=== PATIENT | female | born 1940 | race Caucasian/White ===

== ENCOUNTER 2020-07-27 07:43 | Outpatient (REF) | payer MEDICARE, OTHER, SELFPAY ==
[2020-07-27 11:39] LABS: Hematocrit 38.5 % (37-47); Hemoglobin 12.3 g/dl (12.0-16.0); Mean Corpuscular HGB Conc 31.9 g/dl (31.0-35.0); Mean Corpuscular Hemoglobin 32.8 pg (27.0-33.0); Mean Corpuscular Volume 102.7 fL (80-98); Mean Platelet Volume 10.4 fL (9.4-12.3); Platelet Count 222 X10*3/uL (160-400); Red Blood Count 3.75 X10*6/uL (4.20-5.50); Red Cell Distribution Width 16.6 % (11.0-16.0); White Blood Count 5.1 X10*3/uL (4.8-10.8)
[2020-07-27 12:23] LABS: Alanine Aminotransferase 11 U/L (0-31); Anion Gap 16 (12-20); Aspartate Amino Transferase 18 U/L (5-31); Blood Urea Nitrogen 14 mg/dL (9-16); Calcium 8.5 mg/dL (8.4-10.2); Carbon Dioxide 26 mmol/L (22-29); Chloride 105 mmol/L (96-108); Cholesterol 205 mg/dL; Estimated Glomerular Filt Rate > 60; Glucose Fasting 75 mg/dL (60-99); HDL Cholesterol 61 mg/dL; LDL Cholesterol Calculated 101 mg/dl; Potassium 4.6 mmol/l (3.3-5.1); Sodium 142 mmol/L (135-145); Triglycerides 218 mg/dL
[2020-07-27 12:48] LABS: Free T4 (Free Thyroxine) 1.33 ng/dL (0.71-1.85)
[2020-07-27 13:15] LABS: Thyroid Stimulating Hormone 10.03 mIU/mL (0.32-4.0); Vitamin D 25-OH Total 29.3 ng/mL (>30)
== END 2020-07-27 07:44 | disposition home or self-care (01) ==
LOC: HO.HMGCLDS 07:43
PROVIDERS: PCP Internal Medicine; Visit Provider Internal Medicine
DX: E78.5 Hyperlipidemia, unspecified (principal); I10 Essential (primary) hypertension; K21.9 Gastro-esophageal reflux disease without esophagitis; M06.9 Rheumatoid arthritis, unspecified; E03.9 Hypothyroidism, unspecified; Z78.0 Asymptomatic menopausal state; Z96.651 Presence of right artificial knee joint; K59.03 Drug induced constipation; T40.2X5A Adverse effect of other opioids, initial encounter
CPT/HCPCS: 36415; 80048; 80061; 82306; 84439; 84443; 84450; 84460; 85027

== ENCOUNTER 2020-12-19 08:09 | Outpatient (REF) | payer MEDICARE, OTHER, SELFPAY ==
[2020-12-19 12:16] LABS: Free T4 (Free Thyroxine) 1.22 ng/dL (0.71-1.85); Thyroid Stimulating Hormone 2.68 uIU/mL (0.32-4.0); Vitamin D 25-OH Total 41.3 ng/mL (>30)
[2020-12-19 12:29] LABS: Alanine Aminotransferase 16 U/L (0-31); Aspartate Amino Transferase 18 U/L (5-31); Cholesterol 176 mg/dL; HDL Cholesterol 67 mg/dL; LDL Cholesterol Calculated 89 mg/dl; Triglycerides 104 mg/dL
== END 2020-12-19 08:10 | disposition home or self-care (01) ==
LOC: HO.HMGCLDS 08:09
PROVIDERS: PCP Internal Medicine; Visit Provider Internal Medicine
DX: E03.9 Hypothyroidism, unspecified (principal); E78.5 Hyperlipidemia, unspecified; I10 Essential (primary) hypertension; Z78.0 Asymptomatic menopausal state
CPT/HCPCS: 36415; 80061; 82306; 84439; 84443; 84450; 84460

== ENCOUNTER 2021-06-27 08:28 | Outpatient (REF) | payer MEDICARE, OTHER, SELFPAY ==
[2021-06-27 11:52] LABS: Alanine Aminotransferase 14 U/L (0-31); Anion Gap 14 (12-20); Aspartate Amino Transferase 17 U/L (5-31); Blood Urea Nitrogen 12 mg/dL (9-16); Calcium 9.3 mg/dL (8.4-10.2); Carbon Dioxide 27 mmol/L (22-29); Chloride 105 mmol/L (96-108); Cholesterol 176 mg/dL; Estimated Glomerular Filt Rate > 60; Glucose Fasting 86 mg/dL (60-99); HDL Cholesterol 57 mg/dL; LDL Cholesterol Calculated 96 mg/dl; Potassium 4.6 mmol/L (3.3-5.1); Sodium 141 mmol/L (135-145); Triglycerides 116 mg/dL
[2021-06-27 12:15] LABS: Free T4 (Free Thyroxine) 1.25 ng/dL (0.71-1.85); Thyroid Stimulating Hormone 5.49 uIU/mL (0.32-4.0)
== END 2021-06-27 08:29 | disposition home or self-care (01) ==
LOC: HO.HMGCLDS 08:28
PROVIDERS: PCP Internal Medicine; Visit Provider Internal Medicine
DX: I10 Essential (primary) hypertension (principal); E78.5 Hyperlipidemia, unspecified; E03.9 Hypothyroidism, unspecified; Z78.0 Asymptomatic menopausal state
CPT/HCPCS: 36415; 80048; 80061; 82306; 84439; 84443; 84450; 84460

== ENCOUNTER 2021-09-11 10:03 | Emergency (ER) | payer MEDICARE, OTHER, SELFPAY ==
--- NOTE | ~2021-09-11 | CT_ITS ---
EXAMINATION: CT HIP WITHOUT CONTRAST, LEFT CLINICAL INFORMATION: Atraumatic left hip pain. COMPARISON: None TECHNIQUE: Helical scanning was performed with submillimeter collimation in the axial plane with multiplanar 2-D reconstructions. This CT examination was performed using dose optimization techniques as appropriate, variously including the following: *Automated exposure control *Adjustment of mA and/or kV according to patient size (this includes techniques or standardized protocols for targeted exams where dose is matched to indication/reason for exam; i.e. extremities or head) *Use of iterative reconstruction technique DLP: 412 mGy-cm FINDINGS: There is no acute fracture or malalignment. There is amku-dm-xfcanxjx narrowing of the left hip joint, most prominent posteriorly. There are small marginal osteophytes. There are small enthesophytes at the gluteus tendon insertion sites on the greater trochanter. There are small enthesophytes at the origins of the left hamstring tendons. There are also numerous punctate calcifications in the proximal left hamstring tendons suggesting calcific tendinosis. There are numerous sigmoid diverticula. The partially visualized intrapelvic structures are otherwise unremarkable. CT/CT hip LT wo con IMPRESSION: 1. Irma-ug-izrgaavx osteoarthritis of the left hip. 2. 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 3. Moderate sigmoid diverticulosis.
[2021-09-11 10:37] VITALS: BP 131/68; PULSE 77; RESP 18; TEMP 36.7; O2SAT 98; BMI 38.4
[2021-09-11] MEDS: traMADoL HCL 50 MG TABLET PO (11:44)
--- NOTE | 2021-09-11 12:15 | ED.LOWEXIN ---
HPI - Extremity Injury (Lower) General Chief Complaint: Extremity Injury, Lower Stated Complaint: Hip pain Time Seen by Provider: 09/11/21 11:33 Source: patient Mode of arrival: ambulatory Limitations: no limitations History of Present Illness HPI Narrative: 81-year-old female with a past medical history of herpes zoster, GERD, gastric ulcer, acquired hypothyroidism, nummular dermatitis, hyperlipidemia, hypertension, osteoarthritis and rheumatoid arthritis presenting to the ED with complaints of left hip pain that started a few days ago after she was at the mall shopping. She denies any fevers, chills, dizziness, headache, neck pain/stiffness, chest pain or shortness of breath, dyspnea on exertion, orthopnea, palpitations, abdominal pain, dysuria, hematuria, abnormal vaginal discharge, diarrhea constipation, black or bloody stools, history of DVT or PE, recent travel or immobilization, any estrogen usage, recent surgery or falls, lower extremity edema or calf tenderness, focal weakness, rashes or any other symptoms complaints or concerns at this time. MD complaint: hip injury Onset (ago): day(s) Type of Injury: unknown Place: other (Possibly after she left the mall or in the mall) Severity: moderate Severity scale (1-10): >10 Relieving factors: nothing Exacerbating factors: weight bearing, movement and palpation Context: walking Associated symptoms: able to partially bear weight Other symptoms: none Treatments prior to arrival: other (She has tried eeao-xik-yqtapzm medication no symptomatic relief) Related Data Home Medications Medication Instructions Recorded Confirmed flu vacc [id number](65yr up)-PF 240 ml IM 07/31/20 12/28/20 mcg/0.7 mL intramuscular syringe golimumab 12.5 mg/mL intravenous 100 mg IV Q8W 07/31/20 12/28/20 solution (Simponi ARIA) leucovorin calcium 5 mg tablet 10 mg PO Q OTHER DAY 07/31/20 12/28/20 methotrexate sodium 2.5 mg tablet 25 mg PO QWEEK 07/31/20 12/28/20 jnjedjzn-pqmscbz-sdqt-lutein tablet tab PO .qd tab 07/31/20 12/28/20 acetaminophen 650 mg 650 mg PO Q12H 12/28/20 12/28/20 tablet,extended release (Tylenol 8 Hour) Previous Rx's Medication Instructions Recorded levothyroxine 150 mcg tablet 150 mcg PO .qd for 6 days a week 09/08/20 90 Days #78 tab lisinopril 5 mg tablet 5 mg PO DAILY #90 tab 06/21/21 lovastatin 20 mg tablet 20 mg PO DAILY #90 tab 06/30/21 omeprazole 40 mg capsule,delayed 40 mg PO DAILY #90 cap 07/16/21 release acetaminophen 500 mg tablet 1,000 mg PO QID PRN #14 tab 09/11/21 (Tylenol Extra Strength) cyclobenzaprine 10 mg tablet 10 mg PO Q8H PRN #14 tab 09/11/21 levofloxacin 750 mg tablet 750 mg PO DAILY 7 Days #7 tab 09/11/21 oxycodone 5 mg tablet 5 mg PO Q6H PRN #14 tab 09/11/21 Allergies Allergy/AdvReac Type Severity Reaction Status Date / Time Penicillins [PENICILLINS] Allergy Unknown RASH Verified 12/28/20 10:53 aspirin AdvReac Unknown GI BLEED Verified 12/28/20 10:53 lactose AdvReac Unknown DIARRHEA Verified 12/28/20 10:53 Review of Systems Review of Systems: Constitutional : No Weight loss, No Fever, No Chills, No Night Sweats, No Fatigue, No Malaise ENT/Mouth : No Hearing loss, No Ear Pain, No Nasal Congestion, No Sinus Pain, No Hoarseness, No sore throat, No Rhinorrhea, No Swallowing Difficulty Eyes: No Eye Pain, No Swelling, No Redness, No Foreign Body, No Discharge, No Vision Changes Cardiovascular : No Chest Pain, No SOB, No Dyspnea on Exertion, No Orthopnea, No Edema, No Palpitations Respiratory : No Cough, No Sputum, No Wheezing, No Smoke Exposure, No Dyspnea Gastrointestinal : No Nausea, No Vomiting, No Diarrhea, No Constipation, No abdominal Pain, No Hematochezia, No Melena Genitourinary : no irregular bleeding, No Dysuria, No Urinary Frequency, No Hematuria, No Urinary Incontinence, No Urgency, No Flank Pain, No Urinary Flow Changes, No Hesitancy Musculoskeletal : + joint pain, No Myalgias, No Joint Swelling Skin : No Skin Lesions, No rash Neuro : No Weakness, No Numbness, No Paresthesias, No Loss of Consciousness, No Dizziness, No Headache Psych : No Anxiety/Panic, No Depression, No SI/HI/AH/VH, No Social Issues, Heme/Lymph: No Bruising, No Bleeding,No Lymphadenopathy Endocrine : No Polyuria, No Polydipsia, No Temperature Intolerance Yes all other systems are reviewed and are negative [facility] Past Medical History Attestation statement: The following information was validated with the patient. Medical History Acquired hypothyroidism Dyslipidemia Essential hypertension Gastric ulcer GERD (gastroesophageal reflux disease) Herpes zoster Menopause Nummular dermatitis Osteoarthritis Rheumatoid arthritis Surgical History History of cataract History of total hip replacement History of total left knee replacement (TKR) Family History Family History Father Cirrhosis Mother No problems noted. Social History Social History Alcohol intake: never Advance Directives: Yes Advance Directives Information Provided: Yes Advance Directives on File: No Physical Exam Vital Signs: Vital Signs: Last Vital Signs Temp 98.0 F 09/11/21 10:37 Pulse 77 09/11/21 10:37 Resp 18 09/11/21 10:37 BP 131/68 09/11/21 10:37 Pulse Ox 98 09/11/21 10:37 BMI result Body Mass Index 38.4 vital signs have been reviewed as normal and appeared to be correct. Blood pressure normal. Heart rate normal. Respiration rate normal. Temperature normal. Oxygen saturation normal. Appearance: Alert. Oriented X3. In pain otherwise no other acute distress. Head: Normal external exam. Normocephalic. Atraumatic. Eyes: PERRLA. EOMI. Conjunctiva and sclera normal. Eyelids normal. ENT: Pharynx normal. Uvula midline. Moist mucous membranes. No trismus noted. No drooling noted. No muffled voice noted. Neck: Normal inspection. Neck supple. FROM. No adenopathy. Thyroid Normal. No meningeal signs. No neck mass noted. CVS: Normal heart rate and rhythm. Heart sound normal. Pulses normal throughout. No murmurs/rales/gallops. Respiratory: No respiratory distress. Painless inspiration. Breath sounds normal. No wheezes/rales/rhonchi noted. Chest nontender. No accessory muscle usage noted or decreased air movement noted. Abdomen: Soft and nontender. Bowel sounds normal in all 4 quadrants. No distention noted. No organomegaly noted. No visible injury noted. Back: No CVA tenderness. Full range of motion noted. No rashes/lesion/induration/fluctuance or signs of infection noted. Skin: Skin warm and dry. Normal skin color. Normal skin turgor. No rashes/lesions/lacerations noted. Extremities: Patient moderate tenderness with palpation to the left hip at the lateral aspect although no obvious ligamentous or tendon injury. She does have full range of motion of the left hip/pelvis joint. No signs of infection. No lymphadenopathy noted. No medial tenderness or groin tenderness. No calf tenderness is noted. No lower extremity edema. Otherwise all other Extremities exhibit normal range of motion and nontender. Neuro: Oriented X 3. No motor deficit. No sensory deficit. Reflexes normal. Normal steady gait. No focal neuro deficits noted. Vascular: + radial pulses/+ 2 distal pedal pulses/+2 dorsalis pedis b/l. Normal cap refill. No cyanosis noted to upper extremity nails and lower extremity toes nails. Course Course Course Narrative: 11:40am - 81-year-old female with a past medical history of herpes zoster, GERD, gastric ulcer, acquired hypothyroidism, nummular dermatitis, hyperlipidemia, hypertension, osteoarthritis and rheumatoid arthritis presenting to the ED with complaints of left hip pain that started a few days ago after she was at the mall shopping. She denies any fevers, chills, dizziness, headache, neck pain/stiffness, chest pain or shortness of breath, dyspnea on exertion, orthopnea, palpitations, abdominal pain, dysuria, hematuria, abnormal vaginal discharge, diarrhea constipation, black or bloody stools, history of DVT or PE, recent travel or immobilization, any estrogen usage, recent surgery or falls, lower extremity edema or calf tenderness, focal weakness, rashes or any other symptoms complaints or concerns at this time. Will obtain a CT scan of hip left-sided provide symptomatic relief with tramadol then re-evaluate. Reevaluation(s) Reevaluation #1: - CT scan of left hip revealed to moderate osteoarthritis of left hip with calcified tendinitis the proximal left hamstring tendons and moderate sigmoid diverticulosis no evidence of diverticulitis. Therefore I printed out the results and given to the patient and explained to her that she should follow-up with her primary care provider will DC home with symptomatic treatment instructions return if any new or worsening symptoms. Patient and at bedside understand and agree this plan. Time: 13:55 MDM - Extremity Injury (Lower) Medical Records Attestation: I reviewed the patient's medical records. Imaging Data CT scan of left hip without contrast: Attestation: I personally reviewed and interpreted this imaging study as follows: Radiologist's impression: FINDINGS: There is no acute fracture or malalignment. There is khpo-jz-cqmdykfv narrowing of the left hip joint, most prominent posteriorly. There are small marginal osteophytes. There are small enthesophytes at the gluteus tendon insertion sites on the greater trochanter. There are small enthesophytes at the origins of the left hamstring tendons. There are also numerous punctate calcifications in the proximal left hamstring tendons suggesting calcific tendinosis. There are numerous sigmoid diverticula. The partially visualized intrapelvic structures are otherwise unremarkable.? CT/CT hip LT wo con IMPRESSION: 1. Utfm-uc-zpbatlmm osteoarthritis of the left hip. ? 2. 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 ? 3. Moderate sigmoid diverticulosis.? Discharge Plan Discharge Clinical Impression: Diverticulosis of sigmoid colon, Osteoarthritis of left hip, Calcifying tendinitis Patient Disposition: Home, Self-Care Instructions: Diverticulosis (ED), Osteoarthritis (ED), Tendinitis (ED) Prescriptions: New acetaminophen [Tylenol Extra Strength] 500 mg tablet 1,000 mg PO QID PRN (Reason: fever or pain) Qty: 14 RF: 0 oxycodone 5 mg tablet 5 mg PO Q6H PRN (Reason: pain) Qty: 14 RF: 0 cyclobenzaprine 10 mg tablet 10 mg PO Q8H PRN (Reason: Muscle spasm) Qty: 14 RF: 0 levofloxacin 750 mg tablet 750 mg PO DAILY 7 Days Qty: 7 RF: 0 No Action levothyroxine 150 mcg tablet 150 mcg PO .qd for 6 days a week 90 Days Qty: 78 RF: 4 lisinopril 5 mg tablet 5 mg PO DAILY Qty: 90 RF: 1 lovastatin 20 mg tablet 20 mg PO DAILY Qty: 90 RF: 1 omeprazole 40 mg capsule,delayed release(DR/EC) 40 mg PO DAILY Qty: 90 RF: 2 leucovorin calcium 5 mg tablet 10 mg PO Q OTHER DAY RF: 0 methotrexate sodium 2.5 mg tablet 25 mg PO QWEEK RF: 0 Fluzone HighDose Quad 20-21 PF 240 mcg/0.7 mL syringe IM RF: 0 Simponi ARIA 12.5 mg/mL solution 100 mg IV Q8W RF: 0 ahekwbzv-xdndokm-rfjt-lutein Tablet PO .qd RF: 0 acetaminophen [Tylenol 8 Hour] 650 mg tablet extended release 650 mg PO Q12H RF: 0 Referrals: Amaya Richey MD [Primary Care Provider] - 2 days Print Language: Montserratian
== END 2021-09-11 14:06 | disposition home or self-care (01) ==
PROVIDERS: Emergency Provider Emergency Medicine; PCP Internal Medicine
DX: M16.12 Unilateral primary osteoarthritis, left hip (principal); M65.20 Calcific tendinitis, unspecified site; K57.30 Diverticulosis of large intestine without perforation or abscess without bleeding; I10 Essential (primary) hypertension; M06.9 Rheumatoid arthritis, unspecified
CPT/HCPCS: 73700; 99283; 99284

== ENCOUNTER 2021-12-24 07:32 | Outpatient (REF) | payer MEDICARE, OTHER, SELFPAY ==
[2021-12-24 12:25] LABS: Alanine Aminotransferase 17 U/L (0-31); Albumin Level 4.3 g/dL (3.5-5.0); Alkaline Phosphatase 103 U/L (39-117); Anion Gap 13 (12-20); Aspartate Amino Transferase 19 U/L (5-31); Bilirubin Total 0.5 mg/dL (0.0-1.0); Blood Urea Nitrogen 16 mg/dL (9-16); Calcium 9.9 mg/dL (8.4-10.2); Carbon Dioxide 28 mmol/L (22-29); Chloride 106 mmol/L (96-108); Cholesterol 214 mg/dL; Estimated Glomerular Filt Rate > 60; Glucose Fasting 86 mg/dL (60-99); HDL Cholesterol 61 mg/dL; LDL Cholesterol Calculated 126 mg/dl; Potassium 4.5 mmol/L (3.3-5.1); Sodium 142 mmol/L (135-145); Total Protein 7.3 g/dL (6.5-8.0); Triglycerides 139 mg/dL
[2021-12-24 12:49] LABS: Free T4 (Free Thyroxine) 1.32 ng/dL (0.71-1.85); Thyroid Stimulating Hormone 2.74 uIU/mL (0.32-4.0); Vitamin D 25-OH Total 27.6 ng/mL (>30)
== END 2021-12-24 07:33 | disposition home or self-care (01) ==
LOC: HO.HMGCLDS 07:32
PROVIDERS: Visit Provider Internal Medicine
DX: K21.9 Gastro-esophageal reflux disease without esophagitis (principal); E03.9 Hypothyroidism, unspecified; E78.5 Hyperlipidemia, unspecified; I10 Essential (primary) hypertension; M06.9 Rheumatoid arthritis, unspecified; Z78.0 Asymptomatic menopausal state
CPT/HCPCS: 36415; 80053; 80061; 82306; 84439; 84443

== ENCOUNTER 2022-09-19 08:06 | Outpatient (REF) | payer MEDICARE, OTHER, SELFPAY ==
[2022-09-19 11:45] LABS: Alanine Aminotransferase 17 U/L (0-31); Anion Gap 12 (12-20); Aspartate Amino Transferase 25 U/L (5-31); Blood Urea Nitrogen 14 mg/dL (9-16); Calcium 9.5 mg/dL (8.4-10.2); Carbon Dioxide 25 mmol/L (22-29); Chloride 108 mmol/L (96-108); Cholesterol 234 mg/dL; Estimated Glomerular Filt Rate > 60; Glucose Fasting 98 mg/dL (60-99); HDL Cholesterol 57 mg/dL; LDL Cholesterol Calculated 147 mg/dl; Potassium 4.5 mmol/L (3.3-5.1); Sodium 140 mmol/L (135-145); Triglycerides 151 mg/dL
[2022-09-19 12:06] LABS: Free T4 (Free Thyroxine) 1.37 ng/dL (0.71-1.85); Thyroid Stimulating Hormone 1.03 uIU/mL (0.32-4.0); Vitamin D 25-OH Total 27.5 ng/mL (>30)
== END 2022-09-19 08:07 | disposition home or self-care (01) ==
LOC: HO.HMGCLDS 08:06
PROVIDERS: Absent Provider Internal Medicine Rheumatology; PCP Internal Medicine; Visit Provider Internal Medicine
DX: E03.9 Hypothyroidism, unspecified (principal); E78.5 Hyperlipidemia, unspecified; I10 Essential (primary) hypertension; Z78.0 Asymptomatic menopausal state
CPT/HCPCS: 36415; 80048; 80061; 82306; 84439; 84443; 84450; 84460

== ENCOUNTER 2023-01-29 11:15 | Outpatient (AMB) | payer MEDICARE, OTHER, SELFPAY ==
--- NOTE | 2023-01-29 11:43 | A.OFFPC_ITS ---
Vital Signs 01/29/23 11:45 Height 5 ft 2 in Weight 205 lb 2 oz BMI 37.5 BP 140/74 H Blood Pressure Location Rt brachial Position Sitting Pulse 75 Pulse Source Pulse Oximeter Pulse Oximetry (%) 96 Oxygen Delivery Method Room Air Intake Visit Reasons: follow up Intake Note: Pt is here today for a f/u Allergies Penicillins [PENICILLINS] Allergy (Unknown, Verified 08/04/23 12:16) RASH aspirin Adverse Reaction (Unknown, Verified 08/04/23 12:16) GI BLEED lactose Adverse Reaction (Unknown, Verified 08/04/23 12:16) DIARRHEA Medication List - Last Reconciled 01/29/23 by Amaya Richey MD acetaminophen (Tylenol Extra Strength) 1,000 mg (2 x 500 mg) PO QID PRN calcium carbonate 500 mg PO DAILY cholecalciferol (vitamin D3) 1,250 mcg PO QWEEK 3 months flu vacc [id number](65yr up)-PF mL IM guaifenesin ER (Mucinex) 600 mg PO BID lactase (Lactaid) 3,000 units PO QID PRN leucovorin calcium 10 mg PO Q OTHER DAY levothyroxine 150 mcg PO .qd for 6 days a week 90 days lisinopril 5 mg PO DAILY lovastatin 20 mg PO DAILY methotrexate sodium 25 mg PO QWEEK gyfsltar-oredvqb-kqzx-lutein tabs PO .qd omeprazole 40 mg PO DAILY tocilizumab (Actemra) IV Tobacco use date assessed: 01/29/23 Fall risk assessment: No Falls in past year Last assessed Fall Risk: 01/29/23 HPI follow up HPI Details 83-year-old lady history of acquired hyp othyroidism, dyslipidemia, hypertension and currently being followed by rheumatology for rheumatoid arthritis, here today for follow-up. She had recent fasting labs done 12/24/2022 which showed lipid panel with total cholesterol 199, HDL 64, LDL 110 with a triglyceride of 141. She has been feeling well, compliant with taking her medications. Has recurrent rash under her breasts, which usually gets very itchy. Would like a prescription for nystatin to use as needed [facility] Medical History (Updated 08/04/23 @ 23:37 by Amaya Richey MD) Impaired fasting glucose Vitamin D deficiency Menopause Herpes zoster Nummular dermatitis Gastric ulcer Osteoarthritis GERD (gastroesophageal reflux disease) Acquired hypothyroidism Dyslipidemia Essential hypertension Rheumatoid arthritis Surgical History History of cataract History of total hip replacement History of total left knee replacement (TKR) Family History Father Cirrhosis Mother No problems noted. Daughter Substance use disorder Mental health disorder Social History Housing: House Alcohol intake: never Patient Tobacco Use Status: Never used Tobacco e-Cigarette/Vaping Use: Never Used service: No Current occupational status: retired Cognitive needs: No Hearing needs: No Vision needs: Yes Questionnaire PHQ-9 Over the last 2 weeks, how often have you been bothered by any of the following problems? Depression Screening Interpretation: Negative Source: Developed by Drs. Elbert Massey, Adele Gama, Blair Figueroa and colleagues, with an educational collin from [employer]. Thrive Questionnaire Date Thrive assessed: 09/27/22 AUDIT C Alcohol Use Questionnaire (AUDIT-C) 1. How often do you have a drink containing alcohol?: Never Total Score: 0 COLEEN-7 AMB Questionnaire COLEEN-7 Date COLEEN - 7 assessed: 09/27/22 Source: Developed by Drs. Elbert Massey, Adele Gama, Blair Figueroa and colleagues, with an educational collin from [employer]. Review of Systems Const Denies fatigue, Denies fever(s), Denies headache(s) and Denies weakness Eyes Denies change in vision, Denies eye discharge and Denies itchy eyes ENT Denies dizziness, Denies headache(s), Denies nasal congestion, Denies nasal discharge and Denies sore throat Card Denies chest pain, Denies lightheadedness, Denies palpitations and Denies dyspnea Resp Denies chest congestion, Denies cough, Denies dyspnea and Denies wheezing GI Denies abdominal pain, Denies change in bowel habits and Denies heartburn Denies urinary frequency, Denies dysuria and Denies urinary urgency Musc Reports stiffness Skin/Breast Denies lesions Neuro Denies dizziness, Denies headache(s) and Denies weakness Endo Denies fatigue, Denies polydipsia, Denies polyuria and Denies palpitations Aller/Immun Denies itchy eyes, Denies seasonal rhinorrhea and Denies wheezing Physical exam (Primary Care) Vital Signs: Last Vital Signs Pulse 75 01/29/23 11:45 BP 140/74 H 01/29/23 11:45 Pulse Ox 96 01/29/23 11:45 Oxygen Delivery Method Room Air 01/29/23 11:45 BMI result Body Mass Index 37.5 Tobacco/Smoking Status: Tobacco use Status Tobacco use date assessed 01/29/23 01/29/23 11:53 Patient Tobacco Use Status Never used Tobacco 01/29/23 11:53 e-Cigarette/Vaping Use Never Used 01/29/23 11:53 Depression Screening Interpretation: Negative Thrive Assessment: Date of Thrive Assessment Date Thrive assessed 09/27/22 01/29/23 11:44 Const Other: Alert oriented x3, no acute cardiorespiratory distress noted Orientation/consciousness: patient oriented x3 HENMT Other: Normocephalic, atraumatic, moist oral mucosa Eyes General: appearance normal, both eyes and all related structures Neck Neck: Yes full ROM, Yes no lymphadenopathy and Yes supple Resp Auscultation: clear to auscultation bilaterally Cardio Other: S1-S2 present regular rate and rhythm GI Other: Normal bowel sounds, soft, nontender, no mass palpated Auscultation: normal bowel sounds Skin Other: Mild erythematous patch under both breasts Neuro General: patient oriented x3, gait normal, moves all extremities, Normal light touch and pain sensation, no focal motor deficits and CN's II-XI intact bilaterally Extrem General: Yes full ROM, Yes no joint enlargement, Yes no clubbing, cyanosis or edema and Yes no calf tenderness Assessment and Plan Assessment & Plan (1) Intertrigo: Code(s): L30.4 - Erythema intertrigo Plan: Prescription sent for nystatin to use as directed, advised to keep areas under both breasts clean and warm at all times. (2) Impaired fasting glucose: Code(s): R73.01 - Impaired fasting glucose Plan: Your fasting blood sugars elevated above 100 mg/dL. Ordered hemoglobin A1c. Impaired glucose metabolism O2 at risk for developing diabetes mellitus type 2, as well as heart attack and stroke later on. Lifestyle changes at just weight loss, healthy eating habits, and regular exercise are important, and can prevent the progression to diabetes (3) Dyslipidemia: Code(s): E78.5 - Hyperlipidemia, unspecified Plan: Fasting lipid panel ordered, continue with lovastatin 20 mg daily at bedtime, in addition to adhering to low-cholesterol diet and getting regular exercise. (4) Essential hypertension: Code(s): I10 - Essential (primary) hypertension Plan: Blood pressure at goal of less than 130/80. Continue with lisinopril 5 mg daily. Reinforced importance of following a low sodium diet, getting regular exercise, and lowering stress levels. (5) Acquired hypothyroidism: Code(s): E03.9 - Hypothyroidism, unspecified Plan: Will check TSH and free T4, in the meantime continue with current dose of levothyroxine 150 mcg daily for 6 days a week Medications: New nystatin 1 appl topical DAILY PRN 60 grams 0RF intertrigo Refilled lovastatin 20 mg PO DAILY 90 tabs 3RF lisinopril 5 mg PO DAILY 90 tabs 3RF Coding Level of Care Code Est Pt Level 4 (15317) Diagnoses Intertrigo L30.4 Impaired fasting glucose R73.01 Dyslipidemia E78.5 Essential hypertension I10 Acquired hypothyroidism E03.9
[2023-01-29 11:45] VITALS: BP 140/74; PULSE 75; O2SAT 96; BMI 37.5
== END 2023-01-29 13:25 | disposition home or self-care (01) ==
LOC: HO.HMGC 11:15
PROVIDERS: PCP Internal Medicine; Visit Provider Internal Medicine
DX: L30.4 Erythema intertrigo (principal); R73.01 Impaired fasting glucose; E78.5 Hyperlipidemia, unspecified; I10 Essential (primary) hypertension; E03.9 Hypothyroidism, unspecified
CPT/HCPCS: 99214

== ENCOUNTER 2023-01-29 12:25 | Outpatient (REF) | payer MEDICARE, OTHER, SELFPAY ==
[2023-01-29 15:01] LABS: Estimated Average Glucose 111 mg/dL; Hemoglobin A1c % 5.5 %
[2023-01-29 20:08] LABS: Free T4 (Free Thyroxine) 1.52 ng/dL (0.71-1.85); Thyroid Stimulating Hormone 0.58 uIU/mL (0.32-4.0); Vitamin D 25-OH Total 83.1 ng/mL (>30)
== END 2023-01-29 12:26 | disposition home or self-care (01) ==
LOC: HO.HMGCLDS 12:25
PROVIDERS: PCP Internal Medicine; Visit Provider Internal Medicine
DX: E03.9 Hypothyroidism, unspecified (principal); E55.9 Vitamin D deficiency, unspecified; E78.5 Hyperlipidemia, unspecified; I10 Essential (primary) hypertension; R73.01 Impaired fasting glucose; Z78.0 Asymptomatic menopausal state
CPT/HCPCS: 36415; 82306; 83036; 84439; 84443

== ENCOUNTER 2023-08-04 11:30 | Outpatient (AMB) | payer MEDICARE, OTHER, SELFPAY ==
--- NOTE | 2023-08-04 11:34 | A.OFFVIS_ITS ---
Intake Vital Signs 08/04/23 11:39 Height 5 ft 2 in Weight 204 lb BMI 37.3 BP 140/96 H Blood Pressure Location Lt brachial Position Sitting Pulse 75 Pulse Source Pulse Oximeter Pulse Oximetry (%) 97 Oxygen Delivery Method Room Air Intake Visit Reasons: VASHTI G0439 Intake Note: Pt is here today for her SWV Allergies Penicillins [PENICILLINS] Allergy (Unknown, Verified 08/04/23 12:16) RASH aspirin Adverse Reaction (Unknown, Verified 08/04/23 12:16) GI BLEED lactose Adverse Reaction (Unknown, Verified 08/04/23 12:16) DIARRHEA Medication List - Last Reconciled 08/04/23 by Amaya Richey MD acetaminophen (Tylenol Extra Strength) 1,000 mg (2 x 500 mg) PO QID PRN calcium carbonate 500 mg PO DAILY guaifenesin ER (Mucinex) 600 mg PO BID lactase (Lactaid) 3,000 units PO QID PRN leucovorin calcium 10 mg PO Q OTHER DAY levothyroxine 150 mcg PO .qd for 6 days a week 90 days lisinopril 5 mg PO DAILY lovastatin 20 mg PO DAILY methotrexate sodium 25 mg PO QWEEK nptgdlvv-xttgopg-cxef-lutein tabs PO .qd nystatin 1 appl topical DAILY PRN omeprazole 40 mg PO DAILY tocilizumab (Actemra) IV HPI SWV G0439 HPI Details SWV ? 83 year old lady with osteoarthritis, gastroesophageal reflux disease, acquired hypothyroidism, dyslipidemia, hypertension, and rheumatoid arthritis, here today for her subsequent Annual Wellness Visit.? She has been feeling well , compliant with taking her medications. She no longer gets screening mammograms , colonoscopies, cervical cancer screenings or bone density scan done . She had a fasting lipid panel done 09/19/2022 and had a fasting blood sugar and hemoglobin A1c done 01/29/2023 which came back within normal limits . She received her of yearly flu sh ot this year from her smoking pipe mounter's office, Dr. Zhao the and up-to-date with her pneumonia vaccine and received 1 shingles vaccine, still has to get her COVID booster. ? Medical / Social History Reviewed? Past Medical History ?Yes . ? [place] of Care / Care Team list updated ?Yes . ? Surgical/Hospitalization History ?Yes . ? Current Medications (including OTC and supplements) ?Yes . ? Family History ?Yes . ? Tobacco Control form ?Yes . ? AUDIT-C (Alcohol use) form ?Yes . ? Illicit drug use in Social History ?Yes . ? Current diagnosis of depression? ?No ? Appropriate PHQ2/PHQ9 completed ?Yes . ? Data entered by ?Professor Of Marketing and reviewed by provider ? Fall Risk ? Fall History? Have you had any falls with injury in the past year? ?No . ? Have you had two or more falls in the past year? ?No . ? Fall Risk Assessment: ?No falls in the past year . ? HRA filled out by the patient, reviewed by Provider and scanned. ?SWV ? Balance? Romberg ?negative . ? Tandem walk ?unable . ? Walk and Turn ?Yes . ? Rise from sit to stand ?Yes . ?Vision? Corrective lens ?non ? Vision screen ?, goes to Dr. Rausch ?Hearing? Whisper test ?pass . ?Written Plan?Completed. See Patient Documents.? 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 Daughter Substance use disorder Mental health disorder Social History Housing: House Alcohol intake: never Patient Tobacco Use Status: Never used Tobacco e-Cigarette/Vaping Use: Never Used service: No Current occupational status: retired Cognitive needs: No Hearing needs: No Vision needs: Yes Questionnaire Medicare Wellness Checkup What is your age?: 80 or older What gender do you identify with?: female During the past 4 weeks, how much have you been bothered by emotional problems such as feeling anxious, depressed, irritable, sad or downhearted, and blue?: not at all During the past 4 weeks, has your physical & emotional health limited your social activities with family, friends, neighbors, or groups?: slightly During the past 4 weeks, how much bodily pain have you generally had?: mild pain During the past 4 weeks, was someone available to help you if you needed & wanted help?: yes, quite a bit During the past 4 weeks, what was the hardest physical activity you could do for at least 2 minutes?: moderate Can you get to places out of walking distance without help? (For eg., can you travel alone on buses, taxis or drive your car?): Yes Can you go shopping for groceries or clothes without someone's help?: Yes Can you prepare your own meals?: Yes Can you do your housework without help?: No Because of any health problems, do you need the help of another person with your personal care needs such as eating, bathing, dressing or getting around the house?: No Can you handle your own money without help?: Yes During the past 4 weeks, how would you rate your health in general?: fair During the past 4 weeks how have things been going for you?: good & bad parts about equal Are you having difficulties driving your car?: no Do you always fasten your seat belt when you are in a car?: yes, usually During past 4 weeks, have you been bothered by the following: never: Falling or dizzy when standing up, Sexual problems?, Trouble eating well? and Problems using the telephone? and sometimes: Teeth or denture problems? and Tiredness or fatigue? Have you fallen 2 or more times in the past year?: No Are you afraid of falling?: No Are you a smoker?: no During the past 4 weeks, how many drinks of wine, beer, or other alcoholic beverages did you have?: no alcohol at all Do you exercise for about 20 minutes 3 or more times a week?: no, I usually do not exercise this much Have you been given information to help with the following?: yes: Hazards in your house that might hurt you? and yes: Keeping track of your medications? How often do you have trouble taking medicines the way you have been told to take them?: I always take medicine as prescribed How confident are you that you can control & manage most of your health problems?: very confident What is your race?: White Mini Mental State Exam (MMSE) Orientation What is the (year) (season) (date) (day) (month)?: year (2022), season (fall), date (08/04/23), day (friday) and month (July) Where are we (state) (county) (town or city) (hospital) (floor)?: state ([place]), county ([place]), town or city ([place]) and hospital/clinic ([facility]) Score Score: 9 Activity of Daily Living Bathing - sponge bath, tub bath or shower: receives no assistance (gets in/out by self, if usual bathing means Toileting - going to the 'toilet room' for urine/bowel elimination & cleaning self/arranging clothes: goes to toilet room, cleans self, arranges clothes without help Transfer: moves in & out of bed and chair without help (may use support object) Continence: has occasional 'accidents' Feeding: feeds self without help Total Score: 0 Information obtained from: patient Using telephone: independent Traveling: independent Shopping: independent Preparing meals: independent Housework: independent Taking medicine: independent Managing money: independent PHQ-9 Over the last 2 weeks, how often have you been bothered by any of the following problems? 1. Little interest or pleasure in doing things: not at all 2. Feeling down, depressed, or hopeless: not at all 3. Trouble falling or staying asleep, or sleeping too much: several days 4. Feeling tired or having little energy: several days 5. Poor appetite or overeating: not at all 6. Feeling bad about yourself - or that you are a failure or have let yourself or your family down: not at all 7. Trouble concentrating on things, such as reading the newspaper or watching television: not at all 8. Moving or speaking so slowly that other people could have noticed. Or the opposite - being so fidgety or restless that you have been moving around a lot more than usual: not at all 9. Thoughts that you would be better off or of hurting yourself in some way: not at all Total score: 2 Depression Screening Interpretation: Negative Depression Screening Done: Yes 11162 - PHQ-9 Billing: Yes Source: Developed by Drs. Elbert Massey, Adele Gama, Blair Figueroa and colleagues, with an educational collin from [employer]. Physical Exam Vital Signs: Last Vital Signs Pulse 75 08/04/23 11:39 BP 140/96 H 08/04/23 11:39 Pulse Ox 97 08/04/23 11:39 Oxygen Delivery Method Room Air 08/04/23 11:39 BMI result Body Mass Index 37.3 Results Reviewed Results Reviewed: Laboratory Tests 09/19/22 09/19/22 01/29/23 08:12 08:12 12:34 Estimat Average Glucose 111 Hemoglobin A1c % 5.5 Triglycerides 151 Cholesterol 234 LDL Cholesterol, Calc 147 HDL Cholesterol 57 25-OH Vitamin D Total TSH Free T4 01/29/23 12:34 Estimat Average Glucose Hemoglobin A1c % Triglycerides Cholesterol LDL Cholesterol, Calc HDL Cholesterol 25-OH Vitamin D Total 83.1 TSH 0.58 Free T4 1.52 Assessment & Plan Assessment & Plan (1) Encounter for subsequent annual wellness visit (AWV) in Medicare patient: Code(s): Z00.00 - Encounter for general adult medical examination without abnormal findings Plan: Reviewed, discussed with patient and updated her medical wellness checklist. Reminded to get her COVID booster, and to check with her pharmacy to see if she already received her 2nd dose of Shingrix vaccine. (2) Impaired fasting glucose: Code(s): R73.01 - Impaired fasting glucose Plan: Latest hemoglobin A1c is within normal limits, discussed with patient getting her fasting glucose levels well controlled, as Impaired glucose metabolism O2 increases your risk for developing diabetes mellitus type 2, as well as heart attack and stroke later on. Staying active,, healthy eating habits, and regular exercise are important, and can prevent the progression to diabetes (3) Osteoarthritis: Code(s): M19.90 - Unspecified osteoarthritis, unspecified site Plan: Takes acetaminophen as needed (4) GERD (gastroesophageal reflux disease): Code(s): K21.9 - Gastro-esophageal reflux disease without esophagitis Plan: Controlled on omeprazole 40 mg daily (5) Acquired hypothyroidism: Code(s): E03.9 - Hypothyroidism, unspecified Plan: Latest thyroid levels are within normal limits, continued on current dose of levothyroxine (6) Dyslipidemia: Code(s): E78.5 - Hyperlipidemia, unspecified Plan: Last fasting labs showed mildly elevated LDL cholesterol. Currently on lovastatin 20 mg daily. Patient states that her smoking pipe mounter also check her fasting lipid panel and she does have an appointment to see him next month (7) Essential hypertension: Code(s): I10 - Essential (primary) hypertension Plan: Currently on lisinopril 5 mg daily (8) Rheumatoid arthritis: Code(s): M06.9 - Rheumatoid arthritis, unspecified Qualifiers: Rheumatoid arthritis location: multiple sites Rheumatoid factor presence: unspecified presence Qualified Code(s): M06.9 - Rheumatoid arthritis, unspecified Plan: Followed by Rheumatology currently on methotrexate (9) Advanced directives, counseling/discussion: Code(s): Z71.89 - Other specified counseling Plan: Had a conversation with patient about Advanced Directives. Advanced Directives help patients prepare for current and future decisions about their medical treatment and place of care. Discussed with patient that it is a process where a patients current condition and prognosis are reviewed, their wishes for information regarding their illness are elicited, and likely medical dilemmas are presented and options discussed. She already made her healthcare proxy, and states that she will provide with a copy to put in her medical record , and she has already completed a MOLST form on last visit. These forms can be amended as needed, reviewed yearly and make changes as needed Quality Reporting (2019) Depression/Bipolar (159/160/161/177) PHQ-9: Total score: 2 Coding Level of Care Code Medicare Subsequent (G0439) Diagnoses Encounter for subsequent annual wellness visit (AWV) in Medicare patient Z00.00 Impaired fasting glucose R73.01 Osteoarthritis M19.90 GERD (gastroesophageal reflux disease) K21.9 Acquired hypothyroidism E03.9 Dyslipidemia E78.5 Essential hypertension I10 Rheumatoid arthritis involving multiple sites, unspecified whether rheumatoid factor present M06.9 Rheumatoid arthritis location: multiple sites Rheumatoid factor presence: unspecified presence Advanced directives, counseling/discussion Z71.89 CPT Codes Advance Care Planning - Advance Care Planning discussion: On file, no changes ([id number]) Advance Care Planning - Time spent: 1-15 minutes, on File ([id number]) Advance Care Planning Advance Care Planning discussion: On file, no changes (MOLST) Date of discussion: 08/04/23 Who was present: PATIENT Time spent: 1-15 minutes, on File Actual minutes spent: 15
[2023-08-04 11:39] VITALS: BP 140/96; PULSE 75; O2SAT 97; BMI 37.3
== END 2023-08-04 15:04 | disposition home or self-care (01) ==
PROVIDERS: Visit Provider Internal Medicine
DX: Z00.00 Encounter for general adult medical examination without abnormal findings (principal); M06.9 Rheumatoid arthritis, unspecified; R73.01 Impaired fasting glucose; M19.90 Unspecified osteoarthritis, unspecified site; K21.9 Gastro-esophageal reflux disease without esophagitis; E03.9 Hypothyroidism, unspecified; E78.5 Hyperlipidemia, unspecified; I10 Essential (primary) hypertension; Z71.89 Other specified counseling
CPT/HCPCS: 1123F; G0439

== ENCOUNTER 2024-01-22 07:46 | Outpatient (REF) | payer MEDICARE, OTHER, SELFPAY ==
[2024-01-22 10:17] LABS: MANUAL DIFF FLAG NO
[2024-01-22 10:36] LABS: Basophils Percent Auto 0.9 % (0-2); Eosinophils Absolute Auto 0.2 X10*3/uL (0.0-0.4); Eosinophils Percent Auto 5.7 % (0-4); Hematocrit 40.6 % (37.0-47.0); Hemoglobin 13.5 g/dl (12.0-16.0); Lymphocytes Absolute Auto 1.7 X10*3/uL (1.2-4.9); Lymphocytes Percent Auto 49.3 % (20-40); Mean Corpuscular HGB Conc 33.3 g/dl (31.0-35.0); Mean Corpuscular Hemoglobin 34.9 pg (27.0-33.0); Mean Corpuscular Volume 104.9 fL (80.0-98.0); Mean Platelet Volume 11.1 fL (9.4-12.3); Monocytes Absolute Auto 0.4 X10*3/uL (0.1-1.2); Monocytes Percent Auto 10.8 % (2-11); Neutrophils Absolute Auto 1.2 x10*3/uL (2.0-8.3); Neutrophils Percent Auto 33.3 % (45-73); Platelet Count 182 X10*3/uL (160-400); Red Blood Count 3.87 X10*6/uL (4.20-5.50); Red Cell Distribution Width 14.2 % (11.0-16.0); White Blood Count 3.5 X10*3/uL (4.8-10.8)
[2024-01-22 11:09] LABS: Estimated Average Glucose 111 mg/dL; Hemoglobin A1c % 5.5 % (<6.0)
[2024-01-22 11:39] LABS: Alanine Aminotransferase 12 U/L (0-31); Anion Gap 14 (12-20); Aspartate Amino Transferase 18 U/L (5-31); Blood Urea Nitrogen 14 mg/dL (9-16); Carbon Dioxide 24 mmol/L (22-29); Chloride 108 mmol/L (96-108); Cholesterol 193 mg/dL (<200); Estimated Glomerular Filt Rate > 60; Free T4 (Free Thyroxine) 1.31 ng/dL (0.71-1.85); Glucose Fasting 88 mg/dL (60-99); HDL Cholesterol 57 mg/dL (>40); LDL Cholesterol Calculated 113 mg/dL (<100); Potassium 4.2 mmol/L (3.3-5.1); Sodium 142 mmol/L (135-145); Thyroid Stimulating Hormone 1.76 uIU/mL (0.32-4.0); Triglycerides 119 mg/dL (<150); Vitamin D 25-OH Total 46.6 ng/mL (>30)
== END 2024-01-22 07:47 | disposition home or self-care (01) ==
LOC: HO.HMGCLDS 07:46
PROVIDERS: PCP Internal Medicine; Visit Provider Internal Medicine
DX: R73.01 Impaired fasting glucose (principal); K25.9 Gastric ulcer, unspecified as acute or chronic, without hemorrhage or perforation; K21.9 Gastro-esophageal reflux disease without esophagitis; E03.9 Hypothyroidism, unspecified; E78.5 Hyperlipidemia, unspecified; I10 Essential (primary) hypertension; M06.9 Rheumatoid arthritis, unspecified; Z78.0 Asymptomatic menopausal state
CPT/HCPCS: 36415; 80048; 80061; 82306; 83036; 84439; 84443; 84450; 84460; 85025

== ENCOUNTER 2024-02-06 08:20 | Outpatient (AMB) | payer MEDICARE, OTHER, SELFPAY ==
--- NOTE | 2024-02-06 08:15 | A.OFFPC_ITS ---
Intake Visit Reasons: f/u labs [phone] Intake Note: Pt is having a TH visit to f/u labs Allergies Penicillins [PENICILLINS] Allergy (Unknown, Verified 02/08/24 19:09) RASH aspirin Adverse Reaction (Unknown, Verified 02/08/24 19:09) GI BLEED lactose Adverse Reaction (Unknown, Verified 02/08/24 19:09) DIARRHEA Medication List - Last Reconciled 02/06/24 by Amaya Richey MD acetaminophen (Tylenol Extra Strength) 1,000 mg (2 x 500 mg) PO QID PRN calcium carbonate 500 mg PO DAILY lactase (Lactaid) 3,000 units PO QID PRN leucovorin calcium 10 mg PO Q OTHER DAY levothyroxine 150 mcg PO .qd for 6 days a week 90 days lisinopril 5 mg PO DAILY lovastatin 20 mg PO DAILY methotrexate sodium 25 mg PO QWEEK gcexrnfv-fgbyfdd-yahb-lutein tabs PO .qd nabumetone 500 mg PO BID nystatin 1 appl topical DAILY PRN omeprazole 40 mg PO DAILY tocilizumab (Actemra) IV Tobacco use date assessed: 02/06/24 Fall risk assessment: No Falls in past year Last assessed Fall Risk: 02/06/24 Dental Screening Dental Screen Date: 02/06/24 Did you have a dental visit in the last 12 months?: Yes Did you have a dental problem in the last 6 months where you did not have access to dental care?: Yes Was dental information given to patient?: Patient has dentist HPI f/u labs [phone] HPI Details 84-year-old lady with hyperlipidemia and hypothyroidism and history of impaired fasting glucose, here today for a follow-up. Has been compliant with taking her medications and tries to adhere to a healthy diet. Has been feeling well with no complaints at present time. Latest fasting labs showed lipids and thyroid levels are within normal limits as well as fasting glucose level. [facility] Medical History Impaired fasting glucose Vitamin D deficiency Menopause Herpes zoster Nummular dermatitis Gastric ulcer Osteoarthritis GERD (gastroesophageal reflux disease) Acquired hypothyroidism Dyslipidemia Essential hypertension Rheumatoid arthritis Surgical History History of cataract History of total hip replacement History of total left knee replacement (TKR) Family History Father Cirrhosis Mother No problems noted. Daughter Substance use disorder Mental health disorder Social History Housing: House Alcohol intake: never Patient Tobacco Use Status: Never used Tobacco e-Cigarette/Vaping Use: Never Used service: No Current occupational status: retired Cognitive needs: No Hearing needs: No Vision needs: Yes Questionnaire PHQ-9 Over the last 2 weeks, how often have you been bothered by any of the following problems? 1. Little interest or pleasure in doing things: not at all 2. Feeling down, depressed, or hopeless: not at all 3. Trouble falling or staying asleep, or sleeping too much: not at all 4. Feeling tired or having little energy: not at all 5. Poor appetite or overeating: not at all 6. Feeling bad about yourself - or that you are a failure or have let yourself or your family down: not at all 7. Trouble concentrating on things, such as reading the newspaper or watching television: not at all 8. Moving or speaking so slowly that other people could have noticed. Or the opposite - being so fidgety or restless that you have been moving around a lot more than usual: not at all 9. Thoughts that you would be better off or of hurting yourself in some way: not at all Total score: 0 Depression Screening Interpretation: Negative Depression Screening Done: Yes 50096 - PHQ-9 Billing: Yes Source: Developed by Drs. Elbert Massey, Adele Gama, Blair Figueroa and colleagues, with an educational collin from [employer]. Thrive Questionnaire Date Thrive assessed: 02/06/24 I am a: Patient What is your living situation today?: I have a steady place to live Within the past 12 months, did the food you bought not last and you didn't have the money to get more?: Never true Within the past 12 months, did you worry whether your food would run out before you got money to buy more?: Never true Do you have trouble paying for medicines?: No Do you have trouble getting transportation to medical appointments?: No Do you have trouble paying your heating and electricity bill?: No Do you have trouble taking care of your child, family member or friend?: No Do you have trouble with day-to-day activities such as bathing, preparing meals, shopping, managing finances, etc.?: No Are you currently unemployed and looking for a job?: No Are you interested in more education?: No THRIVE Score: 0 AUDIT C Alcohol Use Questionnaire (AUDIT-C) 1. How often do you have a drink containing alcohol?: Never Total Score: 0 COLEEN-7 AMB Questionnaire COLEEN-7 Date COLEEN - 7 assessed: 02/06/24 Feeling nervous, anxious, or on edge: 0 = Not at all Not being able to stop or control worryin = Not at all Worrying too much about different things: 0 = Not at all Trouble relaxin = Not at all Being so restless that it is hard to sit still: 0 = Not at all Becoming easily annoyed or irritable: 0 = Not at all Feeling afraid as if something awful might happen: 0 = Not at all Total COLEEN-7 score (0-4 normal; 5-9 mild; 10-14 moderate; 15-21 severe): 0 Source: Developed by Drs. Elbert Massey, Adele Gama, Blair Figueroa and colleagues, with an educational collin from [employer]. COLEEN-7 Assessment Billing COLEEN-7 Assessment Tool: COLEEN-7 Assessment 70791 Review of Systems Const Denies fatigue, Denies fever(s), Denies headache(s) and Denies weakness Eyes Denies change in vision ENT Denies dizziness, Denies headache(s) and Denies nasal congestion Card Denies chest pain, Denies lightheadedness, Denies palpitations and Denies dyspnea Resp Denies chest congestion, Denies cough, Denies dyspnea and Denies wheezing GI Denies abdominal pain, Denies change in bowel habits and Denies heartburn Denies urinary frequency, Denies dysuria and Denies urinary urgency Musc Reports stiffness Skin/Breast Denies lesions Neuro Denies dizziness, Denies headache(s) and Denies weakness Psych Reports no additional complaints Endo Denies fatigue, Denies polydipsia, Denies polyuria and Denies palpitations Romario/Lymph Reports no additional complaints Aller/Immun Denies seasonal rhinorrhea and Denies wheezing Physical exam (Primary Care) Tobacco/Smoking Status: Tobacco use Status Tobacco use date assessed 02/06/24 02/06/24 08:20 Patient Tobacco Use Status Never used Tobacco 02/06/24 08:20 e-Cigarette/Vaping Use Never Used 02/06/24 08:20 PHQ-9: PHQ-9 Score PHQ-9: Total score 0 02/06/24 08:32 Depression Screening Interpretation: Negative Thrive Assessment: Date of Thrive Assessment Date Thrive assessed 02/06/24 02/06/24 08:20 Telehealth Telehealth Telehealth Platform: [facility] Location of provider rendering services: practice address Location of patient: address on file Patient Identification confirmed using: Name, : Yes Telehealth method: video Patient verbally consented to treatment: Yes Patient verbally consented to billing insurance company: Yes Patient informed of any privacy concerns related to visit: Yes Minutes spent on Phone/Video with Pt.: 15 Results Reviewed Results Reviewed: Name: Doris Leigh Age/Sex: 84/F : 1940 Unit#: [id number] Attend Dr: Amaya Richey MD Re01/22/24 Status: DEP REF Location: [facility] Disch: SPEC : [id number] TIFFANIE: 01/22/24 STATUS: COMP REQ : [id number] RECD: 01/22/24-[address]: Amaya Richey MD COMP: 01/22/24 ENTERED: 01/22/24-[address]: ORDERED: Met Prof Fast, AST, ALT, Lipid Panel, Vitamin D 25-OH, Free T4, TSH Test Result Flag Reference Sodium 142 135-145 mmol/L Potassium 4.2 3.3-5.1 mmol/L CL 108 96-108 mmol/L CO2 24 22-29 mmol/L Gap 14 12-20 BUN 14 9-16 mg/dL Creat 0.76 0.5-1.4 mg/dL EGFR > 60 NOTE: For -Israeli individuals, multiply the result by 1.210. Chronic Kidney Disease: Estimated GFR < 60 mL/min/1.73m2 Severe Kidney Disease: Estimated GFR < 15 mL/min/1.73m2 FBS 88 60-99 mg/dL CA 10.0 8.4-10.2 mg/dL AST (GOT) 18 5-31 U/L ALT (GPT) 12 0-31 U/L Triglyceride 119 <150 mg/dL Desirable Triglyceride: less than 150 mg/dL Borderline High Triglyceride 150-199 mg/dL High Triglyceride: 200-499 mg/dL Very High Triglyceride: greater than or equal to 5OO mg/dL Cholesterol 193 <200 mg/dL Desirable Cholesterol: less than 200 mg/dL Borderline High Cholesterol: 200-239 mg/dL High Cholesterol: greater than 239 mg/dL LDL Calculated 113 H <100 mg/dL Desirable LDL: less than 100 mg/dL Near Optimal/Above Optimal LDL: 110-129 mg/dL Borderline High LDL: 130-159 mg/dL High LDL: 160-189 mg/dL Very High LDL: greater than or equal to 190 mg/dL HDL 57 >40 mg/dL Desirable HDL: greater than 40 mg/dL Note: This HDL assay may give artificially low results in patients with liver disease. Vit D 25-OH Tot 46.6 >30 ng/mL Health Based Reference Values* < 20 ng/mL Deficient 20-30 ng/mL Insufficient > 30 ng/mL Sufficient *Davide TAYLOR. N Engl J Med. 2007;357:266-280 Care must be taken in interpreting Vitamin D results from different laboratories and methodologies. Published data demonstrated that results from patients undergoing hemodialysis may show a negative bias when tested with various automated 25-OH vitamin D assays when compared to LC-MS/MS. When testing samples from patients whose predominant form of Vitamin D is Vitamin D2, such as patients receiving Vitamin D2 supplementation, results that are subtherapeutic should be confirmed with another method such as LC-MS/MS. Free T4 1.31 0.71-1.85 ng/dL TSH 3rd Gen. 1.76 0.32-4.0 uIU/mL TSH 3rd Generation ([facility]) Name: Doris Leigh Age/Sex: 84/F : 1940 Unit#: [id number] Attend Dr: Amaya Richey MD Re01/22/24 Status: DEP REF Location: [facility] Disch: SPEC : [id number] TIFFANIE: 01/22/24 STATUS: COMP REQ : [id number] RECD: 01/22/[address]: Amaya Richey MD COMP: 01/22/24 ENTERED: 01/22/24 [facility] DR: ORDERED: CBC Auto Diff Test Result Flag Reference WBC 3.5 L 4.8-10.8 X10*3/uL RBC 3.87 L 4.20-5.50 X10*6/uL HGB 13.5 12.0-16.0 g/dl HCT 40.6 37.0-47.0 % MCV 104.9 H 80.0-98.0 fL MCH 34.9 H 27.0-33.0 pg MCHC 33.3 31.0-35.0 g/dl RDW 14.2 11.0-16.0 % PLT 182 160-400 X10*3/uL MPV 11.1 9.4-12.3 fL Neut Pct Auto 33.3 L 45-73 % ImGran Pct Auto 0.0 0.0-0.4 % Lymp Pct Auto 49.3 H 20-40 % Wise Pct Auto 10.8 2-11 % Eos Pct Auto 5.7 H 0-4 % Baso Pct Auto 0.9 0-2 % NRBC Pct Auto 0.0 0.0-0.2 /100WBC ANC Neut Abs # 1.2 L 2.0-8.3 x10*3/uL ImGran Abs Auto 0.00 0.00-0.03 X10*3/uL Lymph Abs Auto 1.7 1.2-4.9 X10*3/uL Wise Abs Auto 0.4 0.1-1.2 X10*3/uL Eos Abs Auto 0.2 0.0-0.4 X10*3/uL Baso Abs Auto 0.0 0.0-0.2 X10*3/uL NRBC Abs Auto 0.000 0.0-0.012 X10*3/uL Assessment and Plan Assessment & Plan (1) Dyslipidemia: Code(s): E78.5 - Hyperlipidemia, unspecified Plan: Latest fasting labs are within normal limits, continued on lovastatin 20 mg daily in addition to adhering to healthy eating habits and regular exercise. (2) Acquired hypothyroidism: Code(s): E03.9 - Hypothyroidism, unspecified Plan: Thyroid levels are within normal limits. Continue with levothyroxine 150 mcg once a day for 6 days a week and then none on Friday, then restart back again on the same dosing frequency (3) Impaired fasting glucose: Code(s): R73.01 - Impaired fasting glucose Plan: Latest fasting labs are within normal limits. Continue with healthy eating hab its and regular exercise. Orders: Orders Lipid Panel 07/26/24 E03.9 - Hypothyroidism, unspecified, E78.5 - Hyperlipidemia, unspecified Thyroid Stimulating Hormone 07/26/24 E03.9 - Hypothyroidism, unspecified, E78.5 - Hyperlipidemia, unspecified Free T4 (Free Thyroxine) 07/26/24 E03.9 - Hypothyroidism, unspecified, E78.5 - Hyperlipidemia, unspecified Aspartate Amino Transferase 07/26/24 E03.9 - Hypothyroidism, unspecified, E78.5 - Hyperlipidemia, unspecified Alanine Aminotransferase 07/26/24 E03.9 - Hypothyroidism, unspecified, E78.5 - Hyperlipidemia, unspecified Medications: Refilled lovastatin 20 mg PO DAILY 90 tabs 3RF Coding Level of Care Code Tele Est Pt Level 4 (13998) Diagnoses Dyslipidemia E78.5 Acquired hypothyroidism E03.9 Impaired fasting glucose R73.01 Additional Codes COLEEN-7 Assessment Billing - COLEEN-7 Assessment Tool: COLEEN-7 Assessment 67521 ([id number])
== END 2024-02-06 13:59 | disposition home or self-care (01) ==
LOC: HO.HMGC 08:20
PROVIDERS: PCP Internal Medicine; Visit Provider Internal Medicine
DX: E78.5 Hyperlipidemia, unspecified (principal); E03.9 Hypothyroidism, unspecified; R73.01 Impaired fasting glucose
CPT/HCPCS: 99214

== ENCOUNTER 2025-01-05 11:37 | Outpatient (AMB) | payer MEDICARE, OTHER, SELFPAY ==
--- NOTE | 2025-01-05 12:15 | A.OFFPC_ITS ---
Vital Signs 01/05/25 12:18 Height 5 ft 3 in Weight 190 lb BMI 33.7 BP 142/82 H Blood Pressure Location Lt brachial Position Sitting Respiration 16 Pulse 78 Pulse Source Pulse Oximeter Temp 97.7 F Temp Source Oral Pulse Oximetry (%) 97 Oxygen Delivery Method Room Air Intake Visit Reasons: f/u rehap Intake Note: Pt is here today for her f/u rehap Allergies Penicillins [PENICILLINS] Allergy (Unknown, Verified 01/05/25 12:45) RASH aspirin Adverse Reaction (Unknown, Verified 01/05/25 12:45) GI BLEED lactose Adverse Reaction (Unknown, Verified 01/05/25 12:45) DIARRHEA Medication List - Last Reconciled 01/05/25 by Amaya Richey MD acetaminophen (Tylenol Extra Strength) 1,000 mg (2 x 500 mg) PO QID PRN calcium carbonate 500 mg PO DAILY clotrimazole-betamethasone 1-0.05 % 1 appl topical BID 2 weeks lactase (Lactaid) 3,000 units PO QID PRN leucovorin calcium 10 mg PO Q OTHER DAY levothyroxine 150 mcg PO .qd for 6 days a week 90 days lisinopril 5 mg PO DAILY lovastatin 20 mg PO DAILY methotrexate sodium 25 mg PO QWEEK ntqrflvg-esynvqm-sozi-lutein tabs PO .qd nabumetone 500 mg PO BID nystatin 1 appl topical DAILY PRN omeprazole 40 mg PO DAILY tocilizumab (Actemra) IV Tobacco use date assessed: 01/05/25 Fall risk assessment: 2 + Falls in past year Last assessed Fall Risk: 01/05/25 Dental Screening Dental Screen Date: 01/05/25 Did you have a dental visit in the last 12 months?: Yes Did you have a dental problem in the last 6 months where you did not have access to dental care?: No Was dental information given to patient?: Patient has dentist HPI f/u rehap HPI Details 85-year-old lady with history of acquire d hypothyroidism, hypertension, dyslipidemia, rheumatoid arthritis and osteoarthritis, here today for follow-up after recent discharge from rehab. She has history of right femur periprosthetic fracture with ORIF last 07/08/[address] Zambrano at [facility] who underwent rehab now is weight-bearing as tolerated with a walker, and still receiving physical therapy. She is now back home, and takes Tylenol as needed for pain.. Blood pressure today is within acceptable limits at 142/82, currently co mpliant with taking her medications. She has been feeling well, with no new complaints at present time. [facility] Medical History (Updated 01/10/25 @ 01:43 by Amaya Richey MD) History of femur fracture Impaired fasting glucose Vitamin D deficiency Menopause Herpes zoster Nummular dermatitis Gastric ulcer Osteoarthritis GERD (gastroesophageal reflux disease) Acquired hypothyroidism Dyslipidemia Essential hypertension Rheumatoid arthritis Surgical History (Updated 01/10/25 @ 01:39 by Amaya Richey MD) History of open reduction and internal fixation (ORIF) procedure History of cataract History of total hip replacement History of total left knee replacement (TKR) Family History Father Cirrhosis Mother No problems noted. Daughter Substance use disorder Mental health disorder Social History Housing: House Alcohol intake: never Patient Tobacco Use Status: Never used Tobacco e-Cigarette/Vaping Use: Never Used service: No Current occupational status: retired Cognitive needs: No Hearing needs: No Vision needs: Yes Questionnaire PHQ-9 Over the last 2 weeks, how often have you been bothered by any of the following problems? Depression Screening Interpretation: Negative Depression Screening Done: Yes Source: Developed by Drs. Elbert Massey, Blair Duong and colleagues, with an educational collin from [employer]. Thrive Questionnaire Date Thrive assessed: 02/06/24 COLEEN-7 AMB Questionnaire COLEEN-7 Date COLEEN - 7 assessed: 02/06/24 Source: Developed by Drs. Elbert Massey, Blair Duong and colleagues, with an educational collin from [employer]. Review of Systems Const Denies fever(s) and Denies headache(s) Eyes Denies change in vision ENT Denies dizziness, Denies headache(s) and Denies nasal congestion Card Denies chest pain, Denies lightheadedness, Denies palpitations and Denies dyspnea Resp Denies chest congestion, Denies cough and Denies dyspnea GI Denies abdominal pain, Denies change in bowel habits and Denies heartburn Denies urinary frequency, Denies dysuria and Denies urinary urgency Musc Reports stiffness Skin/Breast Denies lesions Neuro Denies dizziness and Denies headache(s) Psych Reports no additional complaints Endo Denies polydipsia, Denies polyuria and Denies palpitations Romario/Lymph Reports no additional complaints Aller/Immun Denies seasonal rhinorrhea Physical exam (Primary Care) Vital Signs: Last Vital Signs Temp 97.7 F 01/05/25 12:18 Pulse 78 01/05/25 12:18 Resp 16 01/05/25 12:18 BP 142/82 H 01/05/25 12:18 Pulse Ox 97 01/05/25 12:18 Oxygen Delivery Method Room Air 01/05/25 12:18 BMI result Body Mass Index 33.7 Tobacco/Smoking Status: Tobacco use Status Tobacco use date assessed 01/05/25 01/05/25 12:21 Patient Tobacco Use Status Never used Tobacco 01/05/25 12:21 e-Cigarette/Vaping Use Never Used 01/05/25 12:21 Depression Screening Interpretation: Negative Thrive Assessment: Date of Thrive Assessment Date Thrive assessed 02/06/24 01/05/25 12:21 Const Other: Alert oriented x3, no acute cardiorespiratory distress noted Orientation/consciousness: patient oriented x3 HENMT Other: Normocephalic, atraumatic, moist oral mucosa Eyes General: appearance normal, both eyes and all related structures Neck Neck: Yes full ROM, Yes no lymphadenopathy and Yes supple Resp Auscultation: clear to auscultation bilaterally Cardio Other: S1-S2 present regular rate and rhythm GI Other: Normal bowel sounds, soft, nontender, no mass palpated Auscultation: normal bowel sounds Skin Other: Clean and dry surgical incision site Neuro General: patient oriented x3, gait normal, moves all extremities, Normal light touch and pain sensation, no focal motor deficits and CN's II-XI intact bilaterally Extrem General: Yes full ROM, Yes no joint enlargement, Yes no clubbing, cyanosis or edema and Yes no calf tenderness Coding Level of Care Code Est Pt Level 4 (94543) Complex EM visit Add On G2211 Diagnoses Essential hypertension I10 Dyslipidemia E78.5 Acquired hypothyroidism E03.9 History of femur fracture Z87.81 Rheumatoid arthritis involving multiple sites, unspecified whether rheumatoid factor present M06.9 Rheumatoid arthritis location: multiple sites Rheumatoid factor presence: unspecified presence Assessment & Plan Assessment & Plan (1) Essential hypertension: Code(s): I10 - Essential (primary) hypertension Category: Medical Plan: Will continue on lisinopril 5 mg once a day (2) Dyslipidemia: Code(s): E78.5 - Hyperlipidemia, unspecified Category: Medical Plan: Fasting lipid panel ordered together with liver enzymes. Continue with current dose of lovastatin 20 mg daily (3) Acquired hypothyroidism: Code(s): E03.9 - Hypothyroidism, unspecified Category: Medical Plan: TSH and free T4 ordered, continued on current dose of levothyroxine 150 mcg once a day for 6 days a week (4) History of femur fracture: Code(s): Z87.81 - Personal history of (healed) traumatic fracture Category: Medical Plan: s/p ORIF done at [facility], has a follow-up appointment already scheduled, continued on physical therapy/OT at home takes Tylenol as needed for pain. (5) Rheumatoid arthritis: Code(s): M06.9 - Rheumatoid arthritis, unspecified Category: Medical Qualifiers: Rheumatoid arthritis location: multiple sites Rheumatoid factor presence: unspecified presence Qualified Code(s): M06.9 - Rheumatoid arthritis, unspecified Plan: Currently on methotrexate and Actemra Orders: Orders Vitamin D 25-OH Total 01/05/25 E03.9 - Hypothyroidism, unspecified, E78.5 - Hyperlipidemia, unspecified, I10 - Essential (primary) hypertension, R73.01 - Impaired fasting glucose, Z78.0 - Asymptomatic menopausal state Basic Metabolic Panel Fasting 01/05/25 E03.9 - Hypothyroidism, unspecified, E78.5 - Hyperlipidemia, unspecified, I10 - Essential (primary) hypertension, R73.01 - Impaired fasting glucose, Z78.0 - Asymptomatic menopausal state
[2025-01-05 12:18] VITALS: BP 142/82; PULSE 78; RESP 16; TEMP 36.5; O2SAT 97; BMI 33.7
--- OUTSIDE RECORDS SUMMARY | 2025-01-05 14:05 | XMS_ITS | Encounter Summary ---
Author Organization [facility] Address [address] [place] [address] Care Team Providers Care Laborer Concrete Paving Name Role Phone Doris Vázquez MD Primary Care Provider + Encounter Details Date Type Department Care Team (Late st Contact Info) Description 08/04/2024 Lab Requisition [facility] - Main Lab 299 [facility] [place] [address] Doris Vázquez MD [address] [address] Gastro-esophageal reflux disease with esophagitis, without bleeding; Essential (primary) hypertension Social History Tobacco Use Types Packs/Day Years Used Date Smoking Tobacco: Never Assessed Comments Unknown Sex and Gender Information Value Date Recorded Sex Assigned at Not on file Legal Sex Female 2:46 AM EST Gender Identity Not on file Sexual Orientation Not on file documented as of this encounter Plan of Treatment Not on file documented as of this encounter Procedures Procedure Name Priority Date/Time Associated Diagnosis Comments COMPLETE BLOOD COUNT Routine 08/05/2024 6:53 AM EST Gastro-esophageal reflux disease with esophagitis, without bleeding Essential (primary) hypertension BASIC METABOLIC PANEL Routine 08/05/2024 6:53 AM EST Gastro-esophageal reflux disease with esophagitis, without bleeding Essential (primary) hypertension documented in this encounter Results * Basic metabolic panel (08/05/2024 6:53 AM EST) Sodium 138 133 - 145 mmol/L LAB CHEMISTRY METHOD 08/05/2024 11:23 AM EST [facility] Potassium 3.7 3.5 - 5.5 mmol/L LAB CHEMISTRY METHOD 08/05/2024 11:[address] [facility] LAB Chloride 105 96 - 110 mmol/L LAB CHEMISTRY METHOD 08/05/2024 11:[address] [facility] CO2 25 21 - 32 mmol/L LAB CHEMISTRY METHOD 08/05/2024 11:[address] [facility] LAB Anion Gap 8 3 - 11 LAB CHEMISTRY METHOD 08/05/2024 11:[address] [facility] LAB Glucose 91 70 - 100 mg/dL LAB CHEMISTRY METHOD 08/05/2024 11:[address] [facility] BUN 10 5 - 25 mg/dL LAB CHEMISTRY METHOD 08/05/2024 11:[address] [facility] LAB Creatinine 0.71 0.50 - 1.10 mg/dL LAB CHEMISTRY METHOD 08/05/2024 11:[address] [facility] LAB eGFR 84 >=60 mL/min/1. 73m2 LAB CHEMISTRY METHOD 08/05/2024 11:[address] [facility] LAB Comment:Calculation based on the??Chronic Kidney Disease Epidemiology Collaboration (CKD-EPI) equation refit??without adjustment for race. BUN/Creatinine Ratio 14.1 LAB CHEMISTRY METHOD 08/05/2024 11:[address] [facility] LAB Calcium 9.2 8.5 - 10.5 mg/dL LAB CHEMISTRY METHOD 08/05/2024 11:[address] [facility] LAB Blood Venous blood specimen / Unknown Venipuncture / Unknown 08/05/2024 6:53 AM EST 08/05/2024 10:11 AM EST us Doris Vázquez MD LAB BLOOD ORDERABLES Fin al Result [facility] LAB [address] [place] [address], * (ABNORMAL) Complete blood count (08/05/2024 6:53 AM EST) WBC 6.8 4.8 - 10.8 K/mcL LAB HEMETOLOGY METHOD 08/05/2024 11:[address] [facility] LAB RBC 3.20(L) 3.80 - 4.80 M/mcL LAB HEMETOLOGY METHOD 08/05/2024 11:[address] [facility] LAB Hemoglobin 11.1(L) 11.5 - 16.0 g/dL LAB HEMETOLOGY METHOD 08/05/2024 11:[address] [facility] LAB Hematocrit 34.5(L) 35.0 - 47.0 % LAB HEMETOLOGY METHOD 08/05/2024 11:[address] [facility] LAB MCV 109.2(H) 79.0 - 98.0 FL LAB HEMETOLOGY METHOD 08/05/2024 11:[address] [facility] LAB MCH 35.1(H) 27.0 - 32.0 pcg LAB HEMETOLOGY METHOD 08/05/2024 11:[address] [facility] LAB MCHC 32.2 32.0 - 37.0 g/dL LAB HEMETOLOGY METHOD 08/05/2024 11:[address] [facility] LAB RDW 16.5(H) 11.0 - 15.0 % LAB HEMETOLOGY METHOD 08/05/2024 11:[address] [facility] LAB Platelets 158 130 - 400 K/mcL LAB HEMETOLOGY METHOD 08/05/2024 11:[address] [facility] LAB MPV 11.4(H) 7.0 - 11.0 FL LAB HEMETOLOGY METHOD 08/05/2024 11:[address] [facility] LAB NRBC 0.0 <1.0 % LAB HEMETOLOGY METHOD 08/05/2024 11:[address] [facility] LAB NRBC Absolute 0.00 <0.10 K/mcL LAB HEMETOLOGY METHOD 08/05/2024 11:[address] [facility] LAB Blood Venous blood specimen / Unknown Venipuncture / Unknown 08/05/2024 6:53 AM EST 08/05/2024 10:11 AM EST Doris Vázquez MD LAB BLOOD ORDERABLES Fin al Result [facility] ([facility] LAB [address] [place] [address], documented in this encounter Visit Diagnoses Diagnosis Gastro-esophageal reflux disease with esophagitis, without bleeding Essential (primary) hypertension Unspecified essential hypertension documented in this encounter Care Teams Laborer Concrete Paving Relationship Specialty Start Date End Date Doris Vázquez MD [address] [place] [id number] PCP - General Family Medicine 08/01/24 documented as of this encounter
--- OUTSIDE RECORDS SUMMARY | 2025-01-05 14:05 | XMS_ITS | Encounter Summary ---
Author Organization [facility] Address [address] [place] [address] Care Team Providers Care Assembler Knife Name Role Phone Doris Vázquez MD Primary Care Provider + Encounter Details Date Type Department Care Team (Late st Contact Info) Description 08/11/[address] [facility] - Main Lab 299 [facility] [place] [address] Doris Vázquez MD [address] [address] Gastro-esophageal reflux disease with esophagitis, [...] Associated Diagnosis Comments COMPLETE BLOOD COUNT Routine 08/12/2024 7:03 AM EST Gastro-esophageal reflux disease with esophagitis, without bleeding Essential (primary) hypertension BASIC METABOLIC PANEL Routine 08/12/2024 7:03 AM EST Gastro-esophageal reflux disease with esophagitis, without bleeding Essential (primary) hypertension documented in this encounter Results * Basic metabolic panel (08/12/2024 7:03 AM EST) Sodium 141 133 - 145 mmol/L LAB CHEMISTRY METHOD 08/12/2024 10:41 AM EST [facility] Potassium 4.0 3.5 - 5.5 mmol/L LAB CHEMISTRY METHOD 08/12/2024 10:41 AM [facility] LAB Chloride 107 96 - 110 mmol/L LAB CHEMISTRY METHOD 08/12/2024 10:41 AM [facility] LAB CO2 28 21 - 32 mmol/L LAB CHEMISTRY METHOD 08/12/2024 10:41 AM [facility] LAB Anion Gap 6 3 - 11 LAB CHEMISTRY METHOD 08/12/2024 10:41 AM [facility] LAB Glucose 92 70 - 100 mg/dL LAB CHEMISTRY METHOD 08/12/2024 10:41 AM [facility] LAB BUN 7 5 - 25 mg/dL LAB CHEMISTRY METHOD 08/12/2024 10:41 AM [facility] LAB Creatinine 0.62 0.50 - 1.10 mg/dL LAB CHEMISTRY METHOD 08/12/2024 10:41 AM [facility] LAB eGFR 88 >=60 mL/min/1. 73m2 LAB CHEMISTRY METHOD 08/12/2024 10:41 AM [facility] LAB Comment:Calculation based on the??Chronic Kidney Disease Epidemiology Collaboration (CKD-EPI) equation refit??without adjustment for race. BUN/Creatinine Ratio 11.3 LAB CHEMISTRY METHOD 08/12/2024 10:41 AM [facility] LAB Calcium 9.0 8.5 - 10.5 mg/dL LAB CHEMISTRY METHOD 08/12/2024 10:41 AM [facility] LAB Blood Venous blood specimen / Unknown Venipuncture / Unknown 08/12/2024 7:03 AM EST 08/12/2024 9:40 AM EST us Doris Vázquez MD LAB BLOOD ORDERABLES Fin al Result [facility] LAB 299 [place] [address], * (ABNORMAL) Complete blood count (08/12/2024 7:03 AM EST) WBC 5.9 4.8 - 10.8 K/mcL LAB HEMETOLOGY METHOD 08/12/2024 10:15 AM [facility] LAB RBC 2.90(L) 3.80 - 4.80 M/mcL LAB HEMETOLOGY METHOD 08/12/2024 10:15 AM [facility] LAB Hemoglobin 10.4(L) 11.5 - 16.0 g/dL LAB HEMETOLOGY METHOD 08/12/2024 10:15 AM [facility] LAB Hematocrit 32.3(L) 35.0 - 47.0 % LAB HEMETOLOGY METHOD 08/12/2024 10:15 AM [facility] LAB MCV 112.2(H) 79.0 - 98.0 FL LAB HEMETOLOGY METHOD 08/12/2024 10:15 AM [facility] LAB MCH 36.1(H) 27.0 - 32.0 pcg LAB HEMETOLOGY METHOD 08/12/2024 10:15 AM [facility] LAB MCHC 32.2 32.0 - 37.0 g/dL LAB HEMETOLOGY METHOD 08/12/2024 10:15 AM [facility] LAB RDW 15.5(H) 11.0 - 15.0 % LAB HEMETOLOGY METHOD 08/12/2024 10:15 AM [facility] LAB Platelets 150 130 - 400 K/mcL LAB HEMETOLOGY METHOD 08/12/2024 10:15 AM [facility] LAB MPV 11.4(H) 7.0 - 11.0 FL LAB HEMETOLOGY METHOD 08/12/2024 10:15 AM [facility] LAB NRBC 0.0 <1.0 % LAB HEMETOLOGY METHOD 08/12/2024 10:15 AM [facility] LAB NRBC Absolute 0.00 <0.10 K/mcL LAB HEMETOLOGY METHOD 08/12/2024 10:15 AM [facility] LAB Blood Venous blood specimen / Unknown Venipuncture / Unknown 08/12/2024 7:03 AM EST 08/12/2024 9:40 AM EST Doris Vázquez MD LAB BLOOD ORDERABLES Fin al Result [facility] ([facility]) [facility] LAB [address] [place] [address], documented in this encounter Visit Diagnoses Diagnosis Gastro-esophageal reflux disease with esophagitis, without bleeding Essential (primary) hypertension Unspecified essential hypertension documented in this encounter Care Teams Assembler Knife Relationship Specialty Start Date End Date Doris Vázquez MD [address] [place] [phone] PCP - General Family Medicine 08/01/24 documented as of this encounter
--- OUTSIDE RECORDS SUMMARY | 2025-01-05 14:05 | XMS_ITS | Encounter Summary ---
Author Organization [facility] Address [address] [place] [address] Care Team Providers Care Escalator Constructor Name Role Phone Doris Vázquez MD Primary Care Provider + Encounter Details Date Type Department Care Team (Late st Contact Info) Description 08/13/2024 Lab Requisition [facility] - Main Lab [address] [place] [address] Doris Vázquez MD [address] [phone] Encounter for therapeutic drug level monitoring; Gastro-esophageal reflux disease with esophagitis, without bleeding; [...] Associated Diagnosis Comments COMPLETE BLOOD COUNT Routine 08/16/2024 7:25 AM EST Encounter for therapeutic drug level monitoring Gastro-esophageal reflux disease with esophagitis, without bleeding Essential (primary) hypertension COMPREHENSIVE METABOLIC PANEL Routine 08/16/2024 7:25 AM EST Encounter for therapeutic drug level monitoring Gastro-esophageal reflux disease with esophagitis, without bleeding Essential (primary) hypertension documented in this encounter Results * Comprehensive metabolic panel (08/16/2024 7:25 AM EST) Sodium 141 133 - 145 mmol/L LAB CHEMISTRY METHOD 08/16/2024 3:59 PM EST [facility] Potassium 4.1 3.5 - 5.5 mmol/L LAB CHEMISTRY METHOD 08/16/2024 3:59 PM [facility] LAB Chloride 107 96 - 110 mmol/L LAB CHEMISTRY METHOD 08/16/2024 3:59 PM [facility] LAB CO2 27 21 - 32 mmol/L LAB CHEMISTRY METHOD 08/16/2024 3:59 PM [facility] LAB Anion Gap 7 3 - 11 LAB CHEMISTRY METHOD 08/16/2024 3:59 PM [facility] LAB Glucose 84 70 - 100 mg/dL LAB CHEMISTRY METHOD 08/16/2024 3:59 PM [facility] LAB BUN 9 5 - 25 mg/dL LAB CHEMISTRY METHOD 08/16/2024 3:59 PM [facility] LAB Creatinine 0.56 0.50 - 1.10 mg/dL LAB CHEMISTRY METHOD 08/16/2024 3:59 PM [facility] LAB eGFR 90 >=60 mL/min/1. 73m2 LAB CHEMISTRY METHOD 08/16/2024 3:59 PM [facility] LAB Comment:Calculation based on the??Chronic Kidney Disease Epidemiology Collaboration (CKD-EPI) equation refit??without adjustment for race. BUN/Creatinine Ratio 16.1 LAB CHEMISTRY METHOD 08/16/2024 3:59 PM [facility] LAB Calcium 9.1 8.5 - 10.5 mg/dL LAB CHEMISTRY METHOD 08/16/2024 3:59 PM [facility] LAB AST (SGOT) 12 10 - 42 unit/L LAB CHEMISTRY METHOD 08/16/2024 3:59 PM [facility] LAB ALT (SGPT) 14 10 - 60 unit/L LAB CHEMISTRY METHOD 08/16/2024 3:59 PM [facility] LAB Alkaline Phosphatase 70 42 - 121 unit/L LAB CHEMISTRY METHOD 08/16/2024 3:59 PM [facility] LAB Total Protein 6.0 6.0 - 8.0 g/dL LAB CHEMISTRY METHOD 08/16/2024 3:59 PM EST [facility] LAB Albumin 3.2 3.2 - 5.0 g/dL LAB CHEMISTRY METHOD 08/16/2024 3:59 PM EST [facility] LAB Total Bilirubin 0.3 0.0 - 1.4 mg/dL LAB CHEMISTRY METHOD 08/16/2024 3:59 PM [facility] LAB Blood Venous blood specimen / Unknown Venipuncture / Unknown 08/16/2024 7:25 AM EST 08/16/2024 11:46 AM EST us Doris Vázquez MD LAB BLOOD ORDERABLES Fin al Result [facility] LAB [address] [place] [address], * (ABNORMAL) Complete blood count (08/16/2024 7:25 AM EST) WBC 5.3 4.8 - 10.8 K/mcL LAB HEMETOLOGY METHOD 08/16/2024 1:30 PM [facility] LAB RBC 2.90(L) 3.80 - 4.80 M/[facility] LAB HEMETOLOGY METHOD 08/16/2024 1:30 PM [facility] LAB Hemoglobin 10.2(L) 11.5 - 16.0 g/dL LAB HEMETOLOGY METHOD 08/16/2024 1:30 PM [facility] LAB Hematocrit 32.5(L) 35.0 - 47.0 % LAB HEMETOLOGY METHOD 08/16/2024 1:30 PM [facility] LAB MCV 111.7(H) 79.0 - 98.0 FL LAB HEMETOLOGY METHOD 08/16/2024 1:30 PM [facility] LAB MCH 35.1(H) 27.0 - 32.0 pcg LAB HEMETOLOGY METHOD 08/16/2024 1:30 PM [facility] LAB MCHC 31.4(L) 32.0 - 37.0 g/dL LAB HEMETOLOGY METHOD 08/16/2024 1:30 PM EST [facility] LAB RDW 15.0 11.0 - 15.0 % LAB HEMETOLOGY METHOD 08/16/2024 1:30 PM [facility] LAB Platelets 177 130 - 400 K/mcL LAB HEMETOLOGY METHOD 08/16/2024 1:30 PM [facility] LAB MPV 11.1(H) 7.0 - 11.0 FL LAB HEMETOLOGY METHOD 08/16/2024 1:30 PM EST [facility] LAB NRBC 0.0 <1.0 % LAB HEMETOLOGY METHOD 08/16/2024 1:30 PM [facility] LAB NRBC Absolute 0.00 <0.10 K/mcL LAB HEMETOLOGY METHOD 08/16/2024 1:30 PM [facility] LAB Blood Venous blood specimen / Unknown Venipuncture / Unknown 08/16/2024 7:25 AM EST 08/16/2024 11:45 AM EST us Doris Vázquez MD LAB BLOOD ORDERABLES Fin al Result [facility] LAB [address] [place] [address], documented in this encounter Visit Diagnoses Diagnosis Encounter for therapeutic drug level monitoring Gastro-esophageal reflux disease with esophagitis, without bleeding Essential (primary) hypertension Unspecified essential hypertension documented in this encounter Care Teams Escalator Constructor Relationship Specialty Start Date End Date Doris Vázquez MD [address] [place] [id number] PCP - General Family Medicine 08/01/24 documented as of this encounter
--- OUTSIDE RECORDS SUMMARY | 2025-01-05 14:05 | XMS_ITS | Encounter Summary ---
Author Organization [facility] Address [address] [place] [address] Care Team Providers Care Cloth Weigher Name Role Phone Doris Vázquez MD Primary Care Provider + Encounter Details Date Type Department Care Team (Late st Contact Info) Description 08/18/[address] [facility] - Main Lab 299 [facility] [place] [address] Doris Vázquez MD [address] [address] Gastro-esophageal reflux disease with esophagitis, [...] Associated Diagnosis Comments COMPLETE BLOOD COUNT Routine 08/20/2024 6:56 AM EST Gastro-esophageal reflux disease with esophagitis, without bleeding Essential (primary) hypertension BASIC METABOLIC PANEL Routine 08/20/2024 6:56 AM EST Gastro-esophageal reflux disease with esophagitis, without bleeding Essential (primary) hypertension documented in this encounter Results * Basic metabolic panel (08/20/2024 6:56 AM EST) Sodium 140 133 - 145 mmol/L LAB CHEMISTRY METHOD 08/20/2024 11:02 AM EST [facility] ([facility] LAB Potassium 4.2 3.5 - 5.5 mmol/L LAB CHEMISTRY METHOD 08/20/2024 11:02 AM [facility] LAB Chloride 106 96 - 110 mmol/L LAB CHEMISTRY METHOD 08/20/2024 11:02 AM [facility] LAB CO2 28 21 - 32 mmol/L LAB CHEMISTRY METHOD 08/20/2024 11:02 AM [facility] LAB Anion Gap 6 3 - 11 LAB CHEMISTRY METHOD 08/20/2024 11:02 AM [facility] LAB Glucose 89 70 - 100 mg/dL LAB CHEMISTRY METHOD 08/20/2024 11:02 AM [facility] LAB BUN 9 5 - 25 mg/dL LAB CHEMISTRY METHOD 08/20/2024 11:02 AM [facility] LAB Creatinine 0.56 0.50 - 1.10 mg/dL LAB CHEMISTRY METHOD 08/20/2024 11:02 AM [facility] LAB eGFR 90 >=60 mL/min/1. 73m2 LAB CHEMISTRY METHOD 08/20/2024 11:02 AM [facility] LAB Comment:Calculation based on the??Chronic Kidney Disease Epidemiology Collaboration (CKD-EPI) equation refit??without adjustment for race. BUN/Creatinine Ratio 16.1 LAB CHEMISTRY METHOD 08/20/2024 11:02 AM [facility] LAB Calcium 9.1 8.5 - 10.5 mg/dL LAB CHEMISTRY METHOD 08/20/2024 11:02 AM [facility] LAB Blood Venous blood specimen / Unknown Venipuncture / Unknown 08/20/2024 6:56 AM EST 08/20/2024 9:56 AM EST us Doris Vázquez MD LAB BLOOD ORDERABLES Fin al Result [facility] LAB [address] [place] [address], * (ABNORMAL) Complete blood count (08/20/2024 6:56 AM EST) WBC 5.7 4.8 - 10.8 K/mcL LAB HEMETOLOGY METHOD 08/20/2024 10:38 AM [facility] LAB RBC 2.80(L) 3.80 - 4.80 M/[facility] LAB HEMETOLOGY METHOD 08/20/2024 10:38 AM [facility] LAB Hemoglobin 9.7(L) 11.5 - 16.0 g/dL LAB HEMETOLOGY METHOD 08/20/2024 10:38 AM [facility] LAB Hematocrit 30.3(L) 35.0 - 47.0 % LAB HEMETOLOGY METHOD 08/20/2024 10:38 AM [facility] LAB MCV 110.2(H) 79.0 - 98.0 FL LAB HEMETOLOGY METHOD 08/20/2024 10:38 AM [facility] LAB MCH 35.3(H) 27.0 - 32.0 pcg LAB HEMETOLOGY METHOD 08/20/2024 10:38 AM [facility] LAB MCHC 32.0 32.0 - 37.0 g/dL LAB HEMETOLOGY METHOD 08/20/2024 10:38 AM [facility] LAB RDW 14.4 11.0 - 15.0 % LAB HEMETOLOGY METHOD 08/20/2024 10:38 AM [facility] LAB Platelets 200 130 - 400 K/mcL LAB HEMETOLOGY METHOD 08/20/2024 10:38 AM [facility] LAB MPV 10.5 7.0 - 11.0 FL LAB HEMETOLOGY METHOD 08/20/2024 10:38 AM [facility] LAB NRBC 0.0 <1.0 % LAB HEMETOLOGY METHOD 08/20/2024 10:38 AM [facility] LAB NRBC Absolute 0.00 <0.10 K/mcL LAB HEMETOLOGY METHOD 08/20/2024 10:38 AM EST [facility] Blood Venous blood specimen / Unknown Venipuncture / Unknown 08/20/2024 6:56 AM EST 08/20/2024 9:56 AM EST Doris Vázquez MD LAB BLOOD ORDERABLES Fin al Result [facility] ([facility]) [facility] LAB [address] [place] [address], documented in this encounter Visit Diagnoses Diagnosis Gastro-esophageal reflux disease with esophagitis, without bleeding Essential (primary) hypertension Unspecified essential hypertension documented in this encounter Care Teams Cloth Weigher Relationship Specialty Start Date End Date Doris Vázquez MD [address] [place] [phone] PCP - General Family Medicine 08/01/24 documented as of this encounter
--- OUTSIDE RECORDS SUMMARY | 2025-01-05 14:05 | XMS_ITS | Encounter Summary ---
Author Organization [facility] Address [address] [place] [address] Care Team Providers Care Global Consumer Sector Vice President Name Role Phone Doris Vázquez MD Primary Care Provider + Encounter Details Date Type Department Care Team (Late st Contact Info) Description 08/06/2024 Lab Requisition [facility] - Main Lab 299 [facility] [place] [address] Doris Vázquez MD [address] [address] Gastro-esophageal reflux disease with esophagitis, [...] Associated Diagnosis Comments COMPLETE BLOOD COUNT Routine 08/09/2024 6:59 AM EST Gastro-esophageal reflux disease with esophagitis, without bleeding Essential (primary) hypertension BASIC METABOLIC PANEL Routine 08/09/2024 6:59 AM EST Gastro-esophageal reflux disease with esophagitis, without bleeding Essential (primary) hypertension documented in this encounter Results * Basic metabolic panel (08/09/2024 6:59 AM EST) Sodium 140 133 - 145 mmol/L LAB CHEMISTRY METHOD 08/09/2024 12:51 PM EST [facility] LAB Potassium 3.7 3.5 - 5.5 mmol/L LAB CHEMISTRY METHOD 08/09/2024 12:51 PM [facility] LAB Chloride 106 96 - 110 mmol/L LAB CHEMISTRY METHOD 08/09/2024 12:51 PM [facility] LAB CO2 24 21 - 32 mmol/L LAB CHEMISTRY METHOD 08/09/2024 12:51 PM [facility] LAB Anion Gap 10 3 - 11 LAB CHEMISTRY METHOD 08/09/2024 12:51 PM [facility] LAB Glucose 88 70 - 100 mg/dL LAB CHEMISTRY METHOD 08/09/2024 12:51 PM [facility] LAB BUN 9 5 - 25 mg/dL LAB CHEMISTRY METHOD 08/09/2024 12:51 PM [facility] LAB Creatinine 0.57 0.50 - 1.10 mg/dL LAB CHEMISTRY METHOD 08/09/2024 12:51 PM [facility] LAB eGFR 90 >=60 mL/min/1. 73m2 LAB CHEMISTRY METHOD 08/09/2024 12:51 PM [facility] LAB Comment:Calculation based on the??Chronic Kidney Disease Epidemiology Collaboration (CKD-EPI) equation refit??without adjustment for race. BUN/Creatinine Ratio 15.8 LAB CHEMISTRY METHOD 08/09/2024 12:51 PM [facility] LAB Calcium 9.3 8.5 - 10.5 mg/dL LAB CHEMISTRY METHOD 08/09/2024 12:51 PM [facility] LAB Blood Venous blood specimen / Unknown Venipuncture / Unknown 08/09/2024 6:59 AM EST 08/09/2024 11:06 AM EST us Doris Vázquez MD LAB BLOOD ORDERABLES Fin al Result [facility] LAB [address] [place] [address], * (ABNORMAL) Complete blood count (08/09/2024 6:59 AM EST) WBC 4.5(L) 4.8 - 10.8 K/mcL LAB HEMETOLOGY METHOD 08/09/2024 12:54 PM [facility] LAB RBC 3.30(L) 3.80 - 4.80 M/mcL LAB HEMETOLOGY METHOD 08/09/2024 12:54 PM [facility] LAB Hemoglobin 11.5 11.5 - 16.0 g/dL LAB HEMETOLOGY METHOD 08/09/2024 12:54 PM [facility] LAB Hematocrit 36.5 35.0 - 47.0 % LAB HEMETOLOGY METHOD 08/09/2024 12:54 PM [facility] LAB MCV 112.0(H) 79.0 - 98.0 FL LAB HEMETOLOGY METHOD 08/09/2024 12:54 PM [facility] LAB MCH 35.3(H) 27.0 - 32.0 pcg LAB HEMETOLOGY METHOD 08/09/2024 12:54 PM [facility] LAB MCHC 31.5(L) 32.0 - 37.0 g/dL LAB HEMETOLOGY METHOD 08/09/2024 12:54 PM [facility] LAB RDW 15.9(H) 11.0 - 15.0 % LAB HEMETOLOGY METHOD 08/09/2024 12:54 PM [facility] LAB Platelets 141 130 - 400 K/[facility] LAB HEMETOLOGY METHOD 08/09/2024 12:54 PM [facility] LAB MPV 11.5(H) 7.0 - 11.0 FL LAB HEMETOLOGY METHOD 08/09/2024 12:54 PM [facility] LAB NRBC 0.0 <1.0 % LAB HEMETOLOGY METHOD 08/09/2024 12:54 PM [facility] LAB NRBC Absolute 0.00 <0.10 K/[facility] LAB HEMETOLOGY METHOD 08/09/2024 12:54 PM [facility] LAB Blood Venous blood specimen / Unknown Venipuncture / Unknown 08/09/2024 6:59 AM EST 08/09/2024 11:06 AM EST Doris Vázquez MD LAB BLOOD ORDERABLES Fin al Result [facility] ([facility]) [facility] LAB [address] [place] [address], documented in this encounter Visit Diagnoses Diagnosis Gastro-esophageal reflux disease with esophagitis, without bleeding Essential (primary) hypertension Unspecified essential hypertension documented in this encounter Care Teams Global Consumer Sector Vice President Relationship Specialty Start Date End Date Doris Vázquez MD [address] [place] [phone] PCP - General Family Medicine 08/01/24 documented as of this encounter
--- OUTSIDE RECORDS SUMMARY | 2025-01-05 14:05 | XMS_ITS ---
Author Organization [facility] Address [address] [place] [address] Care Team Providers Care Thoracic Medicine Specialist Name Role Phone Kaiden GORDON, Amaya Walton Primary Care Provider Un available Black, Adore Unavailable [phone] REASON FOR VISIT 08/05/24 appt Encounters En[facility] [address] [facility]/04[facility] Adore Black Plan Of Treatment No Information Progress Notes * Doris LEIGH FDOB:1940 ([age] yo F)Acc No.[id number]:08/04/2024 Patient:?Doris LEIGH :1940???Age:84 Y???Sex:Female Address:[address] [facility], [place], [address] * true * Date:? Generated for Printi debbie/Demi/eTransmitting on:?01/05/2025 02:05 PM EDT
--- OUTSIDE RECORDS SUMMARY | 2025-01-05 14:06 | XMS_ITS | Encounter Summary ---
Author Organization [facility] Address [address] [place] [address] Care Team Providers Care Television Cameraman Name Role Phone Doris Vázquez MD Primary Care Provider + Encounter Details Date Type Department Care Team (Late st Contact Info) Description 09/01/2024 Lab Requisition [facility] - Main Lab [address] [place] [address] Doris Vázquez MD [address] [address] Gastro-esophageal reflux disease with esophagitis, [...] Associated Diagnosis Comments COMPLETE BLOOD COUNT Routine 09/02/2024 6:38 AM EST Gastro-esophageal reflux disease with esophagitis, without bleeding Essential (primary) hypertension BASIC METABOLIC PANEL Routine 09/02/2024 6:38 AM EST Gastro-esophageal reflux disease with esophagitis, without bleeding Essential (primary) hypertension documented in this encounter Results * (ABNORMAL) Basic metabolic panel (09/02/2024 6:38 AM EST) Sodium 140 133 - 145 mmol/L LAB CHEMISTRY METHOD 09/02/2024 10:17 AM EST [facility] Potassium 4.0 3.5 - 5.5 mmol/L LAB CHEMISTRY METHOD 09/02/2024 10:17 AM [facility] Chloride 107 96 - 110 mmol/L LAB CHEMISTRY METHOD 09/02/2024 10:17 AM [facility] CO2 30 21 - 32 mmol/L LAB CHEMISTRY METHOD 09/02/2024 10:17 AM [facility] Anion Gap 3 3 - 11 LAB CHEMISTRY METHOD 09/02/2024 10:17 AM [facility] Glucose 75 70 - 100 mg/dL LAB CHEMISTRY METHOD 09/02/2024 10:17 AM [facility] BUN 11 5 - 25 mg/dL LAB CHEMISTRY METHOD 09/02/2024 10:17 AM [facility] Creatinine 0.64 0.50 - 1.10 mg/dL LAB CHEMISTRY METHOD 09/02/2024 10:17 AM [facility] eGFR 87 >=60 mL/min/1. 73m2 LAB CHEMISTRY METHOD 09/02/2024 10:17 AM [facility] Comment:Calculation based on the??Chronic Kidney Disease Epidemiology Collaboration (CKD-EPI) equation refit??without adjustment for race. BUN/Creatinine Ratio 17.2 LAB CHEMISTRY METHOD 09/02/2024 10:17 AM [facility] Calcium 8.4(L) 8.5 - 10.5 mg/dL LAB CHEMISTRY METHOD 09/02/2024 10:17 AM [facility] Blood Venous blood specimen / Unknown Venipuncture / Unknown 09/02/2024 6:38 AM EST 09/02/2024 9:22 AM EST us Doris Vázquez MD LAB BLOOD ORDERABLES Fin al Result [facility] [address] [place] [address], * (ABNORMAL) Complete blood count (09/02/2024 6:38 AM EST) WBC 7.5 4.8 - 10.8 K/mcL LAB HEMETOLOGY METHOD 09/02/2024 9:48 AM [facility] RBC 3.10(L) 3.80 - 4.80 M/[facility] LAB HEMETOLOGY METHOD 09/02/2024 9:48 AM [facility] Hemoglobin 10.5(L) 11.5 - 16.0 g/dL LAB HEMETOLOGY METHOD 09/02/2024 9:48 AM [facility] Hematocrit 33.4(L) 35.0 - 47.0 % LAB HEMETOLOGY METHOD 09/02/2024 9:48 AM [facility] MCV 107.1(H) 79.0 - 98.0 FL LAB HEMETOLOGY METHOD 09/02/2024 9:48 AM [facility] MCH 33.7(H) 27.0 - 32.0 pcg LAB HEMETOLOGY METHOD 09/02/2024 9:48 AM [facility] MCHC 31.4(L) 32.0 - 37.0 g/dL LAB HEMETOLOGY METHOD 09/02/2024 9:48 AM [facility] RDW 14.4 11.0 - 15.0 % LAB HEMETOLOGY METHOD 09/02/2024 9:48 AM [facility] Platelets 352 130 - 400 K/[facility] LAB HEMETOLOGY METHOD 09/02/2024 9:48 AM [facility] MPV 9.4 7.0 - 11.0 FL LAB HEMETOLOGY METHOD 09/02/2024 9:48 AM [facility] NRBC 0.0 <1.0 % LAB HEMETOLOGY METHOD 09/02/2024 9:48 AM [facility] NRBC Absolute 0.00 <0.10 K/mcL LAB HEMETOLOGY METHOD 09/02/2024 9:48 AM EST [facility] Blood Venous blood specimen / Unknown Venipuncture / Unknown 09/02/2024 6:38 AM EST 09/02/2024 9:22 AM EST us Doris Vázquez MD LAB BLOOD ORDERABLES Fin al Result [facility] [address] [place] [address], documented in this encounter Visit Diagnoses Diagnosis Gastro-esophageal reflux disease with esophagitis, without bleeding Essential (primary) hypertension Unspecified essential hypertension documented in this encounter Care Teams Television Cameraman Relationship Specialty Start Date End Date Doris Vázquez MD [address] [place] [address] PCP - General Family Medicine 08/01/24 documented as of this encounter
--- OUTSIDE RECORDS SUMMARY | 2025-01-05 14:06 | XMS_ITS ---
Author Organization [facility] Address [address] [place] [address] Care Team Providers Care It Project Lead Name Role Phone Kaiden GORDON, Amaya Walton Primary Care Provider Un available Adore Marks [phone] Encounters Encounter Location Date Provider Diagnosis [facility] [address] [place] [address] 08/05/2024 Adore Marks Plan Of Treatment No Information Progress Notes * Doris LEIGH FDOB:1940 ([age] yo F)Acc No.[id number]:08/05/2024 Progress Note Patient:?Doris LEIGH Provider:?Adore Marks DPM :1940???Age:84 Y???Sex:Female D ate:08/05/2024 Address:[address] [place], [place] [id number] Pcp:Asher Jenkins Subjective: * Chief Complaints: * ??? * Medical History:? Objective: * Vitals:? Assessment: Plan: * Treatment: * Images: * The named appointment provid er may or may not be the originator of this progress note, and it is not deemed complete until electronically signed by the appointment provider. Sign off status: Pending * Provider:?Adore Marks DPM Date:?2023 Generated for Printi debbie/Facuongg/eTransmitting on:?01/05/2025 02:06 PM EDT
--- OUTSIDE RECORDS SUMMARY | 2025-01-05 14:06 | XMS_ITS | Patient Health Record ---
[facility] Address [address] [place] [address] Care Team Providers Care Helmet Hat Sweatband Puncher Name Role Phone Kaiden GORDON, Amaya Walton Primary Care Provider Un available Black Adore Unavailable [phone] Allergies Allergen (clinical drug ingredient) Drug/Non Drug Allergy documented on EMR Reaction Allergy Type Onset Date Status amoxicillin Amoxicillin rash Drug Allergy Act lurdes aspirin Aspirin bleeding ulcer Drug Allergy Ac tive Reason For Referral No Information Medications Medication SIG (Take, Route, Frequency, Duration) Notes Start Date End Date Status Viactiv Active Bilberry Active Doxycycline Hyclate 100 MG 1 capsule Ora lly Once a day for 5 days 01/19/2024 Not-Taking predniSONE 5 MG 1 tablet Orally Once a day prn Not-Taking Lovastatin Active Methotrexate 10 ml A ctive Synthroid six days per week Ac tive Tylenol Arthritis Pain Active Ciclopirox Olamine 0.77 % 1 application to affected area Externally Twice a day for 30 days PRN 02/26/2019 Not-Taking Doxycycline Hyclate 100 MG 1 capsule Ora lly Once a day for 10 day(s) 12/23/2022 Not-Taking Simponi Not-Taking Glucosamine Not-Taki ng Nabumetone 500 MG 1 tablet Orally Twic e a day Active Remicade Not-Taking Levothyroxine Sodium Active Salsalate 5 tablets Not-Taking Multivitamin Active Orencia Not-Taking Diclofenac cream Not-Takin g traMADol HCl Not-Jose ing Zofran Not-Taking Ciclopirox Olamine 0.77% external Apply to effected areas twice a day for 30 days 05/04/2015 Not-Taking Actemra 80 MG/4ML as directed Intravenous Active Enbrel Not-Taking LEVOleucovorin Calcium Active Lisinopril 10 MG 1 tablet Orally Once a day for 30 day(s) Active Immunizations Vaccine Route Administration Date Status Comme nts COVID-19 Pfizer BioNTech Vaccine Unknown 06/20/2021 Administered 1st 11/05/2020 2nd 11/26/2020 Influenza Unknown 06/06/2021 Administered Social History Tobacco Use: Social History Observation Description Date Details (start date - stop date) Never Smoker NA - NA Tobacco Use/Smoking Question Answer Notes Are you a: nonsmoker Additional Findings: Tobacco Non-User Current no n-smoker Alcohol Screen Question Answer Notes Did you have a drink containing alcohol in the p ast year? No Points 0 Interpretation Negative Tobacco use other than smoking: Question Answer Notes Are you an other tobacco user? No Problems Problem Type SNOMED Code ICD Code Onset Dates Problem Status W/U Status Risk Notes Problem Ulcer of toe (116630639) Non-pressure chronic ulcer of other part of left foot limited to breakdown of skin (L97.521) Active confirmed Response to treatment - Improvement Problem Non-pressure ulcer lower limb (562421306) Non-pressure chronic ulcer of other part of left foot limited to breakdown of skin (L97.521) Active confirmed Problem Ulcer of foot (66206805) Non-pressure chronic ulcer of other part of right foot limited to breakdown of skin (L97.511) Active confirmed Problem Acquired hammer toe of left foot (2273151338672873) Other hammer toe(s) (acquired), left foot (M20.42) Active confirmed Problem 27444871 Rheumatoid arthritis (M06.9) Active confirmed Problem 069703424 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 Problem Acquired deformity of right foot (17901369965474912) PlantarFlexion of metatarsal of right foot (M21.6X1) Active confirmed Problem Acquired deformity of left foot (81246859553217968) PlantarFlexion of metatarsal of left foot (M21.6X2) Active confirmed Problem Pressure injury of left foot stage I (disorder) (833221045491552) Pressure injury of left foot, stage 1 (L89.891) Active confirmed Response to treatment - Improvement Problem 16056460477614885 Skin ulcer of toe of left foot, limited to breakdown of skin (L97.521) Active confirmed Problem Skin ulcer of toe of right foot with fat layer exposed (L97.512) Active confirmed Problem Skin ulcer of toe of left foot with fat layer exposed (L97.522) Active confirmed worse Problem Pressure injury of right foot stage I (disorder) (905701235115312) Pressure injury of right foot, stage 1 (L89.891) Active confirmed Response to treatment Vital Signs Blood pressure diastolic 75 mm Hg 06/03/2024 Height 5 ft 2 in in 06/03/2024 Blood pressure systolic 135 mm Hg 06/03/2024 Weight 200 lbs 06/03/2024 BMI 36.58 kg/m2 06/03/2024 Procedures Procedure Date Ordered Date Performed Result Body Sit e 78258-IGHPBXN NAIL, OR MORE 01/19/2024 N/A 15112-OKIGJWP SKIN/TISSUE 01/19/2024 N/A 55978- Debride <25 sq cm 02/02/2024 N/A 23924-OLRTDQA NAIL, 6 OR MORE 04/01/2024 N/A 73737-PYFEEYQ NAIL, 6 OR MORE 06/03/2024 N/A 21746- Debride <25 sq cm 06/03/2024 N/A Encounters Encounter Location Date Provider Diagnosis [address] [address] 01/19/2024 Adore Black Skin ulcer of toe of left foot with fat layer exposed L97.522 ; Cellulitis of foot L03.119 ; Tinea unguium B35.1 ; Pain in right toe(s) M79.674 and Pain in left toe(s) M79.[address] [address] 02/02/2024 Adore Black Pressure injury of left foot, stage [address] [address] 04/01/2024 Adore Black Pressure injury of left foot, stage 1 L89.891 ; Tinea unguium B35.1 ; Pain in right toe(s) M79.674 and Pain in left toe(s) M79.675 [facility] [address] [place] [address] 06/03/2024 Adore Marks Tinea unguium B35.1 ; Pain in right toe(s) M79.674 ; Pain in left toe(s) M79.675 and Skin ulcer of toe of left foot, limited to breakdown of skin L97.521 [facility] [address] [place] [address] 04/01/2024 Adore Marks [facility] [address] [address] 06/03/2024 Adorejono Marks [facility] [place] [address] [facility] [address] [place] [address] 08/04/2024 Adore Marks Assessments Encounter Date Diagnosis (ICD Code) Assessment Notes Treatment Notes Treatment Clinical Notes Section Notes 01/19/2024 Cellulitis of foot (ICD-10 - L03.119) 01/19/2024 Skin ulcer of toe of left foot with fat layer exposed (ICD-10 - L97.522) worse Patient Educated with: WOUND CARE INSTRUCTIONS.p df (WOUND CARE INSTRUCTIONS.p df) 02/02/2024 Pressure injury of left foot, stage 1 (ICD-10 - L89.891) Response to treatment - Improvement Patient Educated with: WOUND CARE INSTRUCTIONS.p df (WOUND CARE INSTRUCTIONS.p df) 04/01/2024 Tinea unguium (ICD-10 - B35.1) 04/01/2024 Pressure injury of left foot, stage 1 (ICD-10 - L89.891) Response to treatment - Improvement 06/03/2024 Tinea unguium (ICD-10 - B35.1) 06/03/2024 Pain in right toe(s) (ICD-10 - M79.674) 06/03/2024 Pain in left toe(s) (ICD-10 - M79.675) 04/01/2024 Pain in right toe(s) (ICD-10 - M79.674) 01/19/2024 Tinea unguium (ICD-10 - B35.1) 01/19/2024 Pain in right toe(s) (ICD-10 - M79.674) 04/01/2024 Pain in left toe(s) (ICD-10 - M79.675) 06/03/2024 Skin ulcer of toe of left foot, limited to breakdown of skin (ICD-10 - L97.521) 01/19/2024 Pain in left toe(s) (ICD-10 - M79.675) 01/19/2024 Other 04/01/2024 Other Plan Of Treatment Pending Test Test Name Order Date X ray : Foot, left 2V 08/12/2011 00557-RCMZXMM NAIL, 6 OR MORE 03/18/2013 59637-HDEACZZ NAIL, 6 OR MORE 06/16/2013 20279-XHZKGBD NAIL, 6 OR MORE 08/26/2013 04712-QIFDZLY NAIL, 6 OR MORE 01/17/2014 08864-BRGVNAO NAIL, 6 OR MORE 11/01/2013 18536-HKDFKQR NAIL, 6 OR MORE 04/14/2014 76890-VFZPVXA NAIL, 6 OR MORE 06/22/2014 55089-HMLHKVA NAIL, 6 OR MORE 08/25/2014 74825-ZPPBWNM NAIL, 6 OR MORE 11/02/2014 57195-AMNHMLC NAIL, 6 OR MORE 01/11/2015 35001-OBHHNYI NAIL, 6 OR MORE 03/22/2015 71470-MHKWQII NAIL, 6 OR MORE 08/09/2015 46880-YYNMIZP NAIL, 6 OR MORE 12/20/2015 57567-PGOOYXO NAIL, 6 OR MORE 02/26/2016 61601-CXSBZZV NAIL, 6 OR MORE 05/13/2016 45101-SBVPBUJ NAIL, 6 OR MORE 07/15/2016 19885-CLVVQDP NAIL, 6 OR MORE 09/26/2016 88954-ZAIKVHK NAIL, 6 OR MORE 11/28/2016 98812-WDGSLTH NAIL, 6 OR MORE 02/03/2017 63519-HEOJVTS NAIL, 6 OR MORE 04/03/2017 92187-NCEQFNM NAIL, 6 OR MORE 06/05/2017 05707-FNVYQDA NAIL, 6 OR MORE 08/07/2017 17534-MLRVYNK NAIL, 6 OR MORE 10/09/2017 39797-YKIXVAM NAIL, 6 OR MORE 12/15/2017 45832-NPZXLFW NAIL, 6 OR MORE 02/19/2018 82731-INGOXYW NAIL, 6 OR MORE 04/23/2018 87593-IJMSUQW NAIL, 6 OR MORE 06/25/2018 87082-MDOYYRJ NAIL, 6 OR MORE 08/27/2018 03316-RXWEWDG NAIL, 6 OR MORE 10/29/2018 94113-UKSQIHK NAIL, 6 OR MORE 01/07/2019 42967-GKJWMHX NAIL, 6 OR MORE 03/11/2019 78128-ZHNIDLZ NAIL, 6 OR MORE 05/20/2019 46819-VNFOEET NAIL, 6 OR MORE 07/22/2019 74986-GXCOGID NAIL, 6 OR MORE 09/23/2019 61001-ICBDENO NAIL, 6 OR MORE 11/25/2019 86836-BEBJULZ NAIL, 6 OR MORE 02/03/2020 24132-PBOIQOQ NAIL, 6 OR MORE 04/06/2020 90561-SVNDDIE NAIL, 6 OR MORE 06/08/2020 46130-COJTFFN NAIL, 6 OR MORE 08/10/2020 20411-IODJHMJ NAIL, 6 OR MORE 10/12/2020 33465-RTXNRAQ NAIL, 6 OR MORE 12/14/2020 37395-AQSERUE NAIL, 6 OR MORE 02/22/2021 08575-IPJUSNU NAIL, 6 OR MORE 04/30/2021 34910-TRBNPCC NAIL, 6 OR MORE 07/05/2021 58391-DGFPLQO NAIL, 6 OR MORE 09/06/2021 76075-GWMXYPT NAIL, 6 OR MORE 12/03/2021 29970-MXZJMYP NAIL, 6 OR MORE 02/04/2022 82928-MZXJUPA NAIL, 6 OR MORE 04/08/2022 89766-RRJKSGR NAIL, 6 OR MORE 06/10/2022 15698-KZYSLWH NAIL, 6 OR MORE 08/12/2022 25106-RWZPBOZ NAIL, 6 OR MORE 10/17/2022 02621-AGQVZAQ NAIL, 6 OR MORE 12/23/2022 48890-IHWILET NAIL, 6 OR MORE 02/24/2023 05686-RGLPHWN NAIL, 6 OR MORE 04/28/2023 61593-EKIHVHX NAIL, 6 OR MORE 07/03/2023 95039-ZAKIZCG NAIL, 6 OR MORE 09/11/2023 61146-JCTEXBJ NAIL, 6 OR MORE 11/17/2023 92188-FPCSFER NAIL, 6 OR MORE 01/19/2024 93778-NURYANU NAIL, 6 OR MORE 04/01/2024 43007-JWXKIAT NAIL, 6 OR MORE 06/03/2024 49168-QWFYUGO NAIL, 1-5 10/18/2015 30278-KTOLUFE NAIL, 1-5 10/19/2012 14740-LYYKQBW NAIL, 1-5 12/28/2012 91740-Heuwmtdx Plate 01/27/2012 88485-Gygigmvu Plate 03/18/2013 48239-Naowxztq Plate 12/28/2012 94654-Ccwlhhtf Plate 05/04/2012 45986-Dsvykvqz Plate 08/25/2014 34907-Dplcztol Plate 06/22/2014 62919-Jzwddble Plate 04/14/2014 58106-Vjipmwtk Plate 11/01/2013 23872-Cztaalhf Plate 01/17/2014 79886-Nqptgqoc Plate 06/16/2013 43881-Wdrvwxuh Plate 10/18/2015 92528-Zufbzkqb Plate 09/26/2016 37544-Sjhpnjbz Plate 04/03/2017 81686-Hohsbktu Plate 02/03/2017 62627-Yfbmqdoo Plate 01/11/2015 52108-Bcgqbetd Plate 11/02/2014 58106-Bjniptwc Plate 03/22/2015 10459-Mqzbutqu Plate 12/03/2021 05632-Ebjasukr Plate 04/08/2022 69496-Leaywzsk Plate 07/05/2021 65789-Jkbvycgk Plate 02/22/2021 54628-Fzokppes Plate 04/30/2021 70719-Glxagaig Plate 04/06/2020 20808-Qcncbgrv Plate 10/12/2020 00682-Idoqflju Plate 06/05/2017 50426-Ibivuutt Plate 07/22/2019 89410-Pjujmdbj Plate 04/23/2018 34062-Ymjozgbj Plate 12/15/2017 69314-Awtqcrfz Plate 11/17/2023 55424-Pbdjjnvt Plate Each Additional 11/2020 74852-Hpkjgtng Plate Each Additional 18652-Eepjsqpp Plate Each Additional 49398-Dxysvtcg Plate Each Additional 09/2014 31130-Ecdkyuuo Plate Each Additional 07/2015 23194-Cribclnb Plate Each Additional 04899-Rldcolep Plate Each Additional 09/2013 42911-Trxukqna Plate Each Additional 59994-Uunznhtk Plate Each Additional 04/2013 35568- Debride <25 sq cm 03/18/2013 38629- Debride <25 sq cm 05/04/2012 71489- Debride <25 sq cm 12/28/2012 61507- Debride <25 sq cm 08/10/2012 95575- Debride <25 sq cm 10/19/2012 99000- Debride <25 sq cm 08/12/2011 83753- Debride <25 sq cm 10/23/2011 46270- Debride <25 sq cm 01/27/2012 63738- Debride <25 sq cm 08/25/2014 88537- Debride <25 sq cm 11/01/2013 29819- Debride <25 sq cm 01/17/2014 28193- Debride <25 sq cm 08/26/2013 27683- Debride <25 sq cm 11/02/2014 20733- Debride <25 sq cm 01/11/2015 97686- Debride <25 sq cm 05/13/2016 02408- Debride <25 sq cm 03/22/2015 10866- Debride <25 sq cm 11/28/2016 37184- Debride <25 sq cm 04/03/2017 20870- Debride <25 sq cm 06/05/2017 12827- Debride <25 sq cm 05/24/2015 78770- Debride <25 sq cm 09/26/2016 52714- Debride <25 sq cm 10/30/2015 01116- Debride <25 sq cm 07/15/2016 86168- Debride <25 sq cm 02/04/2022 86992- Debride <25 sq cm 12/03/2021 60574- Debride <25 sq cm 06/10/2022 26752- Debride <25 sq cm 10/17/2022 26107- Debride <25 sq cm 08/12/2022 72117- Debride <25 sq cm 02/22/2021 06995- Debride <25 sq cm 12/14/2020 61511- Debride <25 sq cm 04/30/2021 06772- Debride <25 sq cm 09/06/2021 51793- Debride <25 sq cm 07/05/2021 58372- Debride <25 sq cm 06/25/2018 17662- Debride <25 sq cm 05/20/2019 07223- Debride <25 sq cm 01/07/2019 56414- Debride <25 sq cm 10/29/2018 15561- Debride <25 sq cm 08/27/2018 40926- Debride <25 sq cm 07/22/2019 88253- Debride <25 sq cm 11/25/2019 38273- Debride <25 sq cm 09/23/2019 36216- Debride <25 sq cm 08/10/2020 75958- Debride <25 sq cm 06/08/2020 07963- Debride <25 sq cm 04/06/2020 89063- Debride <25 sq cm 02/03/2020 41432- Debride <25 sq cm 06/03/2024 28788- Debride <25 sq cm 02/02/2024 92374- Debride <25 sq cm 11/17/2023 85295- Debride <25 sq cm 09/11/2023 29692- Debride <25 sq cm 07/03/2023 91480- Debride <25 sq cm 04/28/2023 50502- Debride <25 sq cm 01/06/2023 37592- Debride <25 sq cm 02/24/2023 27902- Debride <25 sq cm 12/23/2022 42646-UXEXCEK SKIN/TISSUE 01/19/2024 48678 I&D ABSCESS- SIMPLE,SINGLE 023 57150 I&D ABSCESS- SIMPLE,SINGLE 017 11105 I&D ABSCESS- SIMPLE,SINGLE 015 [id number] I&D ABSCESS- SIMPLE,SINGLE 016 Insurance Providers Payer Name Payer Address Payer Phone Subscriber Number Group Number Insured Name Patient Relationship to Insured Coverage Start Date Coverage End Date Medicare [employer] [address] [place] [address] [phone] [id number] Reese, Doris Self - patient is the insured [employer] [address] [place] [address] [phone] [id number] Doris Leigh Self - patient is the insured Medical (General) History Medical History History ICD Code transfusions joint implants/screws Arthritis hypertension thyroid disorder psoriasis Surgical History Surgery Date(Month/Year) cataract surgery 1989 hip replacement 1997 knee replacement 1997 knee surgery 2001 Right Knee Surgery 04/26/20
--- OUTSIDE RECORDS SUMMARY | 2025-01-05 14:06 | XMS_ITS | Encounter Summary ---
Author Organization [facility] Address [address] [place] [address] Care Team Providers Care Anatomic Pathology Manager Name Role Phone Doris Vázquez MD Primary Care Provider + Encounter Details Date Type Department Care Team (Late st Contact Info) Description 07/24/[address] [facility] - Main Lab 299 [facility] [place] [address] Doris Vázquez MD [address] [address] Gastro-esophageal reflux disease with esophagitis, [...] Procedure Name Priority Date/Time Associated Diagnosis Comments TRAVEL PHLEBOTOMY FEE Routine 07/26/2024 6:51 AM EST Gastro-esophageal reflux disease with esophagitis, without bleeding Essential (primary) hypertension COMPLETE BLOOD COUNT Routine 07/26/2024 6:51 AM EST Gastro-esophageal reflux disease with esophagitis, without bleeding Essential (primary) hypertension BASIC METABOLIC PANEL Routine 07/26/2024 6:51 AM EST Gastro-esophageal reflux disease with esophagitis, without bleeding Essential (primary) hypertension documented in this encounter Results * Travel phlebotomy fee (07/26/2024 6:51 AM EST) [facility] TRAVEL PHLEBOTOMY FEE Completed 07/26/2024 1:01 PM [facility] Blood Venous blood specimen / Unknown 07/26/2024 6:51 AM EST 07/26/2024 12:07 PM EST us Doris Vázquez MD LAB BLOOD ORDERABLES Fin al Result [facility] [address] [place] [address], * Basic metabolic panel (07/26/2024 6:51 AM EST) Sodium 141 133 - 145 mmol/L LAB CHEMISTRY METHOD 07/26/2024 2:03 PM [facility] Potassium 4.2 3.5 - 5.5 mmol/L LAB CHEMISTRY METHOD 07/26/2024 2:03 PM [facility] Chloride 108 96 - 110 mmol/L LAB CHEMISTRY METHOD 07/26/2024 2:03 PM [facility] CO2 27 21 - 32 mmol/L LAB CHEMISTRY METHOD 07/26/2024 2:03 PM [facility] Anion Gap 6 3 - 11 LAB CHEMISTRY METHOD 07/26/2024 2:03 PM [facility] Glucose 77 70 - 100 mg/dL LAB CHEMISTRY METHOD 07/26/2024 2:03 PM [facility] BUN 11 5 - 25 mg/dL LAB CHEMISTRY METHOD 07/26/2024 2:03 PM [facility] Creatinine 0.56 0.50 - 1.10 mg/dL LAB CHEMISTRY METHOD 07/26/2024 2:03 PM [facility] eGFR 90 >=60 mL/min/1. 73m2 LAB CHEMISTRY METHOD 07/26/2024 2:03 PM [facility] Comment:Calculation based on the??Chronic Kidney Disease Epidemiology Collaboration (CKD-EPI) equation refit??without adjustment for race. BUN/Creatinine Ratio 19.6 LAB CHEMISTRY METHOD 07/26/2024 2:03 PM [facility] Calcium 9.0 8.5 - 10.5 mg/dL LAB CHEMISTRY METHOD 07/26/2024 2:03 PM [facility] Blood Venous blood specimen / Unknown Venipuncture / Unknown 07/26/2024 6:51 AM EST 07/26/2024 12:07 PM EST us Doris Vázquez MD LAB BLOOD ORDERABLES Fin al Result [facility] [address] [place] [address], * (ABNORMAL) Complete blood count (07/26/2024 6:51 AM EST) WBC 3.6(L) 4.8 - 10.8 K/mcL LAB HEMETOLOGY METHOD 07/26/2024 1:48 PM [facility] RBC 2.80(L) 3.80 - 4.80 M/mcL LAB HEMETOLOGY METHOD 07/26/2024 1:48 PM [facility] Hemoglobin 9.6(L) 11.5 - 16.0 g/dL LAB HEMETOLOGY METHOD 07/26/2024 1:48 PM [facility] Hematocrit 31.7(L) 35.0 - 47.0 % LAB HEMETOLOGY METHOD 07/26/2024 1:48 PM [facility] MCV 115.3(H) 79.0 - 98.0 FL LAB HEMETOLOGY METHOD 07/26/2024 1:48 PM [facility] MCH 34.9(H) 27.0 - 32.0 pcg LAB HEMETOLOGY METHOD 07/26/2024 1:48 PM [facility] MCHC 30.3(L) 32.0 - 37.0 g/dL LAB HEMETOLOGY METHOD 07/26/2024 1:48 PM EST [facility] RDW 19.5(H) 11.0 - 15.0 % LAB HEMETOLOGY METHOD 07/26/2024 1:48 PM EST [facility] Platelets 212 130 - 400 K/mcL LAB HEMETOLOGY METHOD 07/26/2024 1:48 PM EST [facility] MPV 10.8 7.0 - 11.0 FL LAB HEMETOLOGY METHOD 07/26/2024 1:48 PM EST [facility] NRBC 0.0 <1.0 % LAB HEMETOLOGY METHOD 07/26/2024 1:48 PM EST [facility] NRBC Absolute 0.00 <0.10 K/mcL LAB HEMETOLOGY METHOD 07/26/2024 1:48 PM [facility] Blood Venous blood specimen / Unknown Venipuncture / Unknown 07/26/2024 6:51 AM EST 07/26/2024 12:07 PM EST Doris Vázquez MD LAB BLOOD ORDERABLES Fin al Result [facility] [address] [place] [address], documented in this encounter Visit Diagnoses Diagnosis Gastro-esophageal reflux disease with esophagitis, without bleeding Essential (primary) hypertension Unspecified essential hypertension documented in this encounter Care Teams Anatomic Pathology Manager Relationship Specialty Start Date End Date Doris Vázquez MD [address] [place] [phone] PCP - General Family Medicine 08/01/24 documented as of this encounter
--- OUTSIDE RECORDS SUMMARY | 2025-01-05 14:06 | XMS_ITS | Encounter Summary ---
Author Organization [facility] Address [address] [place] [address] Care Team Providers Care Storage Center Manager Name Role Phone Doris Vázquez MD Primary Care Provider + Encounter Details Date Type Department Care Team (Late st Contact Info) Description 08/01/2024 Lab Requisition [facility] - Main Lab 299 [facility] [place] [address] Doris Vázquez MD [address] [address] Gastro-esophageal reflux disease with esophagitis, [...] Associated Diagnosis Comments COMPLETE BLOOD COUNT Routine 08/02/2024 6:48 AM EST Gastro-esophageal reflux disease with esophagitis, without bleeding Essential (primary) hypertension BASIC METABOLIC PANEL Routine 08/02/2024 6:48 AM EST Gastro-esophageal reflux disease with esophagitis, without bleeding Essential (primary) hypertension documented in this encounter Results * Basic metabolic panel (08/02/2024 6:48 AM EST) Sodium 141 133 - 145 mmol/L LAB CHEMISTRY METHOD 08/02/2024 12:36 PM EST [facility] ([facility] Potassium 3.7 3.5 - 5.5 mmol/L LAB CHEMISTRY METHOD 08/02/2024 12:36 PM [facility] Chloride 108 96 - 110 mmol/L LAB CHEMISTRY METHOD 08/02/2024 12:36 PM [facility] CO2 25 21 - 32 mmol/L LAB CHEMISTRY METHOD 08/02/2024 12:36 PM [facility] Anion Gap 8 3 - 11 LAB CHEMISTRY METHOD 08/02/2024 12:36 PM [facility] Glucose 80 70 - 100 mg/dL LAB CHEMISTRY METHOD 08/02/2024 12:36 PM [facility] BUN 10 5 - 25 mg/dL LAB CHEMISTRY METHOD 08/02/2024 12:36 PM [facility] Creatinine 0.59 0.50 - 1.10 mg/dL LAB CHEMISTRY METHOD 08/02/2024 12:36 PM [facility] eGFR 89 >=60 mL/min/1. 73m2 LAB CHEMISTRY METHOD 08/02/2024 12:36 PM [facility] Comment:Calculation based on the??Chronic Kidney Disease Epidemiology Collaboration (CKD-EPI) equation refit??without adjustment for race. BUN/Creatinine Ratio 16.9 LAB CHEMISTRY METHOD 08/02/2024 12:36 PM [facility] Calcium 9.6 8.5 - 10.5 mg/dL LAB CHEMISTRY METHOD 08/02/2024 12:36 PM [facility] Blood Venous blood specimen / Unknown 08/02/2024 6:48 AM EST 08/02/2024 10:53 AM EST us Doris Vázquez MD LAB BLOOD ORDERABLES Fin al Result [facility] [address] [place] [address], * (ABNORMAL) Complete blood count (08/02/2024 6:48 AM EST) WBC 3.4(L) 4.8 - 10.8 K/mcL LAB HEMETOLOGY METHOD 08/02/2024 1:03 PM [facility] RBC 3.20(L) 3.80 - 4.80 M/mcL LAB HEMETOLOGY METHOD 08/02/2024 1:03 PM [facility] Hemoglobin 11.1(L) 11.5 - 16.0 g/dL LAB HEMETOLOGY METHOD 08/02/2024 1:03 PM [facility] Hematocrit 36.2 35.0 - 47.0 % LAB HEMETOLOGY METHOD 08/02/2024 1:03 PM [facility] MCV 113.1(H) 79.0 - 98.0 FL LAB HEMETOLOGY METHOD 08/02/2024 1:03 PM [facility] MCH 34.7(H) 27.0 - 32.0 pcg LAB HEMETOLOGY METHOD 08/02/2024 1:03 PM [facility] MCHC 30.7(L) 32.0 - 37.0 g/dL LAB HEMETOLOGY METHOD 08/02/2024 1:03 PM [facility] RDW 17.2(H) 11.0 - 15.0 % LAB HEMETOLOGY METHOD 08/02/2024 1:03 PM [facility] Platelets 178 130 - 400 K/mcL LAB HEMETOLOGY METHOD 08/02/2024 1:03 PM [facility] MPV 11.0 7.0 - 11.0 FL LAB HEMETOLOGY METHOD 08/02/2024 1:03 PM [facility] NRBC 0.0 <1.0 % LAB HEMETOLOGY METHOD 08/02/2024 1:03 PM [facility] NRBC Absolute 0.00 <0.10 K/mcL LAB HEMETOLOGY METHOD 08/02/2024 1:03 PM [facility] Blood Venous blood specimen / Unknown Venipuncture / Unknown 08/02/2024 6:48 AM EST 08/02/2024 10:52 AM EST Doris Vázquez MD LAB BLOOD ORDERABLES Fin al Result [facility] ([facility]) [facility] [address] [place] [address], documented in this encounter Visit Diagnoses Diagnosis Gastro-esophageal reflux disease with esophagitis, without bleeding Essential (primary) hypertension Unspecified essential hypertension documented in this encounter Care Teams Storage Center Manager Relationship Specialty Start Date End Date Doris Vázquez MD [address] [place] [phone] PCP - General Family Medicine 08/01/24 documented as of this encounter
--- OUTSIDE RECORDS SUMMARY | 2025-01-05 14:06 | XMS_ITS | Encounter Summary ---
Author Organization [facility] Address [address] [place] [address] Care Team Providers Care Blower And Compressor Assembler Name Role Phone Doris Vázquez MD Primary Care Provider + Encounter Details Date Type Department Care Team (Late st Contact Info) Description 09/11/2024 Lab Requisition [facility] - Main Lab 299 [facility] [place] [address] Doris Vázquez MD [address] [address] Gastro-esophageal reflux disease with esophagitis, [...] Associated Diagnosis Comments COMPLETE BLOOD COUNT Routine 09/13/2024 6:50 AM EST Gastro-esophageal reflux disease with esophagitis, without bleeding Essential (primary) hypertension BASIC METABOLIC PANEL Routine 09/13/2024 6:50 AM EST Gastro-esophageal reflux disease with esophagitis, without bleeding Essential (primary) hypertension documented in this encounter Results * Basic metabolic panel (09/13/2024 6:50 AM EST) Sodium 140 133 - 145 mmol/L LAB CHEMISTRY METHOD 09/13/2024 11:08 AM EST [facility] Potassium 4.1 3.5 - 5.5 mmol/L LAB CHEMISTRY METHOD 09/13/2024 11:[address] [facility] Chloride 107 96 - 110 mmol/L LAB CHEMISTRY METHOD 09/13/2024 11:[address] [facility] CO2 30 21 - 32 mmol/L LAB CHEMISTRY METHOD 09/13/2024 11:[address] [facility] Anion Gap 3 3 - 11 LAB CHEMISTRY METHOD 09/13/2024 11:[address] [facility] Glucose 87 70 - 100 mg/dL LAB CHEMISTRY METHOD 09/13/2024 11:[address] [facility] BUN 7 5 - 25 mg/dL LAB CHEMISTRY METHOD 09/13/2024 11:[address] [facility] Creatinine 0.56 0.50 - 1.10 mg/dL LAB CHEMISTRY METHOD 09/13/2024 11:[address] [facility] eGFR 90 >=60 mL/min/1. 73m2 LAB CHEMISTRY METHOD 09/13/2024 11:[address] [facility] Comment:Calculation based on the??Chronic Kidney Disease Epidemiology Collaboration (CKD-EPI) equation refit??without adjustment for race. BUN/Creatinine Ratio 12.5 LAB CHEMISTRY METHOD 09/13/2024 11:[address] [facility] Calcium 9.1 8.5 - 10.5 mg/dL LAB CHEMISTRY METHOD 09/13/2024 11:[address] [facility] Blood Venous blood specimen / Unknown Venipuncture / Unknown 09/13/2024 6:50 AM EST 09/13/2024 10:03 AM EST us Doris Vázquez MD LAB BLOOD ORDERABLES Fin al Result [facility] [address] [place] [address], * (ABNORMAL) Complete blood count (09/13/2024 6:50 AM EST) WBC 6.3 4.8 - 10.8 K/mcL LAB HEMETOLOGY METHOD 09/13/2024 10:[address] [facility] RBC 3.20(L) 3.80 - 4.80 M/mcL LAB HEMETOLOGY METHOD 09/13/2024 10:[address] [facility] Hemoglobin 11.0(L) 11.5 - 16.0 g/dL LAB HEMETOLOGY METHOD 09/13/2024 10:[address] [facility] Hematocrit 34.2(L) 35.0 - 47.0 % LAB HEMETOLOGY METHOD 09/13/2024 10:[address] [facility] MCV 105.6(H) 79.0 - 98.0 FL LAB HEMETOLOGY METHOD 09/13/2024 10:[address] [facility] MCH 34.0(H) 27.0 - 32.0 pcg LAB HEMETOLOGY METHOD 09/13/2024 10:[address] [facility] MCHC 32.2 32.0 - 37.0 g/dL LAB HEMETOLOGY METHOD 09/13/2024 10:[address] [facility] RDW 14.6 11.0 - 15.0 % LAB HEMETOLOGY METHOD 09/13/2024 10:[address] [facility] Platelets 240 130 - 400 K/mcL LAB HEMETOLOGY METHOD 09/13/2024 10:[address] [facility] MPV 10.0 7.0 - 11.0 FL LAB HEMETOLOGY METHOD 09/13/2024 10:[address] [facility] NRBC 0.0 <1.0 % LAB HEMETOLOGY METHOD 09/13/2024 10:[address] [facility] NRBC Absolute 0.00 <0.10 K/mcL LAB HEMETOLOGY METHOD 09/13/2024 10:28 AM EST [facility] Blood Venous blood specimen / Unknown Venipuncture / Unknown 09/13/2024 6:50 AM EST 09/13/2024 10:02 AM EST Doris Vázquez MD LAB BLOOD ORDERABLES Fin al Result [facility] ([facility]) [facility] [address] [place] [address], documented in this encounter Visit Diagnoses Diagnosis Gastro-esophageal reflux disease with esophagitis, without bleeding Essential (primary) hypertension Unspecified essential hypertension documented in this encounter Care Teams Blower And Compressor Assembler Relationship Specialty Start Date End Date Doris Vázquez MD [address] [place] [phone] PCP - General Family Medicine 08/01/24 documented as of this encounter
--- OUTSIDE RECORDS SUMMARY | 2025-01-05 14:06 | XMS_ITS | Encounter Summary ---
Author Organization [facility] Address [address] [place] [address] Care Team Providers Care Want Ad Receiver Name Role Phone Doris Vázquez MD Primary Care Provider + Encounter Details Date Type Department Care Team (Late st Contact Info) Description 08/28/2024 Lab Requisition [facility] - Main Lab 299 [facility] [place] [address] Doris Vázquez MD [address] [address] Gastro-esophageal reflux disease with esophagitis, [...] Associated Diagnosis Comments COMPLETE BLOOD COUNT Routine 08/30/2024 7:03 AM EST Gastro-esophageal reflux disease with esophagitis, without bleeding Essential (primary) hypertension BASIC METABOLIC PANEL Routine 08/30/2024 7:03 AM EST Gastro-esophageal reflux disease with esophagitis, without bleeding Essential (primary) hypertension documented in this encounter Results * Basic metabolic panel (08/30/2024 7:03 AM EST) Sodium 139 133 - 145 mmol/L LAB CHEMISTRY METHOD 08/30/2024 12:22 PM EST [facility] Potassium 4.0 3.5 - 5.5 mmol/L LAB CHEMISTRY METHOD 08/30/2024 12:22 PM [facility] Chloride 104 96 - 110 mmol/L LAB CHEMISTRY METHOD 08/30/2024 12:22 PM [facility] CO2 30 21 - 32 mmol/L LAB CHEMISTRY METHOD 08/30/2024 12:22 PM [facility] Anion Gap 5 3 - 11 LAB CHEMISTRY METHOD 08/30/2024 12:22 PM [facility] Glucose 78 70 - 100 mg/dL LAB CHEMISTRY METHOD 08/30/2024 12:22 PM [facility] BUN 15 5 - 25 mg/dL LAB CHEMISTRY METHOD 08/30/2024 12:22 PM [facility] Creatinine 0.57 0.50 - 1.10 mg/dL LAB CHEMISTRY METHOD 08/30/2024 12:22 PM [facility] eGFR 90 >=60 mL/min/1. 73m2 LAB CHEMISTRY METHOD 08/30/2024 12:22 PM [facility] Comment:Calculation based on the??Chronic Kidney Disease Epidemiology Collaboration (CKD-EPI) equation refit??without adjustment for race. BUN/Creatinine Ratio 26.3 LAB CHEMISTRY METHOD 08/30/2024 12:22 PM [facility] Calcium 9.4 8.5 - 10.5 mg/dL LAB CHEMISTRY METHOD 08/30/2024 12:22 PM [facility] Blood Venous blood specimen / Unknown Venipuncture / Unknown 08/30/2024 7:03 AM EST 08/30/2024 10:57 AM EST us Doris Vázquez MD LAB BLOOD ORDERABLES Fin al Result [facility] [address] [place] [address], * (ABNORMAL) Complete blood count (08/30/2024 7:03 AM EST) WBC 5.5 4.8 - 10.8 K/mcL LAB HEMETOLOGY METHOD 08/30/2024 12:23 PM [facility] RBC 3.00(L) 3.80 - 4.80 M/mcL LAB HEMETOLOGY METHOD 08/30/2024 12:23 PM [facility] Hemoglobin 9.9(L) 11.5 - 16.0 g/dL LAB HEMETOLOGY METHOD 08/30/2024 12:23 PM [facility] Hematocrit 31.7(L) 35.0 - 47.0 % LAB HEMETOLOGY METHOD 08/30/2024 12:23 PM [facility] MCV 107.1(H) 79.0 - 98.0 FL LAB HEMETOLOGY METHOD 08/30/2024 12:23 PM [facility] MCH 33.4(H) 27.0 - 32.0 pcg LAB HEMETOLOGY METHOD 08/30/2024 12:23 PM [facility] MCHC 31.2(L) 32.0 - 37.0 g/dL LAB HEMETOLOGY METHOD 08/30/2024 12:23 PM [facility] RDW 13.8 11.0 - 15.0 % LAB HEMETOLOGY METHOD 08/30/2024 12:23 PM [facility] Platelets 331 130 - 400 K/mcL LAB HEMETOLOGY METHOD 08/30/2024 12:23 PM [facility] MPV 9.7 7.0 - 11.0 FL LAB HEMETOLOGY METHOD 08/30/2024 12:23 PM [facility] NRBC 0.0 <1.0 % LAB HEMETOLOGY METHOD 08/30/2024 12:23 PM [facility] NRBC Absolute 0.00 <0.10 K/mcL LAB HEMETOLOGY METHOD 08/30/2024 12:23 PM [facility] Blood Venous blood specimen / Unknown Venipuncture / Unknown 08/30/2024 7:03 AM EST 08/30/2024 10:57 AM EST Doris Vázquez MD LAB BLOOD ORDERABLES Fin al Result [facility] ([facility]) [facility] [address] [place] [address], documented in this encounter Visit Diagnoses Diagnosis Gastro-esophageal reflux disease with esophagitis, without bleeding Essential (primary) hypertension Unspecified essential hypertension documented in this encounter Care Teams Want Ad Receiver Relationship Specialty Start Date End Date Doris Vázquez MD [address] [place] [phone] PCP - General Family Medicine 08/01/24 documented as of this encounter
--- OUTSIDE RECORDS SUMMARY | 2025-01-05 14:06 | XMS_ITS | Encounter Summary ---
Author Organization [facility] Address [address] [place] [address] Care Team Providers Care Associate Director Financial Aid Name Role Phone Doris Vázquez MD Primary Care Provider + Encounter Details Date Type Department Care Team (Late st Contact Info) Description 09/03/2024 Lab Requisition [facility] - Main Lab [address] [place] [address] Doris Vázquez MD [address] [address] Gastro-esophageal reflux disease with esophagitis, [...] Associated Diagnosis Comments COMPLETE BLOOD COUNT Routine 09/06/2024 7:14 AM EST Gastro-esophageal reflux disease with esophagitis, without bleeding Essential (primary) hypertension BASIC METABOLIC PANEL Routine 09/06/2024 7:14 AM EST Gastro-esophageal reflux disease with esophagitis, without bleeding Essential (primary) hypertension documented in this encounter Results * (ABNORMAL) Basic metabolic panel (09/06/2024 7:14 AM EST) Sodium 143 133 - 145 mmol/L LAB CHEMISTRY METHOD 09/06/2024 11:19 AM EST [facility] Potassium 3.9 3.5 - 5.5 mmol/L LAB CHEMISTRY METHOD 09/06/2024 11:19 AM [facility] Chloride 109 96 - 110 mmol/L LAB CHEMISTRY METHOD 09/06/2024 11:19 AM [facility] CO2 26 21 - 32 mmol/L LAB CHEMISTRY METHOD 09/06/2024 11:19 AM [facility] Anion Gap 8 3 - 11 LAB CHEMISTRY METHOD 09/06/2024 11:19 AM [facility] Glucose 93 70 - 100 mg/dL LAB CHEMISTRY METHOD 09/06/2024 11:19 AM [facility] BUN 6 5 - 25 mg/dL LAB CHEMISTRY METHOD 09/06/2024 11:19 AM [facility] Creatinine 0.47(L) 0.50 - 1.10 mg/dL LAB CHEMISTRY METHOD 09/06/2024 11:19 AM [facility] eGFR 94 >=60 mL/min/1. 73m2 LAB CHEMISTRY METHOD 09/06/2024 11:19 AM [facility] Comment:Calculation based on the??Chronic Kidney Disease Epidemiology Collaboration (CKD-EPI) equation refit??without adjustment for race. BUN/Creatinine Ratio 12.8 LAB CHEMISTRY METHOD 09/06/2024 11:19 AM [facility] Calcium 9.1 8.5 - 10.5 mg/dL LAB CHEMISTRY METHOD 09/06/2024 11:19 AM [facility] Blood Venous blood specimen / Unknown Venipuncture / Unknown 09/06/2024 7:14 AM EST 09/06/2024 9:52 AM EST us Doris Vázquez MD LAB BLOOD ORDERABLES Fin al Result [facility] [address] [place] [address], * (ABNORMAL) Complete blood count (09/06/2024 7:14 AM EST) WBC 4.8 4.8 - 10.8 K/mcL LAB HEMETOLOGY METHOD 09/06/2024 10:22 AM [facility] RBC 3.30(L) 3.80 - 4.80 M/mcL LAB HEMETOLOGY METHOD 09/06/2024 10:22 AM [facility] Hemoglobin 11.0(L) 11.5 - 16.0 g/dL LAB HEMETOLOGY METHOD 09/06/2024 10:22 AM [facility] Hematocrit 34.8(L) 35.0 - 47.0 % LAB HEMETOLOGY METHOD 09/06/2024 10:22 AM [facility] MCV 105.5(H) 79.0 - 98.0 FL LAB HEMETOLOGY METHOD 09/06/2024 10:22 AM [facility] MCH 33.3(H) 27.0 - 32.0 pcg LAB HEMETOLOGY METHOD 09/06/2024 10:22 AM [facility] MCHC 31.6(L) 32.0 - 37.0 g/dL LAB HEMETOLOGY METHOD 09/06/2024 10:22 AM [facility] RDW 14.4 11.0 - 15.0 % LAB HEMETOLOGY METHOD 09/06/2024 10:22 AM [facility] Platelets 303 130 - 400 K/[facility] LAB HEMETOLOGY METHOD 09/06/2024 10:22 AM [facility] MPV 9.7 7.0 - 11.0 FL LAB HEMETOLOGY METHOD 09/06/2024 10:22 AM [facility] NRBC 0.0 <1.0 % LAB HEMETOLOGY METHOD 09/06/2024 10:22 AM [facility] NRBC Absolute 0.00 <0.10 K/mcL LAB HEMETOLOGY METHOD 09/06/2024 10:[address] [facility] Blood Venous blood specimen / Unknown Venipuncture / Unknown 09/06/2024 7:14 AM EST 09/06/2024 9:52 AM EST us Doris Vázquez MD LAB BLOOD ORDERABLES Fin al Result [facility] [address] [place] [address], documented in this encounter Visit Diagnoses Diagnosis Gastro-esophageal reflux disease with esophagitis, without bleeding Essential (primary) hypertension Unspecified essential hypertension documented in this encounter Care Teams Associate Director Financial Aid Relationship Specialty Start Date End Date Doris Vázquez MD [address] [place] [phone] PCP - General Family Medicine 08/01/24 documented as of this encounter
--- OUTSIDE RECORDS SUMMARY | 2025-01-05 14:06 | XMS_ITS | Encounter Summary ---
Author Organization [facility] Address [address] [place] [address] Care Team Providers Care Printing Plate Clerk Name Role Phone Doris Vázquez MD Primary Care Provider + Encounter Details Date Type Department Care Team (Late st Contact Info) Description 09/14/2024 Lab Requisition [facility] - Main Lab 299 [facility] [place] [address] Doris Vázquez MD 819 [facility] 1 [place] [address] Gastro-esophageal reflux disease with esophagitis, without [...] Procedure Name Priority Date/Time Associated Diagnosis Comments CBC WITH AUTO DIFFERENTIAL Routine 09/16/2024 6:40 AM EST Gastro-esophageal reflux disease with esophagitis, without bleeding Essential (primary) hypertension CBC AND DIFFERENTIAL Routine 09/16/2024 6:40 AM EST Gastro-esophageal reflux disease with esophagitis, without bleeding Essential (primary) hypertension BASIC METABOLIC PANEL Routine 09/16/2024 6:40 AM EST Gastro-esophageal reflux disease with esophagitis, without bleeding Essential (primary) hypertension documented in this encounter Results * (ABNORMAL) CBC auto differential (09/16/2024 6:40 AM EST) WBC 6.2 4.8 - 10.8 K/[facility] LAB HEMETOLOGY METHOD 09/16/2024 10:02 AM [facility] LAB RBC 3.30(L) 3.80 - 4.80 M/mcL LAB HEMETOLOGY METHOD 09/16/2024 10:02 AM [facility] LAB Hemoglobin 10.9(L) 11.5 - 16.0 g/dL LAB HEMETOLOGY METHOD 09/16/2024 10:02 AM [facility] LAB Hematocrit 34.7(L) 35.0 - 47.0 % LAB HEMETOLOGY METHOD 09/16/2024 10:02 AM [facility] LAB MCV 105.5(H) 79.0 - 98.0 FL LAB HEMETOLOGY METHOD 09/16/2024 10:02 AM [facility] LAB MCH 33.1(H) 27.0 - 32.0 pcg LAB HEMETOLOGY METHOD 09/16/2024 10:02 AM [facility] LAB MCHC 31.4(L) 32.0 - 37.0 g/dL LAB HEMETOLOGY METHOD 09/16/2024 10:02 AM [facility] LAB RDW 14.6 11.0 - 15.0 % LAB HEMETOLOGY METHOD 09/16/2024 10:02 AM [facility] LAB Platelets 218 130 - 400 K/mcL LAB HEMETOLOGY METHOD 09/16/2024 10:02 AM [facility] LAB MPV 10.0 7.0 - 11.0 FL LAB HEMETOLOGY METHOD 09/16/2024 10:02 AM [facility] LAB NRBC 0.0 <1.0 % LAB HEMETOLOGY METHOD 09/16/2024 10:02 AM [facility] LAB NRBC Absolute 0.00 <0.10 K/mcL LAB HEMETOLOGY METHOD 09/16/2024 10:02 AM [facility] LAB Neutrophils Relative 62.7 % LAB HEMETOLOGY METHOD 09/16/2024 10:02 AM [facility] LAB Lymphocytes Relative 24.8 % LAB HEMETOLOGY METHOD 09/16/2024 10:02 AM [facility] LAB Monocytes Relative 8.3 % LAB HEMETOLOGY METHOD 09/16/2024 10:02 AM [facility] LAB Eosinophils Relative 3.7 % LAB HEMETOLOGY METHOD 09/16/2024 10:02 AM [facility] LAB Basophils Relative 0.2 % LAB HEMETOLOGY METHOD 09/16/2024 10:02 AM [facility] LAB Immature Granulocytes Relative 0.3 % LAB HEMETOLOGY METHOD 09/16/2024 10:02 AM [facility] LAB Neutrophils Absolute 3.91 1.50 - 7.00 K/mcL LAB HEMETOLOGY METHOD 09/16/2024 10:02 AM [facility] LAB Lymphocytes Absolute 1.55 1.00 - 5.00 K/mcL LAB HEMETOLOGY METHOD 09/16/2024 10:02 AM [facility] LAB Monocytes Absolute 0.52 0.20 - 1.00 K/mcL LAB HEMETOLOGY METHOD 09/16/2024 10:02 AM [facility] LAB Eosinophils Absolute 0.23 0.00 - 0.50 K/mcL LAB HEMETOLOGY METHOD 09/16/2024 10:02 AM [facility] LAB Basophils Absolute 0.01 0.00 - 0.20 K/mcL LAB HEMETOLOGY METHOD 09/16/2024 10:02 AM [facility] LAB Immature Granulocytes Absolute 0.02 0.00 - 0.03 K/mcL LAB HEMETOLOGY METHOD 09/16/2024 10:02 AM [facility] LAB Blood Venous blood specimen / Unknown Venipuncture / Unknown 09/16/2024 6:40 AM EST 09/16/2024 9:40 AM EST us Doris Vázquez MD LAB BLOOD ORDERABLES Fin al Result [facility] LAB [address] [place] [address], * Basic metabolic panel (09/16/2024 6:40 AM EST) Sodium 140 133 - 145 mmol/L LAB CHEMISTRY METHOD 09/16/2024 10:29 AM [facility] LAB Potassium 4.0 3.5 - 5.5 mmol/L LAB CHEMISTRY METHOD 09/16/2024 10:29 AM [facility] LAB Chloride 107 96 - 110 mmol/L LAB CHEMISTRY METHOD 09/16/2024 10:29 AM [facility] LAB CO2 28 21 - 32 mmol/L LAB CHEMISTRY METHOD 09/16/2024 10:29 AM [facility] LAB Anion Gap 5 3 - 11 LAB CHEMISTRY METHOD 09/16/2024 10:29 AM [facility] LAB Glucose 90 70 - 100 mg/dL LAB CHEMISTRY METHOD 09/16/2024 10:29 AM [facility] LAB BUN 8 5 - 25 mg/dL LAB CHEMISTRY METHOD 09/16/2024 10:29 AM [facility] LAB Creatinine 0.59 0.50 - 1.10 mg/dL LAB CHEMISTRY METHOD 09/16/2024 10:29 AM [facility] LAB eGFR 89 >=60 mL/min/1. 73m2 LAB CHEMISTRY METHOD 09/16/2024 10:29 AM [facility] LAB Comment:Calculation based on the??Chronic Kidney Disease Epidemiology Collaboration (CKD-EPI) equation refit??without adjustment for race. BUN/Creatinine Ratio 13.6 LAB CHEMISTRY METHOD 09/16/2024 10:29 AM [facility] LAB Calcium 9.1 8.5 - 10.5 mg/dL LAB CHEMISTRY METHOD 09/16/2024 10:29 AM EST [facility] LAB Blood Venous blood specimen / Unknown Venipuncture / Unknown 09/16/2024 6:40 AM EST 09/16/2024 9:41 AM EST us Doris Vázquez MD LAB BLOOD ORDERABLES Fin al Result [facility] LAB [address] [place] [address], documented in this encounter Visit Diagnoses Diagnosis Gastro-esophageal reflux disease with esophagitis, without bleeding Essential (primary) hypertension Unspecified essential hypertension documented in this encounter Care Teams Printing Plate Clerk Relationship Specialty Start Date End Date Doris Vázquez MD [address] [place] [phone] PCP - General Family Medicine 08/01/24 documented as of this encounter
--- OUTSIDE RECORDS SUMMARY | 2025-01-05 14:06 | XMS_ITS | Encounter Summary ---
Author Organization [facility] Address [address] [place] [address] Care Team Providers Care Transformer Assembly Supervisor Name Role Phone Doris Vázquez MD Primary Care Provider + Encounter Details Date Type Department Care Team (Late st Contact Info) Description 08/21/2024 Lab Requisition [facility] - Main Lab 299 [facility] [place] [address] Doris Vázquez MD [address] [address] Gastro-esophageal reflux disease with esophagitis, [...] Associated Diagnosis Comments COMPLETE BLOOD COUNT Routine 08/23/2024 7:48 AM EST Gastro-esophageal reflux disease with esophagitis, without bleeding Essential (primary) hypertension BASIC METABOLIC PANEL Routine 08/23/2024 7:48 AM EST Gastro-esophageal reflux disease with esophagitis, without bleeding Essential (primary) hypertension documented in this encounter Results * Basic metabolic panel (08/23/2024 7:48 AM EST) Sodium 138 133 - 145 mmol/L LAB CHEMISTRY METHOD 08/23/2024 2:53 PM EST [facility] LAB Potassium 4.0 3.5 - 5.5 mmol/L LAB CHEMISTRY METHOD 08/23/2024 2:53 PM [facility] LAB Chloride 105 96 - 110 mmol/L LAB CHEMISTRY METHOD 08/23/2024 2:53 PM [facility] LAB CO2 26 21 - 32 mmol/L LAB CHEMISTRY METHOD 08/23/2024 2:53 PM [facility] LAB Anion Gap 7 3 - 11 LAB CHEMISTRY METHOD 08/23/2024 2:53 PM [facility] LAB Glucose 80 70 - 100 mg/dL LAB CHEMISTRY METHOD 08/23/2024 2:53 PM [facility] LAB BUN 9 5 - 25 mg/dL LAB CHEMISTRY METHOD 08/23/2024 2:53 PM [facility] LAB Creatinine 0.56 0.50 - 1.10 mg/dL LAB CHEMISTRY METHOD 08/23/2024 2:53 PM [facility] LAB eGFR 90 >=60 mL/min/1. 73m2 LAB CHEMISTRY METHOD 08/23/2024 2:53 PM [facility] LAB Comment:Calculation based on the??Chronic Kidney Disease Epidemiology Collaboration (CKD-EPI) equation refit??without adjustment for race. BUN/Creatinine Ratio 16.1 LAB CHEMISTRY METHOD 08/23/2024 2:53 PM [facility] LAB Calcium 9.3 8.5 - 10.5 mg/dL LAB CHEMISTRY METHOD 08/23/2024 2:53 PM [facility] LAB Blood Venous blood specimen / Unknown Venipuncture / Unknown 08/23/2024 7:48 AM EST 08/23/2024 11:38 AM EST us Doris Vázquez MD LAB BLOOD ORDERABLES Fin al Result [facility] LAB [address] [place] [address], * (ABNORMAL) Complete blood count (08/23/2024 7:48 AM EST) WBC 5.7 4.8 - 10.8 K/mcL LAB HEMETOLOGY METHOD 08/23/2024 12:53 PM [facility] LAB RBC 3.00(L) 3.80 - 4.80 M/mcL LAB HEMETOLOGY METHOD 08/23/2024 12:53 PM [facility] LAB Hemoglobin 10.4(L) 11.5 - 16.0 g/dL LAB HEMETOLOGY METHOD 08/23/2024 12:53 PM [facility] LAB Hematocrit 32.2(L) 35.0 - 47.0 % LAB HEMETOLOGY METHOD 08/23/2024 12:53 PM [facility] LAB MCV 108.1(H) 79.0 - 98.0 FL LAB HEMETOLOGY METHOD 08/23/2024 12:53 PM [facility] LAB MCH 34.9(H) 27.0 - 32.0 pcg LAB HEMETOLOGY METHOD 08/23/2024 12:53 PM [facility] LAB MCHC 32.3 32.0 - 37.0 g/dL LAB HEMETOLOGY METHOD 08/23/2024 12:53 PM [facility] LAB RDW 14.2 11.0 - 15.0 % LAB HEMETOLOGY METHOD 08/23/2024 12:53 PM [facility] LAB Platelets 246 130 - 400 K/mcL LAB HEMETOLOGY METHOD 08/23/2024 12:53 PM [facility] LAB MPV 10.3 7.0 - 11.0 FL LAB HEMETOLOGY METHOD 08/23/2024 12:53 PM [facility] LAB NRBC 0.0 <1.0 % LAB HEMETOLOGY METHOD 08/23/2024 12:53 PM [facility] LAB NRBC Absolute 0.00 <0.10 K/mcL LAB HEMETOLOGY METHOD 08/23/2024 12:53 PM EST [facility] Blood Venous blood specimen / Unknown Venipuncture / Unknown 08/23/2024 7:48 AM EST 08/23/2024 11:37 AM EST Doris Vázquez MD LAB BLOOD ORDERABLES Fin al Result [facility] LAB [address] [place] [address], documented in this encounter Visit Diagnoses Diagnosis Gastro-esophageal reflux disease with esophagitis, without bleeding Essential (primary) hypertension Unspecified essential hypertension documented in this encounter Care Teams Transformer Assembly Supervisor Relationship Specialty Start Date End Date Doris Vzáquez MD [address] [place] [phone] PCP - General Family Medicine 08/01/24 documented as of this encounter
--- OUTSIDE RECORDS SUMMARY | 2025-01-05 14:06 | XMS_ITS | Encounter Summary ---
Author Organization [facility] Address [address] [place] [address] Care Team Providers Care Instrument Technician Helper Name Role Phone Doris Vázquez MD Primary Care Provider + Encounter Details Date Type Department Care Team (Late st Contact Info) Description 07/27/2024 Lab Requisition [facility] - Main Lab 299 [facility] [place] [address] Doris Vázquez MD [address] [address] Gastro-esophageal reflux disease with esophagitis, [...] Associated Diagnosis Comments COMPLETE BLOOD COUNT Routine 07/29/2024 6:56 AM EST Gastro-esophageal reflux disease with esophagitis, without bleeding Essential (primary) hypertension BASIC METABOLIC PANEL Routine 07/29/2024 6:56 AM EST Gastro-esophageal reflux disease with esophagitis, without bleeding Essential (primary) hypertension documented in this encounter Results * Basic metabolic panel (07/29/2024 6:56 AM EST) Sodium 143 133 - 145 mmol/L LAB CHEMISTRY METHOD 07/29/2024 12:00 PM EST [facility] LAB Potassium 3.7 3.5 - 5.5 mmol/L LAB CHEMISTRY METHOD 07/29/2024 12:[address] [facility] LAB Chloride 107 96 - 110 mmol/L LAB CHEMISTRY METHOD 07/29/2024 12:[address] [facility] LAB CO2 27 21 - 32 mmol/L LAB CHEMISTRY METHOD 07/29/2024 12:[address] [facility] LAB Anion Gap 9 3 - 11 LAB CHEMISTRY METHOD 07/29/2024 12:[address] [facility] LAB Glucose 80 70 - 100 mg/dL LAB CHEMISTRY METHOD 07/29/2024 12:[address] [facility] LAB BUN 12 5 - 25 mg/dL LAB CHEMISTRY METHOD 07/29/2024 12:[address] [facility] LAB Creatinine 0.62 0.50 - 1.10 mg/dL LAB CHEMISTRY METHOD 07/29/2024 12:[address] [facility] LAB eGFR 88 >=60 mL/min/1. 73m2 LAB CHEMISTRY METHOD 07/29/2024 12:[address] [facility] LAB Comment:Calculation based on the??Chronic Kidney Disease Epidemiology Collaboration (CKD-EPI) equation refit??without adjustment for race. BUN/Creatinine Ratio 19.4 LAB CHEMISTRY METHOD 07/29/2024 12:[address] [facility] LAB Calcium 9.3 8.5 - 10.5 mg/dL LAB CHEMISTRY METHOD 07/29/2024 12:[address] [facility] LAB Blood Venous blood specimen / Unknown Venipuncture / Unknown 07/29/2024 6:56 AM EST 07/29/2024 10:28 AM EST us Doris Vázquez MD LAB BLOOD ORDERABLES Fin al Result [facility] LAB [address] [place] [address], * (ABNORMAL) Complete blood count (07/29/2024 6:56 AM EST) WBC 3.6(L) 4.8 - 10.8 K/mcL LAB HEMETOLOGY METHOD 07/29/2024 11:[address] [facility] LAB RBC 2.90(L) 3.80 - 4.80 M/mcL LAB HEMETOLOGY METHOD 07/29/2024 11:[address] [facility] LAB Hemoglobin 10.0(L) 11.5 - 16.0 g/dL LAB HEMETOLOGY METHOD 07/29/2024 11:[address] [facility] LAB Hematocrit 32.1(L) 35.0 - 47.0 % LAB HEMETOLOGY METHOD 07/29/2024 11:[address] [facility] LAB MCV 111.8(H) 79.0 - 98.0 FL LAB HEMETOLOGY METHOD 07/29/2024 11:[address] [facility] LAB MCH 34.8(H) 27.0 - 32.0 pcg LAB HEMETOLOGY METHOD 07/29/2024 11:[address] [facility] LAB MCHC 31.2(L) 32.0 - 37.0 g/dL LAB HEMETOLOGY METHOD 07/29/2024 11:[address] [facility] LAB RDW 18.5(H) 11.0 - 15.0 % LAB HEMETOLOGY METHOD 07/29/2024 11:[address] [facility] LAB Platelets 195 130 - 400 K/[facility] LAB HEMETOLOGY METHOD 07/29/2024 11:[address] [facility] LAB MPV 10.6 7.0 - 11.0 FL LAB HEMETOLOGY METHOD 07/29/2024 11:[address] [facility] LAB NRBC 0.0 <1.0 % LAB HEMETOLOGY METHOD 07/29/2024 11:[address] [facility] LAB NRBC Absolute 0.00 <0.10 K/mcL LAB HEMETOLOGY METHOD 07/29/2024 11:03 AM EST [facility] LAB Blood Venous blood specimen / Unknown Venipuncture / Unknown 07/29/2024 6:56 AM EST 07/29/2024 10:28 AM EST us Doris Vázquez MD LAB BLOOD ORDERABLES Fin al Result [facility] LAB [address] [place] [address], documented in this encounter Visit Diagnoses Diagnosis Gastro-esophageal reflux disease with esophagitis, without bleeding Essential (primary) hypertension Unspecified essential hypertension documented in this encounter Care Teams Instrument Technician Helper Relationship Specialty Start Date End Date Doris Vázquez MD [address] [place] [phone] PCP - General Family Medicine 08/01/24 documented as of this encounter
--- OUTSIDE RECORDS SUMMARY | 2025-01-05 14:06 | XMS_ITS | Encounter Summary ---
Author Organization [facility] Address [address] [place] [address] Care Team Providers Care Equipment Planner Name Role Phone Doris Vázquez MD Primary Care Provider + Encounter Details Date Type Department Care Team (Late st Contact Info) Description 10/17/2024 Lab Requisition [facility] - Main Lab 299 [facility] [place] [address] Doris Vázquez MD [address] [id number] Essential (primary) hypertension; Anemia, unspecified Social History Tobacco Use Types Packs/Day Years Used Date Smoking Tobacco: Never Assessed Comments Unknown Sex and Gender Information Value Date Recorded Sex Assigned at Not on file Legal Sex Female 2:46 AM EST Gender Identity Not on file Sexual Orientation Not on file documented as of this encounter Plan of Treatment Not on file documented as of this encounter Visit Diagnoses Diagnosis Essential (primary) hypertension Unspecified essential hypertension Anemia, unspecified documented in this encounter Care Teams Equipment Planner Relationship Specialty Start Date End Date Doris Vázquez MD [address] [phone] PCP - General Family Medicine 08/01/24 documented as of this encounter
--- OUTSIDE RECORDS SUMMARY | 2025-01-05 14:06 | XMS_ITS | Clinical Summary ---
Author Organization 299 [facility] Address [address] [place] [address] Phone Care Team Providers Care Network Control Supervisor Name Role Phone Doris Vázquez MD Primary Care Provider + Encounters Date Type Department Care Team Description 10/17/2024 Lab Requisition [facility] - Main Lab [address] [place] [address] Doris Vázquez MD Essential (primary) hypertension; Anemia, unspecified from Last 3 Months Social History Tobacco Use Types Packs/Day Years Used Date Smoking Tobacco: Never Assessed Comments Unknown Sex and Gender Information Value Date Recorded Sex Assigned at Not on file Legal Sex Female 2:46 AM EST Gender Identity Not on file Sexual Orientation Not on file Plan of Treatment Health Maintenance Due Date Last Done Comments DTaP,Tdap,and Td Vaccines (1 - Tdap) 01/01/1959 Pneumococcal Vaccine: 50+ Years (1 of 1 - PCV) 01/01/1990 Zoster Vaccines (1 of 2) 01/01/1990 RSV Immunization Adult Patients (1 - 1-dose 75+ series) 01/01/2015 COVID-19 Vaccine ( season) 2024 Cholesterol Screening (Lipid Panel) 08/01/2024 Depression Screening 08/01/2024 Falls Risk Assessment 08/01/2024 Medicare Annual Wellness Visit 08/01/2024 Osteoporosis Screening (Bone Density Screening) 08/01/2024 Social Influencers of Health Screening 08/01/2024 Influenza Vaccine (Season Ended) 2025 Hypertension/CHF/CAD Annual BMP Blood Test 09/16/2025 09/16/2024, 09/13/2024, 09/09/2024, Additional history exists HIB Vaccines Aged Out No longer eligi ble based on patient's age to complete this topic HPV Vaccines Aged Out No longer eligi ble based on patient's age to complete this topic Hepatitis A Vaccines Aged Out No long er eligible based on patient's age to complete this topic Hepatitis B Vaccines Aged Out No long er eligible based on patient's age to complete this topic IPV Vaccines Aged Out No longer eligi ble based on patient's age to complete this topic MMR Vaccines Aged Out No longer eligi ble based on patient's age to complete this topic Meningococcal ACWY Vaccine Aged Out N o longer eligible based on patient's age to complete this topic Meningococcal B Vaccine Aged Out No l onger eligible based on patient's age to complete this topic RSV Immunization Patients Under 20 months Aged Out No longer eligible based on patient's age to complete this topic Varicella Vaccines Aged Out No longer eligible based on patient's age to complete this topic Procedures Procedure Name Priority Date/Time Associated Diagnosis Comments BASIC METABOLIC PANEL Routine 09/16/2024 6:40 AM EST Gastro-esophageal reflux disease with esophagitis, without bleeding Essential (primary) hypertension from Last 3 Months or Most Recently Relevant to Health Maintenance Results * Basic metabolic panel (09/16/2024 6:40 AM [...] LAB CHEMISTRY METHOD 09/16/2024 10:29 AM EST [facility] LAB eGFR 89 >=60 mL/min/1. 73m2 LAB [...] 6:40 AM EST 09/16/2024 9:41 AM EST Doris Vázquez MD LAB BLOOD ORDERABLES Fin al Result [facility] LAB [address] [place] [address], from Last 3 Months or Most Recently Relevant to Health Maintenance Insurance MEDICARE [employer]ARE [employer]VANTAGE Care Teams Network Control Supervisor Relationship Specialty Start Date End Date Doris Vázquez MD [address] [address] PCP - General Family Medicine 08/01/24
--- OUTSIDE RECORDS SUMMARY | 2025-01-05 14:06 | XMS_ITS | Encounter Summary ---
Author Organization [facility] Address [address] [place] [address] Care Team Providers Care Dot Etcher Apprentice Name Role Phone Doris Vázquez MD Primary Care Provider + Encounter Details Date Type Department Care Team (Late st Contact Info) Description 09/08/2024 Lab Requisition [facility] - Main Lab 299 [facility] [place] [address] Doris Vázquez MD [address] [address] Gastro-esophageal reflux disease with esophagitis, [...] Associated Diagnosis Comments COMPLETE BLOOD COUNT Routine 09/09/2024 6:06 AM EST Gastro-esophageal reflux disease with esophagitis, without bleeding Essential (primary) hypertension BASIC METABOLIC PANEL Routine 09/09/2024 6:06 AM EST Gastro-esophageal reflux disease with esophagitis, without bleeding Essential (primary) hypertension documented in this encounter Results * Basic metabolic panel (09/09/2024 6:06 AM EST) Sodium 142 133 - 145 mmol/L LAB CHEMISTRY METHOD 09/09/2024 9:50 AM EST [facility] Potassium 4.0 3.5 - 5.5 mmol/L LAB CHEMISTRY METHOD 09/09/2024 9:50 AM [facility] LAB Chloride 106 96 - 110 mmol/L LAB CHEMISTRY METHOD 09/09/2024 9:50 AM [facility] LAB CO2 28 21 - 32 mmol/L LAB CHEMISTRY METHOD 09/09/2024 9:50 AM [facility] LAB Anion Gap 8 3 - 11 LAB CHEMISTRY METHOD 09/09/2024 9:50 AM [facility] LAB Glucose 93 70 - 100 mg/dL LAB CHEMISTRY METHOD 09/09/2024 9:50 AM [facility] LAB BUN 9 5 - 25 mg/dL LAB CHEMISTRY METHOD 09/09/2024 9:50 AM [facility] LAB Creatinine 0.60 0.50 - 1.10 mg/dL LAB CHEMISTRY METHOD 09/09/2024 9:50 AM [facility] LAB eGFR 89 >=60 mL/min/1. 73m2 LAB CHEMISTRY METHOD 09/09/2024 9:50 AM [facility] LAB Comment:Calculation based on the??Chronic Kidney Disease Epidemiology Collaboration (CKD-EPI) equation refit??without adjustment for race. BUN/Creatinine Ratio 15.0 LAB CHEMISTRY METHOD 09/09/2024 9:50 AM [facility] LAB Calcium 9.0 8.5 - 10.5 mg/dL LAB CHEMISTRY METHOD 09/09/2024 9:50 AM [facility] LAB Blood Venous blood specimen / Unknown Venipuncture / Unknown 09/09/2024 6:06 AM EST 09/09/2024 9:06 AM EST us Doris Vázquez MD LAB BLOOD ORDERABLES Fin al Result [facility] LAB [address] [place] [address], * (ABNORMAL) Complete blood count (09/09/2024 6:06 AM EST) WBC 5.4 4.8 - 10.8 K/mcL LAB HEMETOLOGY METHOD 09/09/2024 9:28 AM [facility] LAB RBC 3.20(L) 3.80 - 4.80 M/mcL LAB HEMETOLOGY METHOD 09/09/2024 9:28 AM [facility] LAB Hemoglobin 10.6(L) 11.5 - 16.0 g/dL LAB HEMETOLOGY METHOD 09/09/2024 9:28 AM [facility] LAB Hematocrit 33.5(L) 35.0 - 47.0 % LAB HEMETOLOGY METHOD 09/09/2024 9:28 AM [facility] LAB MCV 105.3(H) 79.0 - 98.0 FL LAB HEMETOLOGY METHOD 09/09/2024 9:28 AM [facility] LAB MCH 33.3(H) 27.0 - 32.0 pcg LAB HEMETOLOGY METHOD 09/09/2024 9:28 AM [facility] LAB MCHC 31.6(L) 32.0 - 37.0 g/dL LAB HEMETOLOGY METHOD 09/09/2024 9:28 AM [facility] LAB RDW 14.6 11.0 - 15.0 % LAB HEMETOLOGY METHOD 09/09/2024 9:28 AM [facility] LAB Platelets 270 130 - 400 K/mcL LAB HEMETOLOGY METHOD 09/09/2024 9:28 AM [facility] LAB MPV 9.7 7.0 - 11.0 FL LAB HEMETOLOGY METHOD 09/09/2024 9:28 AM [facility] LAB NRBC 0.0 <1.0 % LAB HEMETOLOGY METHOD 09/09/2024 9:28 AM [facility] LAB NRBC Absolute 0.00 <0.10 K/mcL LAB HEMETOLOGY METHOD 09/09/2024 9:28 AM [facility] LAB Blood Venous blood specimen / Unknown Venipuncture / Unknown 09/09/2024 6:06 AM EST 09/09/2024 9:06 AM EST Doris Vázquez MD LAB BLOOD ORDERABLES Fin al Result [facility] LAB [address] [place] [address], documented in this encounter Visit Diagnoses Diagnosis Gastro-esophageal reflux disease with esophagitis, without bleeding Essential (primary) hypertension Unspecified essential hypertension documented in this encounter Care Teams Dot Etcher Apprentice Relationship Specialty Start Date End Date Doris Vázquez MD [address] [place] [id number] PCP - General Family Medicine 08/01/24 documented as of this encounter
--- OUTSIDE RECORDS SUMMARY | 2025-01-05 14:06 | XMS_ITS ---
Author Organization [facility] Address [address] [place] [address] Care Team Providers Care Graduate Rn Name Role Phone Kaiden GORDON, Amaya Walton Primary Care Provider Un available Adore Marks [phone] Encounters Encounter Location Date Provider Diagnosis [facility] [address] [place] [address] 10/07/2024 Adore Marks Plan Of Treatment No Information Progress Notes * Doris LEIGH FDOB:1940 ([age] yo F)Acc No.[id number]:10/07/2024 Progress Note Patient:?Doris LEIGH Provider:?Adore Marks DPM :1940???Age:84 Y???Sex:Female D ate:10/07/2024 Address:[address] [place], [place] [id number] Pcp:Asher Jenkins Subjective: * Chief Complaints: * ??? * Medical History:? Objective: * Vitals:? Assessment: Plan: * Treatment: * Images: * The named appointment provid er may or may not be the originator of this progress note, and it is not deemed complete until electronically signed by the appointment provider. Sign off status: Pending * Provider:?Adore Marks DPM Date:?2024 Generated for Printi debbie/Facuongg/eTransmitting on:?01/05/2025 02:06 PM EDT
--- OUTSIDE RECORDS SUMMARY | 2025-01-05 14:06 | XMS_ITS | Encounter Summary ---
Author Organization [facility] Address [address] [place] [address] Care Team Providers Care Cinder Crane Operator Name Role Phone Doris Vázquez MD Primary Care Provider + Encounter Details Date Type Department Care Team (Late st Contact Info) Description 09/17/2024 Lab Requisition [facility] - Main Lab 299 [facility] [place] [address] Doris Vázquez MD [address] [address] Gastro-esophageal reflux disease with esophagitis, without bleeding; [...] as of this encounter Visit Diagnoses Diagnosis Gastro-esophageal reflux disease with esophagitis, without bleeding Essential (primary) hypertension Unspecified essential hypertension documented in this encounter Care Teams Cinder Crane Operator Relationship Specialty Start Date End Date Doris Vázquez MD [address] [address] PCP - General Family Medicine 08/01/24 documented as of this encounter
--- OUTSIDE RECORDS SUMMARY | 2025-01-05 14:06 | XMS_ITS | Encounter Summary ---
Author Organization [facility] Address [address] [place] [address] Care Team Providers Care Panel Edge Sealer Name Role Phone Doris áVzquez MD Primary Care Provider + Encounter Details Date Type Department Care Team (Late st Contact Info) Description 08/25/2024 Lab Requisition [facility] - Main Lab [address] [place] [address] Doris Vázquez MD [address] [address] Gastro-esophageal reflux disease with esophagitis, [...] Associated Diagnosis Comments COMPLETE BLOOD COUNT Routine 08/26/2024 6:38 AM EST Gastro-esophageal reflux disease with esophagitis, without bleeding Essential (primary) hypertension BASIC METABOLIC PANEL Routine 08/26/2024 6:38 AM EST Gastro-esophageal reflux disease with esophagitis, without bleeding Essential (primary) hypertension documented in this encounter Results * (ABNORMAL) Basic metabolic panel (08/26/2024 6:38 AM EST) Sodium 138 133 - 145 mmol/L LAB CHEMISTRY METHOD 08/26/2024 11:40 AM EST [facility] Potassium 3.9 3.5 - 5.5 mmol/L LAB CHEMISTRY METHOD 08/26/2024 11:40 AM [facility] LAB Chloride 104 96 - 110 mmol/L LAB CHEMISTRY METHOD 08/26/2024 11:40 AM [facility] LAB CO2 28 21 - 32 mmol/L LAB CHEMISTRY METHOD 08/26/2024 11:40 AM [facility] LAB Anion Gap 6 3 - 11 LAB CHEMISTRY METHOD 08/26/2024 11:40 AM [facility] LAB Glucose 96 70 - 100 mg/dL LAB CHEMISTRY METHOD 08/26/2024 11:40 AM [facility] LAB BUN 6 5 - 25 mg/dL LAB CHEMISTRY METHOD 08/26/2024 11:40 AM [facility] LAB Creatinine 0.49(L) 0.50 - 1.10 mg/dL LAB CHEMISTRY METHOD 08/26/2024 11:40 AM [facility] LAB eGFR 93 >=60 mL/min/1. 73m2 LAB CHEMISTRY METHOD 08/26/2024 11:40 AM [facility] LAB Comment:Calculation based on the??Chronic Kidney Disease Epidemiology Collaboration (CKD-EPI) equation refit??without adjustment for race. BUN/Creatinine Ratio 12.2 LAB CHEMISTRY METHOD 08/26/2024 11:40 AM [facility] LAB Calcium 9.2 8.5 - 10.5 mg/dL LAB CHEMISTRY METHOD 08/26/2024 11:40 AM [facility] LAB Blood Venous blood specimen / Unknown Venipuncture / Unknown 08/26/2024 6:38 AM EST 08/26/2024 10:50 AM EST us Doris Vázquez MD LAB BLOOD ORDERABLES Fin al Result [facility] [address] [place] [address], * (ABNORMAL) Complete blood count (08/26/2024 6:38 AM EST) WBC 6.3 4.8 - 10.8 K/mcL LAB HEMETOLOGY METHOD 08/26/2024 11:24 AM [facility] LAB RBC 3.00(L) 3.80 - 4.80 M/[facility] LAB HEMETOLOGY METHOD 08/26/2024 11:24 AM [facility] LAB Hemoglobin 10.3(L) 11.5 - 16.0 g/dL LAB HEMETOLOGY METHOD 08/26/2024 11:24 AM [facility] LAB Hematocrit 31.6(L) 35.0 - 47.0 % LAB HEMETOLOGY METHOD 08/26/2024 11:24 AM [facility] LAB MCV 106.8(H) 79.0 - 98.0 FL LAB HEMETOLOGY METHOD 08/26/2024 11:24 AM [facility] LAB MCH 34.8(H) 27.0 - 32.0 pcg LAB HEMETOLOGY METHOD 08/26/2024 11:24 AM [facility] LAB MCHC 32.6 32.0 - 37.0 g/dL LAB HEMETOLOGY METHOD 08/26/2024 11:24 AM [facility] LAB RDW 14.0 11.0 - 15.0 % LAB HEMETOLOGY METHOD 08/26/2024 11:24 AM [facility] LAB Platelets 260 130 - 400 K/[facility] LAB HEMETOLOGY METHOD 08/26/2024 11:24 AM [facility] LAB MPV 10.0 7.0 - 11.0 FL LAB HEMETOLOGY METHOD 08/26/2024 11:24 AM [facility] LAB NRBC 0.0 <1.0 % LAB HEMETOLOGY METHOD 08/26/2024 11:24 AM [facility] LAB NRBC Absolute 0.00 <0.10 K/[facility] LAB HEMETOLOGY METHOD 08/26/2024 11:24 AM [facility] LAB Blood Venous blood specimen / Unknown Venipuncture / Unknown 08/26/2024 6:38 AM EST 08/26/2024 11:03 AM EST Doris Vázquez MD LAB BLOOD ORDERABLES Fin al [facility] [address] [place] [address], documented in this encounter Visit Diagnoses Diagnosis Gastro-esophageal reflux disease with esophagitis, without bleeding Essential (primary) hypertension Unspecified essential hypertension documented in this encounter Care Teams Panel Edge Sealer Relationship Specialty Start Date End Date Doris Vázquez MD [address] [place] [address] PCP - General Family Medicine 08/01/24 documented as of this encounter
== END 2025-01-05 13:34 | disposition home or self-care (01) ==
LOC: HO.HMCC 11:37
PROVIDERS: PCP Internal Medicine; Visit Provider Internal Medicine
DX: I10 Essential (primary) hypertension (principal); E78.5 Hyperlipidemia, unspecified; M06.9 Rheumatoid arthritis, unspecified; E03.9 Hypothyroidism, unspecified; Z87.81 Personal history of (healed) traumatic fracture

== ENCOUNTER → 2025-01-05 11:37 | Outpatient (BNVA) | payer MEDICARE, OTHER, SELFPAY | PROVIDERS: PCP Internal Medicine; Visit Provider Internal Medicine | DX: I10 Essential (primary) hypertension (principal); E78.5 Hyperlipidemia, unspecified; E03.9 Hypothyroidism, unspecified; M06.9 Rheumatoid arthritis, unspecified; Z79.631 Long term (current) use of antimetabolite agent; Z79.899 Other long term (current) drug therapy; Z87.81 Personal history of (healed) traumatic fracture | CPT/HCPCS: 99212 ==

== ENCOUNTER 2025-03-07 11:23 | Outpatient (AMB) | payer MEDICARE, OTHER, SELFPAY ==
[2025-03-07 11:25] VITALS: BP 156/82; PULSE 84; TEMP 36.6; O2SAT 97; BMI 33.2
--- NOTE | 2025-03-07 11:25 | AM.OFFWIN_ITS ---
Intake Vital Signs 03/07/25 11:25 Height 5 ft 3 in Weight 187 lb 4 oz BMI 33.2 BP 156/82 H Blood Pressure Location Lt brachial Position Sitting Pulse 84 Pulse Source Pulse Oximeter Temp 98 F Temp Source Oral Pulse Oximetry (%) 97 Oxygen Delivery Method Room Air Intake Visit Reasons: EP small cut on LT leg, leaking clear fluid Patient Tobacco Use Status: Never used Tobacco Allergies Penicillins [PENICILLINS] Allergy (Unknown, Verified 03/07/25 11:31) RASH aspirin Adverse Reaction (Unknown, Verified 03/07/25 11:31) GI BLEED lactose Adverse Reaction (Unknown, Verified 03/07/25 11:31) DIARRHEA Do you need a note to return to daycare/school/sports/work: No HPI HPI Comments History of Present Illness Details History - The patient is an 85-year-old female p resenting with evaluation of leg laceration with persistent fluid leakage. - The laceration occurred approximately one week ago when a book fell and cut h er leg. - Since the incident, the wound has been leaking clear fluid, which has been persistent and bothersome. - Has been using silver nitrite dressing daily on the wound. - Denies hx of diabetes. - The patient reports bilateral leg swel ling, which is attributed to a recent right leg fracture. - She has a history of rheumatoid arthri tis, which complicates the use of compression stockings so she does not use them. - The patient underwent rehabilitation f or three months following the fracture, during which she was unable to bear weight on the affected leg. Ambulates well with a walker now. Physical Exam Physical Exam General: Cooperative, healthy appearing, comfortable, no acute distress and well developed Orientation: Patient oriented x3 Limitations: ambulating with walker Head: Normal to inspection Ears: Hearing grossly normal bilaterally Nose: Normal External nose present Face and sinus: Normal facial exam Mouth: normal, moist oral mucosa Eyes: Appearance normal, both eyes and all related structures Neck: Normal visual inspection and Yes full ROM Respiratory: Normal respiratory effort and able to speak in complete sentences. Skin: as below Neuro: Patient oriented x3 Extremities: Moving all extremities normally, but noted swelling in both legs, 1+ pitting edema in Left LE with mid shelton 1cm v shaped laceration which is superficial and leaking serous fluid, no warmth, no purulent drainage or erythema. [facility] Medical History (Updated 03/07/25 @ 11:56 by Sharlene Sharma PA-C) History of femur fracture Impaired fasting glucose Vitamin D deficiency Menopause Herpes zoster Nummular dermatitis Gastric ulcer Osteoarthritis GERD (gastroesophageal reflux disease) Acquired hypothyroidism Dyslipidemia Essential hypertension Rheumatoid arthritis Surgical History (Updated 01/10/25 @ 01:39 by Amaya Richey MD) History of open reduction and internal fixation (ORIF) procedure History of cataract History of total hip replacement History of total left knee replacement (TKR) Family History Father Cirrhosis Mother No problems noted. Daughter Substance use disorder Mental health disorder Social History Housing: House Alcohol intake: never Patient Tobacco Use Status: Never used Tobacco e-Cigarette/Vaping Use: Never Used service: No Current occupational status: retired Cognitive needs: No Hearing needs: No Vision needs: Yes Review of Systems Const All systems reviewed & are unremarkable except as noted in HPI and below Physical Exam Vital Signs: Last Vital Signs Temp 98 F 03/07/25 11:25 Pulse 84 03/07/25 11:25 BP 156/82 H 03/07/25 11:25 Pulse Ox 97 03/07/25 11:25 Oxygen Delivery Method Room Air 03/07/25 11:25 BMI result Body Mass Index 33.2 Assessment & Plan Assessment & Plan (1) Laceration of leg: Code(s): S81.819A - Laceration without foreign body, unspecified lower leg, initial encounter Qualifiers: Encounter type: initial encounter Laterality: left Qualified Code(s): S81.812A - Laceration without foreign body, left lower leg, initial encounter Plan: 1. Leg Laceration With Serous Fluid Leakage - Wound not infected however it is also not healing, there is no scab. - Apply slight pressure dressing to manage fluid leakage and promote healing. - Avoid use of the silver nitrite antimicrobial dressings as they may delay healing. - Monitor for signs of infection and return for follow-up if no improvement in 4-5 days. Coding Level of Care Code Est Pt Level 3 (39977) Diagnoses Laceration of left lower extremity, initial encounter S81.812A Encounter type: initial encounter Laterality: left
--- OUTSIDE RECORDS SUMMARY | 2025-03-07 12:58 | XMS_ITS | Encounter Summary ---
Author Organization [facility] Address [address] [place] [address] Care Team Providers Care Business Supervisor Name Role Phone Doris Vázquez MD Primary Care Provider + Encounter Details Date Type Department Care Team (Late st Contact Info) Description 08/11/2024 Lab Requisition [facility] - Main Lab [address] [facility] [place] [address] Doris Vázquez MD [address] [address] Gastro-esophageal reflux disease with esophagitis, [...] LAB CHEMISTRY METHOD 08/12/2024 10:41 AM EST [facility] Potassium 4.0 3.5 - 5.5 mmol/L LAB CHEMISTRY METHOD 08/12/2024 10:41 AM [facility] LAB Chloride 107 96 - 110 mmol/L LAB CHEMISTRY METHOD 08/12/2024 10:41 AM [facility] LAB CO2 28 21 - 32 mmol/L LAB CHEMISTRY METHOD 08/12/2024 10:41 AM [facility] LAB Anion Gap 6 3 - 11 LAB CHEMISTRY METHOD 08/12/2024 10:41 AM [facility] LAB Glucose 92 70 - 100 mg/dL LAB CHEMISTRY METHOD 08/12/2024 10:41 AM [facility] LAB BUN 7 5 - 25 mg/dL LAB CHEMISTRY METHOD 08/12/2024 10:41 AM [facility] LAB Creatinine 0.62 0.50 - 1.10 mg/dL LAB CHEMISTRY METHOD 08/12/2024 10:41 AM [facility] LAB eGFR 88 >=60 mL/min/1. 73m2 LAB CHEMISTRY METHOD 08/12/2024 10:41 AM [facility] LAB Comment:Calculation based on the??Chronic Kidney Disease Epidemiology Collaboration (CKD-EPI) equation refit??without adjustment for race. BUN/Creatinine Ratio 11.3 LAB CHEMISTRY METHOD 08/12/2024 10:41 AM [facility] LAB Calcium 9.0 8.5 - 10.5 mg/dL LAB CHEMISTRY METHOD 08/12/2024 10:41 AM [facility] LAB Blood Venous blood specimen / Unknown Venipuncture / Unknown 08/12/2024 7:03 AM EST 08/12/2024 9:40 AM EST us Doris Vázquez MD LAB BLOOD ORDERABLES Fin al Result [facility] [address] [place] [address], * (ABNORMAL) Complete blood count (08/12/2024 7:03 AM EST) WBC 5.9 4.8 - 10.8 K/mcL LAB HEMETOLOGY METHOD 08/12/2024 10:15 AM [facility] LAB RBC 2.90(L) 3.80 - 4.80 M/mcL LAB HEMETOLOGY METHOD 08/12/2024 10:15 AM [facility] LAB Hemoglobin 10.4(L) 11.5 - 16.0 g/dL LAB HEMETOLOGY METHOD 08/12/2024 10:15 AM [facility] LAB Hematocrit 32.3(L) 35.0 - 47.0 % LAB HEMETOLOGY METHOD 08/12/2024 10:15 AM [facility] LAB MCV 112.2(H) 79.0 - 98.0 FL LAB HEMETOLOGY METHOD 08/12/2024 10:15 AM [facility] LAB MCH 36.1(H) 27.0 - 32.0 pcg LAB HEMETOLOGY METHOD 08/12/2024 10:15 AM [facility] LAB MCHC 32.2 32.0 - 37.0 g/dL LAB HEMETOLOGY METHOD 08/12/2024 10:15 AM [facility] LAB RDW 15.5(H) 11.0 - 15.0 % LAB HEMETOLOGY METHOD 08/12/2024 10:15 AM [facility] LAB Platelets 150 130 - 400 K/mcL LAB HEMETOLOGY METHOD 08/12/2024 10:15 AM [facility] LAB MPV 11.4(H) 7.0 - 11.0 FL LAB HEMETOLOGY METHOD 08/12/2024 10:15 AM [facility] LAB NRBC 0.0 <1.0 % LAB HEMETOLOGY METHOD 08/12/2024 10:15 AM [facility] LAB NRBC Absolute 0.00 <0.10 K/mcL LAB HEMETOLOGY METHOD 08/12/2024 10:15 AM [facility] Blood Venous blood specimen / Unknown Venipuncture / Unknown 08/12/2024 7:03 AM EST 08/12/2024 9:40 AM EST Doris Vázquez MD LAB BLOOD ORDERABLES Fin al Result [facility] [address] [place] [address], documented in this encounter Visit Diagnoses Diagnosis Gastro-esophageal reflux disease with esophagitis, without bleeding Essential (primary) hypertension Unspecified essential hypertension documented in this encounter Care Teams Business Supervisor Relationship Specialty Start Date End Date Doris Vázquez MD [address] [place] [id number] PCP - General Family Medicine 08/01/24 documented as of this encounter
== END 2025-03-07 12:06 | disposition home or self-care (01) ==
PROVIDERS: PCP Internal Medicine; Visit Provider Physician Assistant
DX: S81.812A Laceration without foreign body, left lower leg, initial encounter (principal)

== ENCOUNTER → 2025-03-07 11:23 | Outpatient (BNVA) | payer MEDICARE, OTHER, SELFPAY | PROVIDERS: PCP Internal Medicine; Visit Provider Physician Assistant | DX: S81.812A Laceration without foreign body, left lower leg, initial encounter (principal) | CPT/HCPCS: 99212 ==

== ENCOUNTER 2025-04-29 12:17 | Outpatient (AMB) | payer MEDICARE, OTHER, SELFPAY ==
--- OUTSIDE RECORDS SUMMARY | 2024-10-07 07:15 | XMS_ITS ---
Author Organization [facility] Address [address] [place] [address] Care Team Providers Care Automatic Hemmer Name Role Phone Kaiden GORDON, Amaya Walton Primary Care Provider Un available Adore Marks [phone] Encounters Encounter Location Date Provider Diagnosis [facility] [address] [place] [address] 10/07/2024 Adore Kendrick Plan Of Treatment No Information Progress Notes * Doris LEIGH FDOB:1940 ([age] yo F)Acc No.[id number]:10/07/2024 Progress Note Patient: Kelly BRUNSONDoris Provider: Kendra Marks DPM :1940 A ge:84 Y S ex:Female Date:10/07/2024 Address:[address] [place] [address] [phone] Pcp:Asher Jenkins Subjective: * Chief Complaints: * * Medical History: Objective: * Vitals: Assessment: Plan: * Treatment: * Images: * The named appointment provid er may or may not be the originator of this progress note, and it is not deemed complete until electronically signed by the appointment provider. Sign off status: Pending * Provider: Kendra Marks DPM Date: 0 10/07/2024 Generated for Printi ng/Faxing/eTransmitting on: 0 04/29/2025 12:19 PM EDT
[2025-04-29 12:53] VITALS: BP 154/60; PULSE 72; TEMP 36.9; O2SAT 97; BMI 33.2
--- NOTE | 2025-04-29 12:53 | AM.OFFWIN_ITS ---
Intake Vital Signs 04/29/25 12:53 Height 5 ft 3 in Weight 187 lb 8 oz BMI 33.2 BP 154/60 H Blood Pressure Location Rt brachial Position Sitting Pulse 72 Pulse Source Pulse Oximeter Temp 98.4 F Temp Source Oral Pulse Oximetry (%) 97 Oxygen Delivery Method Room Air Intake Visit Reasons: EP-lt leg cut Patient Tobacco Use Status: Never used Tobacco Plastic Mould Maker Required: No Is last menstrual period known: No Post menopausal: Yes Patient : No Allergies Penicillins (PENICILLINS) Allergy (Unknown, Verified 04/29/25 12:59) RASH aspirin Adverse Reaction (Unknown, Verified 04/29/25 12:59) GI BLEED lactose Adverse Reaction (Unknown, Verified 04/29/25 12:59) DIARRHEA HPI HPI Comments History of Present Illness Details This is an 85-year-old female returning for re-evaluation of a left leg wound. Patient states in February she was in her living room when a heavy book fell against her left leg. Patient was previously seen here at the [facility] for ?weeping? from this wound which resolved but again recurred 2 days ago. Patient denies having any fevers, chills or redness of the site of this lesion. Patient ambulating independently with a walker. [facility] Medical History (Updated 04/29/25 @ 13:37 by Dang Jara PA-C) History of femur fracture Impaired fasting glucose Vitamin D deficiency Menopause Herpes zoster Nummular dermatitis Gastric ulcer Osteoarthritis GERD (gastroesophageal reflux disease) Acquired hypothyroidism Dyslipidemia Essential hypertension Rheumatoid arthritis Surgical History (Updated 01/10/25 @ 01:39 by Amaya Richey MD) History of open reduction and internal fixation (ORIF) procedure History of cataract History of total hip replacement History of total left knee replacement (TKR) Family History Father Cirrhosis Mother No problems noted. Daughter Substance use disorder Mental health disorder Social History Housing: House Alcohol intake: never Patient Tobacco Use Status: Never used Tobacco e-Cigarette/Vaping Use: Never Used Patient : No service: No Current occupational status: retired Cognitive needs: No Hearing needs: No Vision needs: Yes Review of Systems Const All systems reviewed & are unremarkable except as noted in HPI and below Reports as per HPI, Denies chills, Denies fever(s) and Denies malaise Skin/Breast Reports system reviewed and no additional complaints, except as documented and Reports non-healing lesions Neuro Reports no additional complaints Endo Reports no additional complaints Aller/Immun Reports no additional complaints Physical Exam Vital Signs: Last Vital Signs Temp 98.4 F 04/29/25 12:53 Pulse 72 04/29/25 12:53 BP 154/60 H 04/29/25 12:53 Pulse Ox 97 04/29/25 12:53 Oxygen Delivery Method Room Air 04/29/25 12:53 BMI result Body Mass Index 33.2 Patient is afebrile. Const General: cooperative, comfortable, no acute distress, well developed, alert, awake and Physically active; No ill appearing Nutritional Appearance: overweight Orientation/consciousness: patient oriented x3 Limitations: no limitations Skin Other: There are two surface abrasions on the left distal lower extremity overlying the tibia with surrounding erythematous maculopapular eruption. There is serous drainage. Lesion is non.tender, there is no purulent discharge or warmth to touch. Neuro General: patient oriented x3 Extrem Other: no left calf tenderness, passive ROM left knee and left ankle intact Psych Appearance: grossly normal Mental Status: mental status grossly normal Affect: normal affect Attitude: cooperative Insight: Good insight present (Psych) Judgement: Good judgement present (Psych) Assessment & Plan Assessment & Plan (1) Chronic wound: Comment: Patient's findings are consistent with a chronic wound of the left lower extremity. Wound care referral will be placed. There is no clinical indication for antibiotic therapy at this time. Lesion is cleansed with Betadine and dressed with a nonstick gauze, Kerlix and Coban. Patient is encouraged to keep her left leg elevated while at rest. Code(s): T14.8XXA - Other injury of unspecified body region, initial encounter Plan: Change dressing on Friday, wound care referral placed, elevate lower extremities while at rest. Patient is educated on return precautions including fevers, chills, increased redness, purulent discharge or increased pain. Orders: Referrals Wound Care Referral T14.8XXA - Other injury of unspecified body region, initial encounter Coding Level of Care Code Est Pt Level 3 (44712) Diagnoses Chronic wound T14.8XXA Time Spent (min) 22
== END 2025-04-29 13:52 | disposition home or self-care (01) ==
PROVIDERS: PCP Internal Medicine; Visit Provider Physician Assistant
DX: T14.8XXA Other injury of unspecified body region, initial encounter (principal)

== ENCOUNTER → 2025-04-29 12:17 | Outpatient (BNVA) | payer MEDICARE, OTHER, SELFPAY | PROVIDERS: PCP Internal Medicine; Visit Provider Physician Assistant | DX: S89.92XD Unspecified injury of left lower leg, subsequent encounter (principal) | CPT/HCPCS: 99212 ==

== ENCOUNTER 2025-07-20 08:17 | Outpatient (REF) | payer MEDICARE, OTHER, SELFPAY ==
[2025-07-20 10:24] LABS: Alanine Aminotransferase 18 U/L (0-31); Anion Gap 10 (12-20); Aspartate Amino Transferase 23 U/L (5-31); Blood Urea Nitrogen 13 mg/dL (9-16); Calcium 9.5 mg/dL (8.4-10.2); Carbon Dioxide 30 mmol/L (22-29); Chloride 107 mmol/L (96-108); Cholesterol 231 mg/dL (<200); Estimated Glomerular Filt Rate > 60; HDL Cholesterol 63 mg/dL (>40); Potassium 4.4 mmol/L (3.3-5.1); Sodium 143 mmol/L (135-145); Triglycerides 86 mg/dL (<150)
[2025-07-20 10:42] LABS: Free T4 (Free Thyroxine) 1.38 ng/dL (0.71-1.85); Thyroid Stimulating Hormone 7.13 uIU/mL (0.32-4.0)
== END 2025-07-20 08:18 | disposition home or self-care (01) ==
LOC: HO.HMGCLDS 08:17
PROVIDERS: PCP Internal Medicine; Visit Provider Internal Medicine
DX: I10 Essential (primary) hypertension (principal); E03.9 Hypothyroidism, unspecified; E78.5 Hyperlipidemia, unspecified; R73.01 Impaired fasting glucose; Z78.0 Asymptomatic menopausal state; Z13.21 Encounter for screening for nutritional disorder
CPT/HCPCS: 36415; 80048; 80061; 82306; 84439; 84443; 84450; 84460

== ENCOUNTER → 2025-07-29 14:04 | Outpatient (BNVA) | payer MEDICARE, OTHER, SELFPAY | PROVIDERS: PCP Internal Medicine | DX: Z01.30 Encounter for examination of blood pressure without abnormal findings (principal) | CPT/HCPCS: 99211 ==

== ENCOUNTER 2025-08-16 11:16 | Outpatient (AMB) | payer MEDICARE, OTHER, SELFPAY ==
--- OUTSIDE RECORDS SUMMARY | 2024-08-05 06:15 | XMS_ITS ---
Author Organization [facility] Address [address] [place] [address] Care Team Providers Care Winding Machine Operator Name Role Phone Kaiden GORDON, Amaya Walton Primary Care Provider Un available Adore Marks [phone] Encounters Encounter Location Date Provider Diagnosis [facility] [address] [place] [address] 08/05/2024 Adore Marks Plan Of Treatment Next Appt Details Provider Name:Adore Marks , 10/06/2025 10:00:00 AM, [address] [place], [address], Progress Notes * Doris LEIGH FDOB:1940 ([age] yo F)Acc No.[id number]:08/05/2024 Progress Note Patient: Kelly BRUNSON Doris Rubén Provider: Kendra Marks DPM :1940 A ge:84 Y S ex:Female Date:08/05/2024 Address:[address] [place], [place] [id number] Pcp:Asher Jenkins Subjective: * Chief Complaints: * * Medical History: Objective: * Vitals: Assessment: Plan: * Treatment: * Images: * The named appointment provid er may or may not be the originator of this progress note, and it is not deemed complete until electronically signed by the appointment provider. Sign off status: Pending * Provider: Kendra Marks DPM Date: 10/05/2023 Generated for Eric lewis/Demi/Elbert on: 10/16/2024 02:57 PM EST
--- OUTSIDE RECORDS SUMMARY | 2024-10-07 06:15 | XMS_ITS ---
Author Organization [facility] Address [address] [place] [address] Care Team Providers Care Medical Secretary Teacher Name Role Phone Kaiden GORDON, Amaya Walton Primary Care Provider Un available Adore Marks [phone] Encounters Encounter Location Date Provider Diagnosis [facility] [address] [place] [address] 10/07/2024 Adore Marks Plan Of Treatment Next Appt Details Provider Name:Adore Marks , 10/06/2025 10:00:00 AM, [address] [place], [address], Progress Notes * Doris LEIGH FDOB:1940 ([age] yo F)Acc No.[id number]:10/07/2024 Progress Note Patient: Kelly BRUNSON Doris Rubén Provider: Kendra Marks DPM :1940 A ge:84 Y S ex:Female Date:10/07/2024 Address:[address] [place], [place] [phone] Pcp:Asher Jenkins Subjective: * Chief Complaints: * * Medical History: Objective: * Vitals: Assessment: Plan: * Treatment: * Images: * The named appointment provid er may or may not be the originator of this progress note, and it is not deemed complete until electronically signed by the appointment provider. Sign off status: Pending * Provider: Kendra Marks DPM Date: 0 10/07/2024 Generated for Eric lewis/Demi/Elbert on: 1 10/16/2024 02:57 PM EST
--- NOTE | 2025-08-16 11:47 | A.OFFVIS_ITS ---
Intake Vital Signs 08/16/25 11:53 Height 5 ft 3 in Weight 190 lb BMI 33.7 BP 136/80 Blood Pressure Location Lt brachial Position Sitting Respiration 16 Pulse 63 Pulse Source Pulse Oximeter Temp 98.3 F Temp Source Oral Pulse Oximetry (%) 99 Oxygen Delivery Method Room Air Intake Visit Reasons: general health Intake Note: Pt is here today for her AWV Foam Molder Required: No Allergies Penicillins (PENICILLINS) Allergy (Unknown, Verified 08/22/25 04:27) RASH aspirin Adverse Reaction (Unknown, Verified 08/22/25 04:27) GI BLEED lactose Adverse Reaction (Unknown, Verified 08/22/25 04:27) DIARRHEA Medication List - Last Reconciled 08/16/25 by Amaya Richey MD acetaminophen (Tylenol Extra Strength) 1,000 mg (2 x 500 mg) PO QID PRN alendronate mg PO calcium carbonate 500 mg PO DAILY clotrimazole-betamethasone 1-0.05 % 1 appl topical BID 2 weeks lactase (Lactaid) 3,000 units PO QID PRN leucovorin calcium 10 mg PO Q OTHER DAY levothyroxine Frequency: qd for 6 days a week 90 days lisinopril 5 mg PO DAILY lovastatin 20 mg PO DAILY magnesium gluconate 30 mg PO DAILY methotrexate sodium 25 mg PO QWEEK playcsek-dfgysuk-xkvx-lutein tabs PO .qd nabumetone 500 mg PO BID nystatin 1 appl topical DAILY PRN omeprazole 40 mg PO DAILY tocilizumab (Actemra) IV HPI general health HPI Details SWV ? 83 year old lady with osteoarthritis, gastroesophageal reflux disease, acquired hypothyroidism, dyslipidemia, hypertension, and rheumatoid arthritis, here today for her subsequent Annual Wellness Visit.? She has been feeling well , compliant with taking her medications. She no longer gets screening mammograms , colonoscopies, cervical cancer screenings or bone density scan done . She had a fasting lipid panel and a fasting blood sugar and hemoglobin A1c done 07/20/25 which came back within normal limits except for elevated LDL cholesterol. . She received her of yearly flu sh ot this year from her electrical products sales engineer's office, and up-to-date with her pneumonia vaccine and received 1 shingles vaccine, still has to get her COVID booster. ? Medical / Social History Reviewed? Past Medical History ?Yes . ? [facility] / Care Team list updated ?Yes . ? Surgical/Hospitalization History ?Yes . ? Current Medications (including OTC and supplements) ?Yes . ? Family History ?Yes . ? Tobacco Control form ?Yes . ? AUDIT-C (Alcohol use) form ?Yes . ? Illicit drug use in Social History ?Yes . ? Current diagnosis of depression? ?No ? Appropriate PHQ2/PHQ9 completed ?Yes . ? Data entered by ?[employer] and reviewed by provider ? Fall Risk ? Fall History? Have you had any falls with injury in the past year? ?No . ? Have you had two or more falls in the past year? ?No . ? Fall Risk Assessment: ?No falls in the past year . ? HRA filled out by the patient, reviewed by Provider and scanned. ?SWV ? Balance? Romberg ?negative . ? Tandem walk ?unable . ? Walk and Turn ?Yes . ? Rise from sit to stand ?Yes . ?Vision? Corrective lens ?yes ? Vision screen ?, goes to Dr. Rausch ?Hearing? Whisper test ?pass . ?Written Plan?Completed. See Patient Documents.? [facility] Medical History History of femur fracture Impaired fasting glucose Vitamin D deficiency Menopause Herpes zoster Nummular dermatitis Gastric ulcer Osteoarthritis GERD (gastroesophageal reflux disease) Acquired hypothyroidism Dyslipidemia Essential hypertension Rheumatoid arthritis Surgical History History of open reduction and internal fixation (ORIF) procedure History of cataract History of total hip replacement History of total left knee replacement (TKR) Family History Father Cirrhosis Mother No problems noted. Daughter Substance use disorder Mental health disorder Social History Housing: House Alcohol intake: never Patient Tobacco Use Status: Never used Tobacco e-Cigarette/Vaping Use: Never Used service: No Current occupational status: retired Cognitive needs: No Hearing needs: No Vision needs: Yes Questionnaire Medicare Wellness Checkup What is your age?: 80 or older What gender do you identify with?: female During the past 4 weeks, how much have you been bothered by emotional problems such as feeling anxious, depressed, irritable, sad or downhearted, and blue?: not at all During the past 4 weeks, has your physical & emotional health limited your social activities with family, friends, neighbors, or groups?: moderately During the past 4 weeks, how much bodily pain have you generally had?: mild pain During the past 4 weeks, was someone available to help you if you needed & wanted help?: yes, a little During the past 4 weeks, what was the hardest physical activity you could do for at least 2 minutes?: light Can you get to places out of walking distance without help? (For eg., can you travel alone on buses, taxis or drive your car?): No Can you go shopping for groceries or clothes without someone's help?: No Can you prepare your own meals?: Yes Can you do your housework without help?: No Because of any health problems, do you need the help of another person with your personal care needs such as eating, bathing, dressing or getting around the house?: No Can you handle your own money without help?: Yes During the past 4 weeks, how would you rate your health in general?: good During the past 4 weeks how have things been going for you?: good & bad parts about equal Are you having difficulties driving your car?: sometimes Do you always fasten your seat belt when you are in a car?: yes, usually During past 4 weeks, have you been bothered by the following: never: Falling or dizzy when standing up, Sexual problems?, Trouble eating well? and Problems using the telephone? and seldom: Teeth or denture problems? and Tiredness or fatigue? Have you fallen 2 or more times in the past year?: No Are you afraid of falling?: No Are you a smoker?: no During the past 4 weeks, how many drinks of wine, beer, or other alcoholic b everages did you have?: no alcohol at all Do you exercise for about 20 minutes 3 or more times a week?: no, I usually do not exercise this much Have you been given information to help with the following?: yes: Hazards in your house that might hurt you? and yes: Keeping track of your medications? How often do you have trouble taking medicines the way you have been told to take them?: I always take medicine as prescribed How confident are you that you can control & manage most of your health problems?: somewhat confident What is your race?: White Mini Mental State Exam (MMSE) Orientation What is the (year) (season) (date) (day) (month)?: year (2024), season (Fall), date (08/16/25), day (Friday) and month (Nov) Where are we (state) (county) (town or city) (hospital) (floor)?: state ([facility]), county ([place]), town or city ([place]) and hospital/clinic ([facility]) Score Score: 9 Activity of Daily Living Bathing - sponge bath, tub bath or shower: receives no assistance (gets in/out by self, if usual bathing means Toileting - going to the 'toilet room' for urine/bowel elimination & cleaning self/arranging clothes: goes to toilet room, cleans self, arranges clothes without help Transfer: moves in & out of bed and chair without help (may use support object) Continence: has occasional 'accidents' Feeding: feeds self without help Total Score: 0 Information obtained from: patient Using telephone: independent Traveling: needs assistance Shopping: independent Preparing meals: independent Housework: independent Taking medicine: independent Managing money: needs assistance PHQ-9 Over the last 2 weeks, how often have you been bothered by any of the following problems? 1. Little interest or pleasure in doing things: not at all 2. Feeling down, depressed, or hopeless: not at all 3. Trouble falling or staying asleep, or sleeping too much: not at all 4. Feeling tired or having little energy: not at all 5. Poor appetite or overeating: not at all 6. Feeling bad about yourself - or that you are a failure or have let yourself or your family down: not at all 7. Trouble concentrating on things, such as reading the newspaper or watching television: not at all 8. Moving or speaking so slowly that other people could have noticed. Or the opposite - being so fidgety or restless that you have been moving around a lot more than usual: not at all 9. Thoughts that you would be better off or of hurting yourself in some way: not at all Total score: 0 Depression Screening Interpretation: Negative Depression Screening Done: Yes 27999 - PHQ-9 Billing: Yes Source: Developed by Drs. Elbert Massey, Adele aGma, Blair Figueroa and colleagues, with an educational collin from [employer]. Physical Exam Vital Signs: Last Vital Signs Temp 98.3 F 08/16/25 11:53 Pulse 63 08/16/25 11:53 Resp 16 08/16/25 11:53 BP 136/80 08/16/25 11:53 Pulse Ox 99 08/16/25 11:53 Oxygen Delivery Method Room Air 08/16/25 11:53 BMI result Body Mass Index 33.7 Assessment & Plan Assessment & Plan (1) Encounter for subsequent annual wellness visit (AWV) in Medicare patient: Code(s): Z00.00 - Encounter for general adult medical examination without abnormal findings Plan: Medical wellness checklist, reviewed, discussed with patient and updated. Patient up-to-date with her MOLST form, states that she has a healthcare proxy form at home. Reminded to get her COVID booster up-to-date with her flu and pneumococcal vaccination (2) Impaired fasting glucose: Code(s): R73.01 - Impaired fasting glucose Plan: Latest fasting labs showed normal fasting glucose level. Continue with adherence to healthy eating habits and staying active (3) Acquired hypothyroidism: Code(s): E03.9 - Hypothyroidism, unspecified Plan: Latest labs showed elevated TSH with normal free T4. Currently on levothyroxine, continued on the same dose (4) Dyslipidemia: Code(s): E78.5 - Hyperlipidemia, unspecified Plan: Fasting lipids showed mildly elevated LDL cholesterol , continue with lovastatin 20 mg daily (5) Essential hypertension: Code(s): I10 - Essential (primary) hypertension Plan: Continued on lisinopril 5 mg once a day (6) Rheumatoid arthritis: Code(s): M06.9 - Rheumatoid arthritis, unspecified Qualifiers: Rheumatoid arthritis location: multiple sites Rheumatoid factor presence: unspecified presence Qualified Code(s): M06.9 - Rheumatoid arthritis, unspecified Plan: Followed by rheumatology clinic Quality Reporting (2019) Depression/Bipolar (159/160/161/177) PHQ-9: Total score: 0 Coding Level of Care Code Medicare Subsequent (G0439) Diagnoses Encounter for subsequent annual wellness visit (AWV) in Medicare patient Z00.00 Impaired fasting glucose R73.01 Acquired hypothyroidism E03.9 Dyslipidemia E78.5 Essential hypertension I10 Rheumatoid arthritis involving multiple sites, unspecified whether rheumatoid factor present M06.9 Rheumatoid arthritis location: multiple sites Rheumatoid factor presence: unspecified presence CPT Codes Advance Care Planning - Advance Care Planning discussion: On file, no changes ([id number]) Advance Care Planning - Time spent: 1-15 minutes, on File ([id number]) Additional Codes PHQ-9 - 38893 - PHQ-9 Billing: Yes ([id number]) Advance Care Planning Advance Care Planning discussion: On file, no changes Date of discussion: 08/22/25 Who was present: Patient Forms completed: ALDA Time spent: 1-15 minutes, on File Actual minutes spent: 1
[2025-08-16 11:53] VITALS: BP 136/80; PULSE 63; RESP 16; TEMP 36.8; O2SAT 99; BMI 33.7
--- OUTSIDE RECORDS SUMMARY | 2025-08-16 14:56 | XMS_ITS | Encounter Summary ---
Author Organization [facility] Address [address] [place] [address] Care Team Providers Care Deep Well Contractor Name Role Phone Doris Vázquez MD Primary Care Provider + Encounter Details Date Type Department Care Team (Late st Contact Info) Description 08/11/2024 Lab Requisition [facility] - Main Lab [address] [facility] [place] [address] Doris Vázquez MD [address] [address] Gastro-esophageal reflux disease with esophagitis, [...] LAB CHEMISTRY METHOD 08/12/2024 10:41 AM EST [facility] Potassium 4.0 3.5 - 5.5 mmol/L LAB CHEMISTRY METHOD 08/12/2024 10:41 AM [facility] LAB Chloride 107 96 - 110 mmol/L LAB CHEMISTRY METHOD 08/12/2024 10:41 AM [facility] LAB CO2 28 21 - 32 mmol/L LAB CHEMISTRY METHOD 08/12/2024 10:41 AM [facility] LAB Anion Gap 6 3 - 11 LAB CHEMISTRY METHOD 08/12/2024 10:41 AM [facility] LAB Glucose 92 70 - 100 mg/dL LAB CHEMISTRY METHOD 08/12/2024 10:41 AM [facility] BUN 7 5 - 25 mg/dL LAB CHEMISTRY METHOD 08/12/2024 10:41 AM [facility] LAB Creatinine 0.62 0.50 - 1.10 mg/dL LAB CHEMISTRY METHOD 08/12/2024 10:41 AM [facility] LAB eGFR 88 >=60 mL/min/1. 73m2 LAB CHEMISTRY METHOD 08/12/2024 10:41 AM [facility] LAB Comment:Calculation based on the Chronic Kidney Disease Epidemiology Collaboration (CKD-EPI) equation refit without adjustment for race. BUN/Creatinine Ratio 11.3 LAB CHEMISTRY METHOD 08/12/2024 10:41 AM [facility] LAB Calcium 9.0 8.5 - 10.5 mg/dL LAB CHEMISTRY METHOD 08/12/2024 10:41 AM [facility] LAB Blood Venous blood specimen / Unknown Venipuncture / Unknown 08/12/2024 7:03 AM EST 08/12/2024 9:40 AM EST us Doris Vázquez MD LAB BLOOD ORDERABLES Fin al Result [facility] LAB [address] [place] [address], * (ABNORMAL) Complete blood count (08/12/2024 7:03 AM EST) WBC 5.9 4.8 - 10.8 K/mcL LAB HEMETOLOGY METHOD 08/12/2024 10:15 AM [facility] RBC 2.90(L) 3.80 - 4.80 M/mcL LAB HEMETOLOGY METHOD 08/12/2024 10:15 AM [facility] Hemoglobin 10.4(L) 11.5 - 16.0 g/dL LAB HEMETOLOGY METHOD 08/12/2024 10:15 AM [facility] LAB Hematocrit 32.3(L) 35.0 - 47.0 % LAB HEMETOLOGY METHOD 08/12/2024 10:15 AM [facility] MCV 112.2(H) 79.0 - 98.0 FL LAB HEMETOLOGY METHOD 08/12/2024 10:15 AM [facility] MCH 36.1(H) 27.0 - 32.0 pcg LAB HEMETOLOGY METHOD 08/12/2024 10:15 AM [facility] LAB MCHC 32.2 32.0 - 37.0 g/dL LAB HEMETOLOGY METHOD 08/12/2024 10:15 AM [facility] LAB RDW 15.5(H) 11.0 - 15.0 % LAB HEMETOLOGY METHOD 08/12/2024 10:15 AM [facility] LAB Platelets 150 130 - 400 K/mcL LAB HEMETOLOGY METHOD 08/12/2024 10:15 AM [facility] MPV 11.4(H) 7.0 - 11.0 FL LAB HEMETOLOGY METHOD 08/12/2024 10:15 AM [facility] LAB NRBC 0.0 <1.0 % LAB HEMETOLOGY METHOD 08/12/2024 10:15 AM [facility] LAB NRBC Absolute 0.00 <0.10 K/mcL LAB HEMETOLOGY METHOD 08/12/2024 10:15 AM [facility] Blood Venous blood specimen / Unknown Venipuncture / Unknown 08/12/2024 7:03 AM EST 08/12/2024 9:40 AM EST Doris Vázquez MD LAB BLOOD ORDERABLES Fin al Result [facility] [address] [place] [address], documented in this encounter Visit Diagnoses Diagnosis Gastro-esophageal reflux disease with esophagitis, without bleeding Essential (primary) hypertension Unspecified essential hypertension documented in this encounter Care Teams Deep Well Contractor Relationship Specialty Start Date End Date Doris Vázquez MD [address] [place] [id number] PCP - General Family Medicine 08/01/24 documented as of this encounter
--- OUTSIDE RECORDS SUMMARY | 2025-08-16 14:57 | XMS_ITS | Encounter Summary ---
Author Organization [facility] Address [address] [place] [address] Care Team Providers Care Order To Delivery Supervisor Name Role Phone Doris Vázquez MD Primary Care Provider + Encounter Details Date Type Department Care Team (Late st Contact Info) Description 09/17/2024 Lab Requisition [facility] - Main Lab [address] [facility] [place] [address] Doris Vázquez MD [address] [address] Gastro-esophageal reflux disease with esophagitis, without bleeding; [...] hypertension documented in this encounter Care Teams Order To Delivery Supervisor Relationship Specialty Start Date End Date Doris Vázquez MD [address] [address] PCP - General Family Medicine 08/01/24 documented as of this encounter
--- OUTSIDE RECORDS SUMMARY | 2025-08-16 14:57 | XMS_ITS | Encounter Summary ---
Author Organization [facility] Address [address] [place] [address] Care Team Providers Care Sanitation Manager Name Role Phone Doris Vázquez MD Primary Care Provider + Encounter Details Date Type Department Care Team (Late st Contact Info) Description 07/27/2024 Lab Requisition [facility] - Main Lab [address] [facility] [place] [address] Doris Vázquez MD [address] [address] Gastro-esophageal reflux disease with esophagitis, [...] LAB CHEMISTRY METHOD 07/29/2024 12:00 PM EST [facility] LAB Potassium 3.7 3.5 - 5.5 mmol/L LAB CHEMISTRY METHOD 07/29/2024 12:00 PM [facility] LAB Chloride 107 96 - 110 mmol/L LAB CHEMISTRY METHOD 07/29/2024 12:00 PM [facility] LAB CO2 27 21 - 32 mmol/L LAB CHEMISTRY METHOD 07/29/2024 12:00 PM [facility] LAB Anion Gap 9 3 - 11 LAB CHEMISTRY METHOD 07/29/2024 12:00 PM [facility] LAB Glucose 80 70 - 100 mg/dL LAB CHEMISTRY METHOD 07/29/2024 12:00 PM [facility] BUN 12 5 - 25 mg/dL LAB CHEMISTRY METHOD 07/29/2024 12:00 PM [facility] Creatinine 0.62 0.50 - 1.10 mg/dL LAB CHEMISTRY METHOD 07/29/2024 12:00 PM [facility] LAB eGFR 88 >=60 mL/min/1. 73m2 LAB CHEMISTRY METHOD 07/29/2024 12:00 PM [facility] LAB Comment:Calculation based on the Chronic Kidney Disease Epidemiology Collaboration (CKD-EPI) equation refit without adjustment for race. BUN/Creatinine Ratio 19.4 LAB CHEMISTRY METHOD 07/29/2024 12:00 PM [facility] Calcium 9.3 8.5 - 10.5 mg/dL LAB CHEMISTRY METHOD 07/29/2024 12:00 PM [facility] Blood Venous blood specimen / Unknown Venipuncture / Unknown 07/29/2024 6:56 AM EST 07/29/2024 10:28 AM EST us Doris Vázquez MD LAB BLOOD ORDERABLES Fin al Result [facility] LAB [address] [place] [address], * (ABNORMAL) Complete blood count (07/29/2024 6:56 AM EST) WBC 3.6(L) 4.8 - 10.8 K/mcL LAB HEMETOLOGY METHOD 07/29/2024 11:03 AM [facility] RBC 2.90(L) 3.80 - 4.80 M/mcL LAB HEMETOLOGY METHOD 07/29/2024 11:03 AM [facility] LAB Hemoglobin 10.0(L) 11.5 - 16.0 g/dL LAB HEMETOLOGY METHOD 07/29/2024 11:03 AM [facility] LAB Hematocrit 32.1(L) 35.0 - 47.0 % LAB HEMETOLOGY METHOD 07/29/2024 11:03 AM [facility] MCV 111.8(H) 79.0 - 98.0 FL LAB HEMETOLOGY METHOD 07/29/2024 11:03 AM [facility] LAB MCH 34.8(H) 27.0 - 32.0 pcg LAB HEMETOLOGY METHOD 07/29/2024 11:03 AM [facility] LAB MCHC 31.2(L) 32.0 - 37.0 g/dL LAB HEMETOLOGY METHOD 07/29/2024 11:03 AM [facility] LAB RDW 18.5(H) 11.0 - 15.0 % LAB HEMETOLOGY METHOD 07/29/2024 11:03 AM [facility] LAB Platelets 195 130 - 400 K/mcL LAB HEMETOLOGY METHOD 07/29/2024 11:03 AM [facility] MPV 10.6 7.0 - 11.0 FL LAB HEMETOLOGY METHOD 07/29/2024 11:03 AM [facility] LAB NRBC 0.0 <1.0 % LAB HEMETOLOGY METHOD 07/29/2024 11:03 AM [facility] LAB NRBC Absolute 0.00 <0.10 K/mcL LAB HEMETOLOGY METHOD 07/29/2024 11:03 AM [facility] Blood Venous blood specimen / Unknown Venipuncture / Unknown 07/29/2024 6:56 AM EST 07/29/2024 10:28 AM EST Doris Vázquez MD LAB BLOOD ORDERABLES Fin al Result [facility] [address] [place] [address], documented in this encounter Visit Diagnoses Diagnosis Gastro-esophageal reflux disease with esophagitis, without bleeding Essential (primary) hypertension Unspecified essential hypertension documented in this encounter Care Teams Sanitation Manager Relationship Specialty Start Date End Date Doris Vázquez MD [address] [place] [phone] PCP - General Family Medicine 08/01/24 documented as of this encounter
--- OUTSIDE RECORDS SUMMARY | 2025-08-16 14:57 | XMS_ITS | Encounter Summary ---
Author Organization [facility] Address [address] [place] [address] Care Team Providers Care Juvenile Court Judge Name Role Phone Doris Vázquez MD Primary Care Provider + Encounter Details Date Type Department Care Team (Late st Contact Info) Description 08/28/2024 Lab Requisition [facility] - Main Lab [address] [facility] [place] [address] Doris Vázquez MD [address] [address] Gastro-esophageal reflux disease with esophagitis, [...] LAB CHEMISTRY METHOD 08/30/2024 12:22 PM EST [facility] ([facility] Potassium 4.0 3.5 - 5.5 mmol/L LAB CHEMISTRY METHOD 08/30/2024 12:22 PM [facility] Chloride 104 96 - 110 mmol/L LAB CHEMISTRY METHOD 08/30/2024 12:22 PM [facility] CO2 30 21 - 32 mmol/L LAB CHEMISTRY METHOD 08/30/2024 12:22 PM [facility] Anion Gap 5 3 - 11 LAB CHEMISTRY METHOD 08/30/2024 12:22 PM [facility] Glucose 78 70 - 100 mg/dL LAB CHEMISTRY METHOD 08/30/2024 12:22 PM [facility] BUN 15 5 - 25 mg/dL LAB CHEMISTRY METHOD 08/30/2024 12:22 PM [facility] Creatinine 0.57 0.50 - 1.10 mg/dL LAB CHEMISTRY METHOD 08/30/2024 12:22 PM [facility] eGFR 90 >=60 mL/min/1. 73m2 LAB CHEMISTRY METHOD 08/30/2024 12:22 PM [facility] Comment:Calculation based on the Chronic Kidney Disease Epidemiology Collaboration (CKD-EPI) equation refit without adjustment for race. BUN/Creatinine Ratio 26.3 LAB CHEMISTRY METHOD 08/30/2024 12:22 PM [facility] Calcium 9.4 8.5 - 10.5 mg/dL LAB CHEMISTRY METHOD 08/30/2024 12:22 PM [facility] Blood Venous blood specimen / Unknown Venipuncture / Unknown 08/30/2024 7:03 AM EST 08/30/2024 10:57 AM EST us Doris Vázquez MD LAB BLOOD ORDERABLES Fin al Result [facility] [address] [place] [address], * (ABNORMAL) Complete blood count (08/30/2024 7:03 AM EST) WBC 5.5 4.8 - 10.8 K/mcL LAB HEMETOLOGY METHOD 08/30/2024 12:23 PM [facility] RBC 3.00(L) 3.80 - 4.80 M/mcL LAB HEMETOLOGY METHOD 08/30/2024 12:23 PM [facility] Hemoglobin 9.9(L) 11.5 - 16.0 g/dL LAB HEMETOLOGY METHOD 08/30/2024 12:23 PM [facility] Hematocrit 31.7(L) 35.0 - 47.0 % LAB HEMETOLOGY METHOD 08/30/2024 12:23 PM [facility] MCV 107.1(H) 79.0 - 98.0 FL LAB HEMETOLOGY METHOD 08/30/2024 12:23 PM [facility] MCH 33.4(H) 27.0 - 32.0 pcg LAB HEMETOLOGY METHOD 08/30/2024 12:23 PM [facility] MCHC 31.2(L) 32.0 - 37.0 g/dL LAB HEMETOLOGY METHOD 08/30/2024 12:23 PM [facility] RDW 13.8 11.0 - 15.0 % LAB HEMETOLOGY METHOD 08/30/2024 12:23 PM [facility] Platelets 331 130 - 400 K/mcL LAB HEMETOLOGY METHOD 08/30/2024 12:23 PM [facility] MPV 9.7 7.0 - 11.0 FL LAB HEMETOLOGY METHOD 08/30/2024 12:23 PM [facility] NRBC 0.0 <1.0 % LAB HEMETOLOGY METHOD 08/30/2024 12:23 PM [facility] NRBC Absolute 0.00 <0.10 K/mcL LAB HEMETOLOGY METHOD 08/30/2024 12:23 PM EST [facility] Blood Venous blood specimen / Unknown Venipuncture / Unknown 08/30/2024 7:03 AM EST 08/30/2024 10:57 AM EST us Doris Vázquez MD LAB BLOOD ORDERABLES Fin al Result [facility] ([facility]) [facility] [address] [place] [address], documented in this encounter Visit Diagnoses Diagnosis Gastro-esophageal reflux disease with esophagitis, without bleeding Essential (primary) hypertension Unspecified essential hypertension documented in this encounter Care Teams Juvenile Court Judge Relationship Specialty Start Date End Date Doris Vázquez MD [address] [place] [id number] PCP - General Family Medicine 08/01/24 documented as of this encounter
--- OUTSIDE RECORDS SUMMARY | 2025-08-16 14:57 | XMS_ITS | Encounter Summary ---
Author Organization [employer] [facility] Address [address] [place] [address] Care Team Providers Care Hoop Maker Machine Name Role Phone Doris Vázquez MD Primary Care Provider + Encounter Details Date Type Department Care Team (Late st Contact Info) Description 08/13/2024 Lab Requisition [facility] - Main Lab [address] [place] [address] Doris Vázquez MD [address] [phone] Encounter for therapeutic drug level monitoring; Gastro-esophageal [...] LAB CHEMISTRY METHOD 08/16/2024 3:59 PM EST [facility] ([facility]) [facility] Potassium 4.1 3.5 - 5.5 mmol/L LAB CHEMISTRY METHOD 08/16/2024 3:59 PM [facility] Chloride 107 96 - 110 mmol/L LAB CHEMISTRY METHOD 08/16/2024 3:59 PM [facility] CO2 27 21 - 32 mmol/L LAB CHEMISTRY METHOD 08/16/2024 3:59 PM [facility] Anion Gap 7 3 - 11 LAB CHEMISTRY METHOD 08/16/2024 3:59 PM [facility] Glucose 84 70 - 100 mg/dL LAB CHEMISTRY METHOD 08/16/2024 3:59 PM [facility] BUN 9 5 - 25 mg/dL LAB CHEMISTRY METHOD 08/16/2024 3:59 PM [facility] Creatinine 0.56 0.50 - 1.10 mg/dL LAB CHEMISTRY METHOD 08/16/2024 3:59 PM [facility] eGFR 90 >=60 mL/min/1. 73m2 LAB CHEMISTRY METHOD 08/16/2024 3:59 PM [facility] Comment:Calculation based on the Chronic Kidney Disease Epidemiology Collaboration (CKD-EPI) equation refit without adjustment for race. BUN/Creatinine Ratio 16.1 LAB CHEMISTRY METHOD 08/16/2024 3:59 PM [facility] Calcium 9.1 8.5 - 10.5 mg/dL LAB CHEMISTRY METHOD 08/16/2024 3:59 PM [facility] AST (SGOT) 12 10 - 42 unit/L LAB CHEMISTRY METHOD 08/16/2024 3:59 PM [facility] ALT (SGPT) 14 10 - 60 unit/L LAB CHEMISTRY METHOD 08/16/2024 3:59 PM [facility] Alkaline Phosphatase 70 42 - 121 unit/L LAB CHEMISTRY METHOD 08/16/2024 3:59 PM [facility] Total Protein 6.0 6.0 - 8.0 g/dL LAB CHEMISTRY METHOD 08/16/2024 3:59 PM EST [facility] Albumin 3.2 3.2 - 5.0 g/dL LAB CHEMISTRY METHOD 08/16/2024 3:59 PM [facility] Total Bilirubin 0.3 0.0 - 1.4 mg/dL LAB CHEMISTRY METHOD 08/16/2024 3:59 PM [facility] Blood Venous blood specimen / Unknown Venipuncture / Unknown 08/16/2024 7:25 AM EST 08/16/2024 11:46 AM EST us Doris Vázquez MD LAB BLOOD ORDERABLES Fin al Result [facility] [address] [place] [address], [place] [phone] * (ABNORMAL) Complete blood count (08/16/2024 7:25 AM EST) WBC 5.3 4.8 - 10.8 K/mcL LAB HEMETOLOGY METHOD 08/16/2024 1:30 PM [facility] RBC 2.90(L) 3.80 - 4.80 M/mcL LAB HEMETOLOGY METHOD 08/16/2024 1:30 PM [facility] Hemoglobin 10.2(L) 11.5 - 16.0 g/dL LAB HEMETOLOGY METHOD 08/16/2024 1:30 PM [facility] Hematocrit 32.5(L) 35.0 - 47.0 % LAB HEMETOLOGY METHOD 08/16/2024 1:30 PM [facility] MCV 111.7(H) 79.0 - 98.0 FL LAB HEMETOLOGY METHOD 08/16/2024 1:30 PM [facility] MCH 35.1(H) 27.0 - 32.0 pcg LAB HEMETOLOGY METHOD 08/16/2024 1:30 PM [facility] MCHC 31.4(L) 32.0 - 37.0 g/dL LAB HEMETOLOGY METHOD 08/16/2024 1:30 PM EST [facility] RDW 15.0 11.0 - 15.0 % LAB HEMETOLOGY METHOD 08/16/2024 1:30 PM [facility] Platelets 177 130 - 400 K/mcL LAB HEMETOLOGY METHOD 08/16/2024 1:30 PM EST [facility] MPV 11.1(H) 7.0 - 11.0 FL LAB HEMETOLOGY METHOD 08/16/2024 1:30 PM EST [facility] NRBC 0.0 <1.0 % LAB HEMETOLOGY METHOD 08/16/2024 1:30 PM [facility] NRBC Absolute 0.00 <0.10 K/mcL LAB HEMETOLOGY METHOD 08/16/2024 1:30 PM [facility] Blood Venous blood specimen / Unknown Venipuncture / Unknown 08/16/2024 7:25 AM EST 08/16/2024 11:45 AM EST Doris Vázquez MD LAB BLOOD ORDERABLES Fin al Result [facility] [address] [place] [address], documented in this encounter Visit Diagnoses Diagnosis Encounter for therapeutic drug level monitoring Gastro-esophageal reflux disease with esophagitis, without bleeding Essential (primary) hypertension Unspecified essential hypertension documented in this encounter Care Teams Hoop Maker Machine Relationship Specialty Start Date End Date Doris Vázquez MD [address] [place] [phone] PCP - General Family Medicine 08/01/24 documented as of this encounter
--- OUTSIDE RECORDS SUMMARY | 2025-08-16 14:57 | XMS_ITS | Patient Health Record ---
Author Organization [facility] Address [address] [facility] [place] [address] Care Team Providers Care Intellectual Property Legal Assistant Name Role Phone Kaiden GORDON, Amaya Walton Primary Care Provider Un available [facility] Unavailable [phone] Allergies Allergen (clinical drug ingredient) Drug/Non Drug Allergy documented on EMR Reaction Allergy Type Onset Date Status amoxicillin Amoxicillin rash Drug Allergy Act lurdes aspirin Aspirin bleeding ulcer Drug Allergy Ac tive Reason For Referral No Information Medications Medication SIG (Take, Route, Frequency, Duration) Notes Start Date End Date Status Nabumetone 500 MG 1 tablet Orally Twic e a day Active Levothyroxine Sodium Active Remicade Not-Taking Doxycycline Monohydrate 100 MG 1 capsule Orally Twice a day; Duration: 10 days 08/01/2025 Active Salsalate 5 tablets Not-Taking Multivitamin Active Orencia Not-Taking Actemra 80 MG/4ML as directed Intravenous Active Enbrel Not-Taking LEVOleucovorin Calcium Active Lisinopril 10 MG 1 tablet Orally Once a day; Duration: 30 day(s) Active Lovastatin Active Methotrexate 10 ml A ctive Synthroid six days per week Ac tive Tylenol Arthritis Pain Active Viactiv Active Bilberry Active Doxycycline Hyclate 100 MG 1 capsule Ora lly Once a day; Duration: 5 days 01/19/2024 Not-Taking predniSONE 5 MG 1 tablet Orally Once a day prn Not-Taking Ciclopirox Olamine 0.77 % 1 application to affected area Externally Twice a day; Duration: 30 days PRN 02/26/2019 Not-Takin g Doxycycline Hyclate 100 MG 1 capsule Ora lly Once a day; Duration: 10 day(s) 12/23/2022 Not-Taking Simponi Not-Taking Diclofenac cream Not-Takin g traMADol HCl Not-Jose ing Zofran Not-Taking Ciclopirox Olamine 0.77% external Apply to effected areas twice a day; Duration: 30 days 05/04/2015 Not-Takin g Glucosamine Not-Taki ng Immunizations Vaccine Route Administration Date Status Comme nts Influenza Unknown 06/06/2021 Administered Influenza Unknown 06/24/2025 Administered COVID-19 Pfizer BioNTech Vaccine Unknown 06/20/2021 Administered 1st 11/05/2020 2nd 11/26/2020 Social History Tobacco Use: Social History Observation Description Date Details (start date - stop date) Never Smoker NA - NA Tobacco use other than smoking: Question Answer Notes Are you an other tobacco user? No Tobacco Control (Standard) Question Answer Notes Tobacco use: Nonsmoker Additional Findings: Tobacco non-user Current no nsmoker AUDIT-C (Standard) Question Answer Notes Did you have a drink containing alcohol in the p ast year? No Points 0 Interpretation Negative Problems Problem Type SNOMED Code ICD Code Onset Dates Problem Status W/U Status Risk Notes Problem Tinea unguium (999422387) Tinea unguium (B35.1) Active confirmed Problem Ingrown nail (574705658) Ingrown nail (L60.0) Active confirmed Problem Abscess of toe (434528156) Abscess of toe, right (L02.611) Active confirmed Problem Cellulitis of foot (451776328) Cellulitis of foot (L03.119) Active confirmed Problem Ulcer of left foot (disorder) (675168898) Ulcer of left foot, limited to breakdown of skin (L97.521) Active confirmed Vital Signs Blood pressure diastolic 60 mm Hg 08/01/2025 Height 5 ft 2 in in 08/01/2025 Blood pressure systolic 134 mm Hg 08/01/2025 Weight 200 lbs 08/01/2025 BMI 36.58 kg/m2 08/01/2025 Procedures Procedure Date Ordered Date Performed Result Body Sit e 60902-XUXBEGX NAIL, 6 OR MORE 08/01/2025 N/A 99759-Yslnelqg Plate 08/01/2025 N/A 15605 I&D ABSCESS- SIMPLE,SINGLE 08/01/2025 N/A Encounters Encounter Location Date Provider Diagnosis [facility] [address] 08/01/2025 Adore Black Tinea unguium B35.1 ; Abscess of toe, right L02.611 ; Pain in right toe(s) M79.674 ; Pain in left toe(s) M79.675 ; Ingrown nail L60.0 ; Cellulitis of foot L03.119 and Ulcer of left foot, limited to breakdown of skin L97.521 [facility] [address] 08/01/2025 Adore Black [address] [address] 07/27/2025 Adore Black [address] [address] 08/01/2025 Adore Black [address] [address] 08/01/2025 Adore Black Assessments Encounter Date Diagnosis (ICD Code) Assessment Notes Treatment Notes Treatment Clinical Notes Section Notes 08/01/2025 Tinea unguium (ICD-10 - B35.1) 08/01/2025 Abscess of toe, right (ICD-10 - L02.611) Patient Educated with: WOUND CARE INSTRUCTIONS.p df (WOUND CARE INSTRUCTIONS.p df) 08/01/2025 Pain in right toe(s) (ICD-10 - M79.674) 08/01/2025 Pain in left toe(s) (ICD-10 - M79.675) 08/01/2025 Ingrown nail (ICD-10 - L60.0) 08/01/2025 Cellulitis of foot (ICD-10 - L03.119) 08/01/2025 Ulcer of left foot, limited to breakdown of skin (ICD-10 - L97.521) Plan Of Treatment Pending Test Test Name Order Date X ray : Foot, left 2V 08/12/2011 *Wound Culture 08/01/2025 91830-CUDHFJI NAIL, 6 OR MORE 08/01/2025 21006-XBZXPHI NAIL, 6 OR MORE 04/01/2024 51050-HSETDGS NAIL, 6 OR MORE 06/03/2024 49239-HAHSQQO NAIL, 6 OR MORE 10/17/2022 60800-AIKFEHY NAIL, 6 OR MORE 12/23/2022 12789-YRGLNWY NAIL, 6 OR MORE 02/24/2023 59628-LGBBSYF NAIL, 6 OR MORE 04/28/2023 81100-ZMYDREF NAIL, 6 OR MORE 07/03/2023 00031-CSGNWJP NAIL, 6 OR MORE 09/11/2023 75370-KUPKTOW NAIL, 6 OR MORE 11/17/2023 87180-ZSEWUGU NAIL, 6 OR MORE 01/19/2024 02293-ROWNDHX NAIL, 6 OR MORE 03/18/2013 43032-XEUKDVU NAIL, 6 OR MORE 06/16/2013 72397-DUYUYFI NAIL, 6 OR MORE 08/26/2013 06247-BEEMDBF NAIL, 6 OR MORE 01/17/2014 40302-BSEORCF NAIL, 6 OR MORE 11/01/2013 94592-QMJIPTV NAIL, 6 OR MORE 04/14/2014 01474-OLJKZYI NAIL, 6 OR MORE 06/22/2014 59820-SUJODZX NAIL, 6 OR MORE 08/25/2014 61280-KFDIZWJ NAIL, 6 OR MORE 11/02/2014 28190-UHGEETH NAIL, 6 OR MORE 01/11/2015 37836-UYLNFER NAIL, 6 OR MORE 03/22/2015 88186-COXKHZA NAIL, 6 OR MORE 08/09/2015 81492-HAFGQSA NAIL, 6 OR MORE 12/20/2015 75268-TTZWOEE NAIL, 6 OR MORE 02/26/2016 51054-VXFNPGP NAIL, 6 OR MORE 05/13/2016 38003-RRRAKJN NAIL, 6 OR MORE 07/15/2016 86913-LADJMTO NAIL, 6 OR MORE 09/26/2016 39248-JMSLFEC NAIL, 6 OR MORE 11/28/2016 03486-HTNFSAM NAIL, 6 OR MORE 02/03/2017 81790-OZSBNED NAIL, 6 OR MORE 04/03/2017 70991-PECKNOS NAIL, 6 OR MORE 06/05/2017 21854-MDDQYVR NAIL, 6 OR MORE 08/07/2017 05495-SKHVHJD NAIL, 6 OR MORE 10/09/2017 75524-NLGYVMO NAIL, 6 OR MORE 12/15/2017 31964-PBCOFAX NAIL, 6 OR MORE 02/19/2018 82102-SRWXLOE NAIL, 6 OR MORE 04/23/2018 84592-OJIGTRA NAIL, 6 OR MORE 06/25/2018 80288-VPBGZFY NAIL, 6 OR MORE 08/27/2018 05424-ROJDEMU NAIL, 6 OR MORE 10/29/2018 94783-BIOCXUP NAIL, 6 OR MORE 01/07/2019 76950-OBFWWUW NAIL, 6 OR MORE 03/11/2019 93343-UNMKHRE NAIL, 6 OR MORE 05/20/2019 17764-YJLZOGG NAIL, 6 OR MORE 07/22/2019 58658-RJAKALG NAIL, 6 OR MORE 09/23/2019 00970-QPVZZHE NAIL, 6 OR MORE 11/25/2019 73129-KBCQIYZ NAIL, 6 OR MORE 02/03/2020 18397-ZBGBPLW NAIL, 6 OR MORE 04/06/2020 62486-OGELWQG NAIL, 6 OR MORE 06/08/2020 42864-VXHRSTP NAIL, 6 OR MORE 08/10/2020 89933-BBBILIX NAIL, 6 OR MORE 10/12/2020 75017-EETQPJT NAIL, 6 OR MORE 12/14/2020 85825-RJRQTSS NAIL, 6 OR MORE 02/22/2021 02868-ANJQFOZ NAIL, 6 OR MORE 04/30/2021 83029-GYRLKRE NAIL, 6 OR MORE 07/05/2021 53335-TFSOERL NAIL, 6 OR MORE 09/06/2021 99975-BXQGSKL NAIL, 6 OR MORE 12/03/2021 68040-YQXYNPH NAIL, 6 OR MORE 02/04/2022 19744-DVHAQGK NAIL, 6 OR MORE 04/08/2022 80747-YRCVFYP NAIL, 6 OR MORE 06/10/2022 88282-LWECNNZ NAIL, 6 OR MORE 08/12/2022 91874-HGRSNXG NAIL, 1-5 10/18/2015 17640-MWQCVGI NAIL, 1-5 10/19/2012 17226-TFQFLVH NAIL, 1-5 12/28/2012 49463-Dddzvrnu Plate 01/27/2012 08529-Nhiepmaj Plate 03/18/2013 87879-Vpetfodx Plate 12/28/2012 49939-Tzeqyjxc Plate 05/04/2012 58336-Ssvnqzjz Plate 08/25/2014 96633-Oaexqqxf Plate 06/22/2014 26996-Aotqteeg Plate 04/14/2014 27808-Gqeizmpx Plate 11/01/2013 50442-Oehfyrrd Plate 01/17/2014 63515-Koxldwgo Plate 06/16/2013 53379-Fvmumlgb Plate 10/18/2015 66057-Ejffzzjr Plate 09/26/2016 55426-Afuvzgwz Plate 04/03/2017 20123-Kpufctln Plate 02/03/2017 09669-Jpuztqtd Plate 01/11/2015 36129-Arrttstd Plate 11/02/2014 60726-Pvyrloon Plate 03/22/2015 65058-Wxxacacs Plate 12/03/2021 46493-Xxdolxil Plate 04/08/2022 17962-Plbtvvvu Plate 07/05/2021 23193-Ueuehafe Plate 02/22/2021 96411-Yytpywhz Plate 04/30/2021 50229-Hqimmmck Plate 04/06/2020 88271-Aijxykvd Plate 10/12/2020 51269-Manslpiz Plate 06/05/2017 74487-Jgqpfcjo Plate 07/22/2019 03506-Lfvfyrtc Plate 04/23/2018 50677-Dmxennzw Plate 12/15/2017 80498-Mdtznmyg Plate 08/01/2025 32603-Idotfcat Plate 11/17/2023 15654-Luimxdbl Plate Each Additional 11/2020 21851-Uehtchqx Plate Each Additional 08800-Bmmpetnd Plate Each Additional 36042-Xvypznyb Plate Each Additional 09/2014 99664-Yyraixvv Plate Each Additional 07/2015 21729-Hmsbvtfw Plate Each Additional 57844-Fwnzrqqt Plate Each Additional 09/2013 27495-Wfsijmam Plate Each Additional 68329-Gbftncss Plate Each Additional 04/2013 52399- Debride <25 sq cm 03/18/2013 24810- Debride <25 sq cm 05/04/2012 40776- Debride <25 sq cm 12/28/2012 27780- Debride <25 sq cm 08/10/2012 03935- Debride <25 sq cm 10/19/2012 05815- Debride <25 sq cm 08/12/2011 73537- Debride <25 sq cm 10/23/2011 93942- Debride <25 sq cm 01/27/2012 75782- Debride <25 sq cm 08/25/2014 21318- Debride <25 sq cm 11/01/2013 60234- Debride <25 sq cm 01/17/2014 64985- Debride <25 sq cm 08/26/2013 24656- Debride <25 sq cm 11/02/2014 90766- Debride <25 sq cm 01/11/2015 30777- Debride <25 sq cm 05/13/2016 75295- Debride <25 sq cm 03/22/2015 78644- Debride <25 sq cm 11/28/2016 63802- Debride <25 sq cm 04/03/2017 10461- Debride <25 sq cm 06/05/2017 81941- Debride <25 sq cm 05/24/2015 67109- Debride <25 sq cm 09/26/2016 31686- Debride <25 sq cm 10/30/2015 07916- Debride <25 sq cm 07/15/2016 70803- Debride <25 sq cm 02/04/2022 48713- Debride <25 sq cm 12/03/2021 51416- Debride <25 sq cm 06/10/2022 81498- Debride <25 sq cm 10/17/2022 22777- Debride <25 sq cm 08/12/2022 60034- Debride <25 sq cm 02/22/2021 51539- Debride <25 sq cm 12/14/2020 83986- Debride <25 sq cm 04/30/2021 82981- Debride <25 sq cm 09/06/2021 08243- Debride <25 sq cm 07/05/2021 68747- Debride <25 sq cm 06/25/2018 12125- Debride <25 sq cm 05/20/2019 82958- Debride <25 sq cm 01/07/2019 54607- Debride <25 sq cm 10/29/2018 28868- Debride <25 sq cm 08/27/2018 90113- Debride <25 sq cm 07/22/2019 10739- Debride <25 sq cm 11/25/2019 42807- Debride <25 sq cm 09/23/2019 44872- Debride <25 sq cm 08/10/2020 94725- Debride <25 sq cm 06/08/2020 74433- Debride <25 sq cm 04/06/2020 68704- Debride <25 sq cm 02/03/2020 24969- Debride <25 sq cm 06/03/2024 73176- Debride <25 sq cm 02/02/2024 95696- Debride <25 sq cm 11/17/2023 68112- Debride <25 sq cm 09/11/2023 67401- Debride <25 sq cm 07/03/2023 01890- Debride <25 sq cm 04/28/2023 06389- Debride <25 sq cm 01/06/2023 99003- Debride <25 sq cm 02/24/2023 20423- Debride <25 sq cm 12/23/2022 43732-GJGSLLA SKIN/TISSUE 01/19/2024 67886 I&D ABSCESS- SIMPLE,SINGLE 023 09415 I&D ABSCESS- SIMPLE,SINGLE 025 56254 I&D ABSCESS- SIMPLE,SINGLE 017 88838 I&D ABSCESS- SIMPLE,SINGLE 015 65018 I&D ABSCESS- SIMPLE,SINGLE 016 Next Appt Details Provider Name:Adore Marks , 10/06/2025 10:00:00 AM, [address] [place], [address], Insurance Providers Payer Name Payer Address Payer Phone Subscriber Number Group Number Insured Name Patient Relationship to Insured Coverage Start Date Coverage End Date Medicare National [facility] [address] [place] [address] [id number] Doris Leigh Self - patient is the insured [employer] [facility] [address] [place] [address] [phone] [id number] Doris Leigh Self - patient is the insured Medical (General) History Medical History History ICD Code transfusions joint implants/screws Arthritis hypertension thyroid disorder psoriasis Rheumatoid arthritis M06.9 Other hammer toe(s) (acquired), left rian t M20.42 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
--- OUTSIDE RECORDS SUMMARY | 2025-08-16 14:57 | XMS_ITS | Encounter Summary ---
Author Organization [facility] Address [address] [place] [address] Care Team Providers Care Partner Marketing Intern Name Role Phone Doris Vázquez MD Primary Care Provider + Encounter Details Date Type Department Care Team (Late st Contact Info) Description 09/11/2024 Lab Requisition [facility] - Main Lab 299 [facility] [place] [address] Doris Vázquez MD [address] [address] Gastro-esophageal reflux disease with esophagitis, [...] LAB CHEMISTRY METHOD 09/13/2024 11:08 AM EST [facility] ([facility] LAB Potassium 4.1 3.5 - 5.5 mmol/L LAB CHEMISTRY METHOD 09/13/2024 11:08 AM [facility] LAB Chloride 107 96 - 110 mmol/L LAB CHEMISTRY METHOD 09/13/2024 11:08 AM [facility] LAB CO2 30 21 - 32 mmol/L LAB CHEMISTRY METHOD 09/13/2024 11:08 AM [facility] LAB Anion Gap 3 3 - 11 LAB CHEMISTRY METHOD 09/13/2024 11:08 AM [facility] LAB Glucose 87 70 - 100 mg/dL LAB CHEMISTRY METHOD 09/13/2024 11:08 AM [facility] LAB BUN 7 5 - 25 mg/dL LAB CHEMISTRY METHOD 09/13/2024 11:08 AM [facility] LAB Creatinine 0.56 0.50 - 1.10 mg/dL LAB CHEMISTRY METHOD 09/13/2024 11:08 AM [facility] LAB eGFR 90 >=60 mL/min/1. 73m2 LAB CHEMISTRY METHOD 09/13/2024 11:08 AM [facility] LAB Comment:Calculation based on the Chronic Kidney Disease Epidemiology Collaboration (CKD-EPI) equation refit without adjustment for race. BUN/Creatinine Ratio 12.5 LAB CHEMISTRY METHOD 09/13/2024 11:08 AM [facility] LAB Calcium 9.1 8.5 - 10.5 mg/dL LAB CHEMISTRY METHOD 09/13/2024 11:08 AM [facility] LAB Blood Venous blood specimen / Unknown Venipuncture / Unknown 09/13/2024 6:50 AM EST 09/13/2024 10:03 AM EST us Doris Vázquez MD LAB BLOOD ORDERABLES Fin al Result [facility] LAB [address] [place] [address], * (ABNORMAL) Complete blood count (09/13/2024 6:50 AM EST) WBC 6.3 4.8 - 10.8 K/mcL LAB HEMETOLOGY METHOD 09/13/2024 10:28 AM [facility] LAB RBC 3.20(L) 3.80 - 4.80 M/mcL LAB HEMETOLOGY METHOD 09/13/2024 10:28 AM [facility] LAB Hemoglobin 11.0(L) 11.5 - 16.0 g/dL LAB HEMETOLOGY METHOD 09/13/2024 10:28 AM [facility] LAB Hematocrit 34.2(L) 35.0 - 47.0 % LAB HEMETOLOGY METHOD 09/13/2024 10:28 AM [facility] LAB MCV 105.6(H) 79.0 - 98.0 FL LAB HEMETOLOGY METHOD 09/13/2024 10:28 AM [facility] LAB MCH 34.0(H) 27.0 - 32.0 pcg LAB HEMETOLOGY METHOD 09/13/2024 10:28 AM [facility] LAB MCHC 32.2 32.0 - 37.0 g/dL LAB HEMETOLOGY METHOD 09/13/2024 10:28 AM [facility] LAB RDW 14.6 11.0 - 15.0 % LAB HEMETOLOGY METHOD 09/13/2024 10:28 AM [facility] LAB Platelets 240 130 - 400 K/mcL LAB HEMETOLOGY METHOD 09/13/2024 10:28 AM [facility] LAB MPV 10.0 7.0 - 11.0 FL LAB HEMETOLOGY METHOD 09/13/2024 10:28 AM [facility] LAB NRBC 0.0 <1.0 % LAB HEMETOLOGY METHOD 09/13/2024 10:28 AM [facility] LAB NRBC Absolute 0.00 <0.10 K/mcL LAB HEMETOLOGY METHOD 09/13/2024 10:28 AM [facility] LAB Blood Venous blood specimen / Unknown Venipuncture / Unknown 09/13/2024 6:50 AM EST 09/13/2024 10:02 AM EST us Doris Vázquez MD LAB BLOOD ORDERABLES Fin al Result [facility] ([facility]) [facility] LAB [address] [place] [address], documented in this encounter Visit Diagnoses Diagnosis Gastro-esophageal reflux disease with esophagitis, without bleeding Essential (primary) hypertension Unspecified essential hypertension documented in this encounter Care Teams Partner Marketing Intern Relationship Specialty Start Date End Date Doris Vázquez MD [address] [place] [phone] PCP - General Family Medicine 08/01/24 documented as of this encounter
--- OUTSIDE RECORDS SUMMARY | 2025-08-16 14:57 | XMS_ITS | Encounter Summary ---
Author Organization [facility] Address [address] [place] [address] Care Team Providers Care Associate Chief Nurse Name Role Phone Doris Vázquez MD Primary Care Provider + Encounter Details Date Type Department Care Team (Late st Contact Info) Description 08/25/2024 Lab Requisition [facility] - Main Lab [address] [place] [address] Doris Vázquez MD [address] [address] Gastro-esophageal reflux disease with esophagitis, [...] LAB CHEMISTRY METHOD 08/26/2024 11:40 AM EST [facility] ([facility] LAB Potassium 3.9 3.5 - 5.5 mmol/L [...] [facility] LAB Comment:Calculation based on the Chronic Kidney Disease Epidemiology Collaboration (CKD-EPI) equation refit without adjustment for race. BUN/Creatinine Ratio 12.2 LAB CHEMISTRY METHOD 08/26/2024 11:40 AM [facility] LAB Calcium 9.2 8.5 - 10.5 mg/dL LAB CHEMISTRY METHOD 08/26/2024 11:40 AM [facility] LAB Blood Venous blood specimen / Unknown Venipuncture / Unknown 08/26/2024 6:38 AM EST 08/26/2024 10:50 AM EST us Doris Vázquez MD LAB BLOOD ORDERABLES Fin al Result [facility] LAB [address] [place] [address], * (ABNORMAL) Complete blood count (08/26/2024 6:38 AM EST) WBC 6.3 4.8 - 10.8 K/mcL LAB HEMETOLOGY METHOD 08/26/2024 11:24 AM [facility] LAB RBC 3.00(L) 3.80 - 4.80 M/mcL LAB HEMETOLOGY METHOD 08/26/2024 11:24 AM [facility] Platelets 260 130 - 400 K/mcL LAB HEMETOLOGY METHOD 08/26/2024 11:24 AM [facility] LAB MPV 10.0 7.0 - 11.0 FL LAB HEMETOLOGY METHOD 08/26/2024 11:24 AM [facility] LAB NRBC 0.0 <1.0 % LAB HEMETOLOGY METHOD 08/26/2024 11:24 AM [facility] LAB NRBC Absolute 0.00 <0.10 K/mcL LAB HEMETOLOGY METHOD 08/26/2024 11:24 AM [facility] LAB Blood Venous blood specimen / Unknown Venipuncture / Unknown 08/26/2024 6:38 AM EST 08/26/2024 11:03 AM EST Doris Vázquez MD LAB BLOOD ORDERABLES Fin al Result [facility] ([facility]) [facility] LAB [address] [place] [address], documented in this encounter Visit Diagnoses Diagnosis Gastro-esophageal reflux disease with esophagitis, without bleeding Essential (primary) hypertension Unspecified essential hypertension documented in this encounter Care Teams Associate Chief Nurse Relationship Specialty Start Date End Date Doris Vázquez MD [address] [place] [phone] PCP - General Family Medicine 08/01/24 documented as of this encounter
--- OUTSIDE RECORDS SUMMARY | 2025-08-16 14:57 | XMS_ITS | Encounter Summary ---
Author Organization [facility] Address [address] [place] [address] Care Team Providers Care Back End Architect Name Role Phone Doris Vázquez MD Primary Care Provider + Encounter Details Date Type Department Care Team (Late st Contact Info) Description 09/01/2024 Lab Requisition [facility] - Main Lab [address] [place] [address] Doris Vázquez MD [address] [address] Gastro-esophageal reflux disease with esophagitis, [...] LAB CHEMISTRY METHOD 09/02/2024 10:17 AM EST [facility] ([facility] LAB Potassium 4.0 3.5 - 5.5 mmol/L LAB CHEMISTRY METHOD 09/02/2024 10:17 AM [facility] LAB Chloride 107 96 - 110 mmol/L LAB CHEMISTRY METHOD 09/02/2024 10:17 AM [facility] LAB CO2 30 21 - 32 mmol/L LAB CHEMISTRY METHOD 09/02/2024 10:17 AM [facility] LAB Anion Gap 3 3 - 11 LAB CHEMISTRY METHOD 09/02/2024 10:17 AM [facility] LAB Glucose 75 70 - 100 mg/dL LAB CHEMISTRY METHOD 09/02/2024 10:17 AM [facility] LAB BUN 11 5 - 25 mg/dL LAB CHEMISTRY METHOD 09/02/2024 10:17 AM [facility] LAB Creatinine 0.64 0.50 - 1.10 mg/dL LAB CHEMISTRY METHOD 09/02/2024 10:17 AM [facility] LAB eGFR 87 >=60 mL/min/1. 73m2 LAB CHEMISTRY METHOD 09/02/2024 10:17 AM [facility] LAB Comment:Calculation based on the Chronic Kidney Disease Epidemiology Collaboration (CKD-EPI) equation refit without adjustment for race. BUN/Creatinine Ratio 17.2 LAB CHEMISTRY METHOD 09/02/2024 10:17 AM [facility] LAB Calcium 8.4(L) 8.5 - 10.5 mg/dL LAB CHEMISTRY METHOD 09/02/2024 10:17 AM [facility] LAB Blood Venous blood specimen / Unknown Venipuncture / Unknown 09/02/2024 6:38 AM EST 09/02/2024 9:22 AM EST us Doris Vázquez MD LAB BLOOD ORDERABLES Fin al Result [facility] LAB [address] [place] [address], * (ABNORMAL) Complete blood count (09/02/2024 6:38 AM EST) WBC 7.5 4.8 - 10.8 K/mcL LAB HEMETOLOGY METHOD 09/02/2024 9:48 AM [facility] LAB RBC 3.10(L) 3.80 - 4.80 M/[facility] LAB HEMETOLOGY METHOD 09/02/2024 9:48 AM [facility] LAB Hemoglobin 10.5(L) 11.5 - 16.0 g/dL LAB HEMETOLOGY METHOD 09/02/2024 9:48 AM [facility] LAB Hematocrit 33.4(L) 35.0 - 47.0 % LAB HEMETOLOGY METHOD 09/02/2024 9:48 AM [facility] LAB MCV 107.1(H) 79.0 - 98.0 FL LAB HEMETOLOGY METHOD 09/02/2024 9:48 AM [facility] LAB MCH 33.7(H) 27.0 - 32.0 pcg LAB HEMETOLOGY METHOD 09/02/2024 9:48 AM [facility] LAB MCHC 31.4(L) 32.0 - 37.0 g/dL LAB HEMETOLOGY METHOD 09/02/2024 9:48 AM [facility] LAB RDW 14.4 11.0 - 15.0 % LAB HEMETOLOGY METHOD 09/02/2024 9:48 AM [facility] LAB Platelets 352 130 - 400 K/[facility] LAB HEMETOLOGY METHOD 09/02/2024 9:48 AM [facility] LAB MPV 9.4 7.0 - 11.0 FL LAB HEMETOLOGY METHOD 09/02/2024 9:48 AM [facility] LAB NRBC 0.0 <1.0 % LAB HEMETOLOGY METHOD 09/02/2024 9:48 AM [facility] LAB NRBC Absolute 0.00 <0.10 K/mcL LAB HEMETOLOGY METHOD 09/02/2024 9:48 AM [facility] LAB Blood Venous blood specimen / Unknown Venipuncture / Unknown 09/02/2024 6:38 AM EST 09/02/2024 9:22 AM EST Doris Vázquez MD LAB BLOOD ORDERABLES Fin al Result [facility] ([facility]) [facility] LAB [address] [place] [address], documented in this encounter Visit Diagnoses Diagnosis Gastro-esophageal reflux disease with esophagitis, without bleeding Essential (primary) hypertension Unspecified essential hypertension documented in this encounter Care Teams Back End Architect Relationship Specialty Start Date End Date Doris Vázquez MD [address] [place] [phone] PCP - General Family Medicine 08/01/24 documented as of this encounter
--- OUTSIDE RECORDS SUMMARY | 2025-08-16 14:57 | XMS_ITS | Clinical Summary ---
Author Organization LL [facility] Address [address] [place] [address] Phone Care Team Providers Care Engineering Program Manager Name Role Phone Elder, Doris Daniel MD Primary Care Provider + Social History Tobacco Use Types Packs/Day Years [...] (1 - Tdap) 01/01/1959 Pneumococcal Vaccine: 50+ Ye ars (1 of 1 - PCV) 01/01/1990 Zoster Vaccines (1 of 2) 01/01/1990 RSV Immunization Adult Patie nts (1 - 1-dose 75+ series) 01/01/2015 Falls Risk Assessment 08/01/2024 Medicare Annual Wellness Visit 08/01/2024 Osteoporosis Screening (Bone Density Screening) 08/01/2024 Social Influencers of Health Screening 08/01/2024 Depression Screening 09/22/2024 COVID-19 Vaccine ( - 2024-2 6 season) 2025 Influenza Vaccine (#1) 2025 HIB Vaccines Aged Out No longer eligi [...] to complete this topic RSV Immunization Patients Un tiny 20 months Aged Out No longer eligible b ased on patient's age to complete this topic Varicella Vaccines Aged Out No longer eligible based on patient's age to complete this topic Insurance MEDICARE UN[employer] MEDICARE ADVANTAGE Care Teams Engineering Program Manager Relationship Specialty Start Date End Date Doris Vázquez MD [address] [address] PCP - General Family Medicine 08/01/24
--- OUTSIDE RECORDS SUMMARY | 2025-08-16 14:57 | XMS_ITS | Encounter Summary ---
Author Organization [facility] Address [address] [place] [address] Care Team Providers Care Cordwainer Name Role Phone Doris Vázquez MD Primary Care Provider + Encounter Details Date Type Department Care Team (Late st Contact Info) Description 09/03/2024 Lab Requisition [facility] - Main Lab [address] [place] [address] Doris Vázquez MD [address] [address] Gastro-esophageal reflux disease with esophagitis, [...] LAB CHEMISTRY METHOD 09/06/2024 11:19 AM EST [facility] LAB Potassium 3.9 3.5 - 5.5 mmol/L LAB CHEMISTRY METHOD 09/06/2024 11:19 AM [facility] LAB Chloride 109 96 - 110 mmol/L LAB CHEMISTRY METHOD 09/06/2024 11:19 AM [facility] LAB CO2 26 21 - 32 mmol/L LAB CHEMISTRY METHOD 09/06/2024 11:19 AM [facility] LAB Anion Gap 8 3 - 11 LAB CHEMISTRY METHOD 09/06/2024 11:19 AM [facility] LAB Glucose 93 70 - 100 mg/dL LAB CHEMISTRY METHOD 09/06/2024 11:19 AM [facility] LAB BUN 6 5 - 25 mg/dL LAB CHEMISTRY METHOD 09/06/2024 11:19 AM [facility] LAB Creatinine 0.47(L) 0.50 - 1.10 mg/dL LAB CHEMISTRY METHOD 09/06/2024 11:19 AM [facility] LAB eGFR 94 >=60 mL/min/1. 73m2 LAB CHEMISTRY METHOD 09/06/2024 11:19 AM [facility] LAB Comment:Calculation based on the Chronic Kidney Disease Epidemiology Collaboration (CKD-EPI) equation refit without adjustment for race. BUN/Creatinine Ratio 12.8 LAB CHEMISTRY METHOD 09/06/2024 11:19 AM [facility] LAB Calcium 9.1 8.5 - 10.5 mg/dL LAB CHEMISTRY METHOD 09/06/2024 11:19 AM [facility] LAB Blood Venous blood specimen / Unknown Venipuncture / Unknown 09/06/2024 7:14 AM EST 09/06/2024 9:52 AM EST us Doris Vázquez MD LAB BLOOD ORDERABLES Fin al Result [facility] LAB [address] [place] [address], * (ABNORMAL) Complete blood count (09/06/2024 7:14 AM EST) WBC 4.8 4.8 - 10.8 K/mcL LAB HEMETOLOGY METHOD 09/06/2024 10:22 AM [facility] LAB RBC 3.30(L) 3.80 - 4.80 M/[facility] LAB HEMETOLOGY METHOD 09/06/2024 10:22 AM [facility] LAB Hemoglobin 11.0(L) 11.5 - 16.0 g/dL LAB HEMETOLOGY METHOD 09/06/2024 10:22 AM [facility] LAB Hematocrit 34.8(L) 35.0 - 47.0 % LAB HEMETOLOGY METHOD 09/06/2024 10:22 AM [facility] LAB MCV 105.5(H) 79.0 - 98.0 FL LAB HEMETOLOGY METHOD 09/06/2024 10:22 AM [facility] LAB MCH 33.3(H) 27.0 - 32.0 pcg LAB HEMETOLOGY METHOD 09/06/2024 10:22 AM [facility] LAB MCHC 31.6(L) 32.0 - 37.0 g/dL LAB HEMETOLOGY METHOD 09/06/2024 10:22 AM [facility] LAB RDW 14.4 11.0 - 15.0 % LAB HEMETOLOGY METHOD 09/06/2024 10:22 AM [facility] LAB Platelets 303 130 - 400 K/[facility] LAB HEMETOLOGY METHOD 09/06/2024 10:22 AM [facility] LAB MPV 9.7 7.0 - 11.0 FL LAB HEMETOLOGY METHOD 09/06/2024 10:22 AM [facility] LAB NRBC 0.0 <1.0 % LAB HEMETOLOGY METHOD 09/06/2024 10:22 AM [facility] LAB NRBC Absolute 0.00 <0.10 K/mcL LAB HEMETOLOGY METHOD 09/06/2024 10:22 AM [facility] LAB Blood Venous blood specimen / Unknown Venipuncture / Unknown 09/06/2024 7:14 AM EST 09/06/2024 9:52 AM EST Doris Vázquez MD LAB BLOOD ORDERABLES Fin al Result [facility] ([facility]) [facility] LAB [address] [place] [address], documented in this encounter Visit Diagnoses Diagnosis Gastro-esophageal reflux disease with esophagitis, without bleeding Essential (primary) hypertension Unspecified essential hypertension documented in this encounter Care Teams Cordwainer Relationship Specialty Start Date End Date Doris Vázquez MD [address] [place] [phone] PCP - General Family Medicine 08/01/24 documented as of this encounter
--- OUTSIDE RECORDS SUMMARY | 2025-08-16 14:57 | XMS_ITS | Encounter Summary ---
Author Organization [facility] Address [address] [place] [address] Care Team Providers Care Student Services Dean Name Role Phone Doris Vázquez MD Primary Care Provider + Encounter Details Date Type Department Care Team (Late st Contact Info) Description 08/21/2024 Lab Requisition [facility] - Main Lab 299 [facility] [place] [address] Doris Vázquez MD [address] [address] Gastro-esophageal reflux disease with esophagitis, [...] LAB CHEMISTRY METHOD 08/23/2024 2:53 PM EST [facility] Potassium 4.0 3.5 - 5.5 mmol/L LAB CHEMISTRY METHOD 08/23/2024 2:53 PM [facility] LAB Chloride 105 96 - 110 mmol/L LAB CHEMISTRY METHOD 08/23/2024 2:53 PM [facility] LAB CO2 26 21 - 32 mmol/L LAB CHEMISTRY METHOD 08/23/2024 2:53 PM [facility] LAB Anion Gap 7 3 - 11 LAB CHEMISTRY METHOD 08/23/2024 2:53 PM [facility] LAB Glucose 80 70 - 100 mg/dL LAB CHEMISTRY METHOD 08/23/2024 2:53 PM [facility] LAB BUN 9 5 - 25 mg/dL LAB CHEMISTRY METHOD 08/23/2024 2:53 PM [facility] LAB Creatinine 0.56 0.50 - 1.10 mg/dL LAB CHEMISTRY METHOD 08/23/2024 2:53 PM [facility] LAB eGFR 90 >=60 mL/min/1. 73m2 LAB CHEMISTRY METHOD 08/23/2024 2:53 PM [facility] LAB Comment:Calculation based on the Chronic Kidney Disease Epidemiology Collaboration (CKD-EPI) equation refit without adjustment for race. BUN/Creatinine Ratio 16.1 LAB CHEMISTRY METHOD 08/23/2024 2:53 PM [facility] LAB Calcium 9.3 8.5 - 10.5 mg/dL LAB CHEMISTRY METHOD 08/23/2024 2:53 PM [facility] LAB Blood Venous blood specimen / Unknown Venipuncture / Unknown 08/23/2024 7:48 AM EST 08/23/2024 11:38 AM EST us Doris Vázquez MD LAB BLOOD ORDERABLES Fin al Result [facility] LAB [address] [place] [address], * (ABNORMAL) Complete blood count (08/23/2024 7:48 AM EST) WBC 5.7 4.8 - 10.8 K/mcL LAB HEMETOLOGY METHOD 08/23/2024 12:53 PM [facility] LAB RBC 3.00(L) 3.80 - 4.80 M/mcL LAB HEMETOLOGY METHOD 08/23/2024 12:53 PM [facility] LAB Hemoglobin 10.4(L) 11.5 - 16.0 g/dL LAB HEMETOLOGY METHOD 08/23/2024 12:53 PM [facility] LAB Hematocrit 32.2(L) 35.0 - 47.0 % LAB HEMETOLOGY METHOD 08/23/2024 12:53 PM [facility] LAB MCV 108.1(H) 79.0 - 98.0 FL LAB HEMETOLOGY METHOD 08/23/2024 12:53 PM [facility] LAB MCH 34.9(H) 27.0 - 32.0 pcg LAB HEMETOLOGY METHOD 08/23/2024 12:53 PM [facility] LAB MCHC 32.3 32.0 - 37.0 g/dL LAB HEMETOLOGY METHOD 08/23/2024 12:53 PM [facility] LAB RDW 14.2 11.0 - 15.0 % LAB HEMETOLOGY METHOD 08/23/2024 12:53 PM [facility] LAB Platelets 246 130 - 400 K/mcL LAB HEMETOLOGY METHOD 08/23/2024 12:53 PM [facility] LAB MPV 10.3 7.0 - 11.0 FL LAB HEMETOLOGY METHOD 08/23/2024 12:53 PM [facility] LAB NRBC 0.0 <1.0 % LAB HEMETOLOGY METHOD 08/23/2024 12:53 PM [facility] LAB NRBC Absolute 0.00 <0.10 K/mcL LAB HEMETOLOGY METHOD 08/23/2024 12:53 PM [facility] LAB Blood Venous blood specimen / Unknown Venipuncture / Unknown 08/23/2024 7:48 AM EST 08/23/2024 11:37 AM EST us Doris Vázquez MD LAB BLOOD ORDERABLES Fin al Result [facility] ([facility]) [facility] LAB [address] [place] [address], documented in this encounter Visit Diagnoses Diagnosis Gastro-esophageal reflux disease with esophagitis, without bleeding Essential (primary) hypertension Unspecified essential hypertension documented in this encounter Care Teams Student Services Dean Relationship Specialty Start Date End Date Doris Vázquez MD [address] [place] [phone] PCP - General Family Medicine 08/01/24 documented as of this encounter
--- OUTSIDE RECORDS SUMMARY | 2025-08-16 14:57 | XMS_ITS | Encounter Summary ---
Author Organization [facility] Address [address] [place] [address] Care Team Providers Care Industrial Gas Production Operator Name Role Phone Doris Vázquez MD Primary Care Provider + Encounter Details Date Type Department Care Team (Late st Contact Info) Description 10/17/2024 Lab Requisition [facility] - Main Lab 299 [facility] [place] [address] Doris Vázquez MD [address] [phone] Essential (primary) hypertension; Anemia, unspecified Social History [...] unspecified documented in this encounter Care Teams Industrial Gas Production Operator Relationship Specialty Start Date End Date Doris Vázquez MD [address] [phone] PCP - General Family Medicine 08/01/24 documented as of this encounter
--- OUTSIDE RECORDS SUMMARY | 2025-08-16 14:57 | XMS_ITS | Encounter Summary ---
Author Organization [facility] Address [address] [place] [address] Care Team Providers Care Process Area Supervisor Name Role Phone Doris Vázquez MD Primary Care Provider + Encounter Details Date Type Department Care Team (Late st Contact Info) Description 08/06/2024 Lab Requisition [facility] - Main Lab 299 [facility] [place] [address] Doris Vázquez MD [address] [address] Gastro-esophageal reflux disease with esophagitis, [...] LAB CHEMISTRY METHOD 08/09/2024 12:51 PM EST [facility] Potassium 3.7 3.5 - 5.5 mmol/L LAB CHEMISTRY METHOD 08/09/2024 12:51 PM [facility] Chloride 106 96 - 110 mmol/L LAB CHEMISTRY METHOD 08/09/2024 12:51 PM [facility] CO2 24 21 - 32 mmol/L LAB CHEMISTRY METHOD 08/09/2024 12:51 PM [facility] Anion Gap 10 3 - 11 LAB CHEMISTRY METHOD 08/09/2024 12:51 PM [facility] Glucose 88 70 - 100 mg/dL LAB CHEMISTRY METHOD 08/09/2024 12:51 PM [facility] BUN 9 5 - 25 mg/dL LAB CHEMISTRY METHOD 08/09/2024 12:51 PM [facility] Creatinine 0.57 0.50 - 1.10 mg/dL LAB CHEMISTRY METHOD 08/09/2024 12:51 PM [facility] LAB eGFR 90 >=60 mL/min/1. 73m2 LAB CHEMISTRY METHOD 08/09/2024 12:51 PM [facility] LAB Comment:Calculation based on the Chronic Kidney Disease Epidemiology Collaboration (CKD-EPI) equation refit without adjustment for race. BUN/Creatinine Ratio 15.8 LAB CHEMISTRY METHOD 08/09/2024 12:51 PM [facility] Calcium 9.3 8.5 - 10.5 mg/dL LAB CHEMISTRY METHOD 08/09/2024 12:51 PM [facility] Blood Venous blood specimen / Unknown Venipuncture / Unknown 08/09/2024 6:59 AM EST 08/09/2024 11:06 AM EST us Doris Vázquez MD LAB BLOOD ORDERABLES Fin al Result [facility] LAB [address] [place] [address], * (ABNORMAL) Complete blood count (08/09/2024 6:59 AM EST) WBC 4.5(L) 4.8 - 10.8 K/mcL LAB HEMETOLOGY METHOD 08/09/2024 12:54 PM [facility] RBC 3.30(L) 3.80 - 4.80 M/mcL LAB HEMETOLOGY METHOD 08/09/2024 12:54 PM [facility] Hemoglobin 11.5 11.5 - 16.0 g/dL LAB HEMETOLOGY METHOD 08/09/2024 12:54 PM [facility] Hematocrit 36.5 35.0 - 47.0 % LAB HEMETOLOGY METHOD 08/09/2024 12:54 PM [facility] LAB MCV 112.0(H) 79.0 - 98.0 FL LAB HEMETOLOGY METHOD 08/09/2024 12:54 PM [facility] MCH 35.3(H) 27.0 - 32.0 pcg LAB HEMETOLOGY METHOD 08/09/2024 12:54 PM [facility] MCHC 31.5(L) 32.0 - 37.0 g/dL LAB HEMETOLOGY METHOD 08/09/2024 12:54 PM [facility] LAB RDW 15.9(H) 11.0 - 15.0 % LAB HEMETOLOGY METHOD 08/09/2024 12:54 PM [facility] LAB Platelets 141 130 - 400 K/mcL LAB HEMETOLOGY METHOD 08/09/2024 12:54 PM [facility] MPV 11.5(H) 7.0 - 11.0 FL LAB HEMETOLOGY METHOD 08/09/2024 12:54 PM [facility] LAB NRBC 0.0 <1.0 % LAB HEMETOLOGY METHOD 08/09/2024 12:54 PM [facility] NRBC Absolute 0.00 <0.10 K/mcL LAB HEMETOLOGY METHOD 08/09/2024 12:54 PM [facility] Blood Venous blood specimen / Unknown Venipuncture / Unknown 08/09/2024 6:59 AM EST 08/09/2024 11:06 AM EST Doris Vázquez MD LAB BLOOD ORDERABLES Fin al Result [facility] ([facility]) [facility] [address] [place] [address], documented in this encounter Visit Diagnoses Diagnosis Gastro-esophageal reflux disease with esophagitis, without bleeding Essential (primary) hypertension Unspecified essential hypertension documented in this encounter Care Teams Process Area Supervisor Relationship Specialty Start Date End Date Doris Vázquez MD [address] [place] [phone] PCP - General Family Medicine 08/01/24 documented as of this encounter
--- OUTSIDE RECORDS SUMMARY | 2025-08-16 14:57 | XMS_ITS | Encounter Summary ---
Author Organization [facility] Address [address] [place] [address] Care Team Providers Care Timber Trimmer Name Role Phone Doris Vázquez MD Primary Care Provider + Encounter Details Date Type Department Care Team (Late st Contact Info) Description 08/18/2024 Lab Requisition [facility] - Main Lab 299 [facility] [place] [address] Doris Vázquez MD [address] [address] Gastro-esophageal reflux disease with esophagitis, [...] LAB CHEMISTRY METHOD 08/20/2024 11:02 AM EST [facility] ([facility] Potassium 4.2 3.5 - 5.5 mmol/L LAB CHEMISTRY METHOD 08/20/2024 11:02 AM [facility] LAB Chloride 106 96 - 110 mmol/L LAB CHEMISTRY METHOD 08/20/2024 11:02 AM [facility] LAB CO2 28 21 - 32 mmol/L LAB CHEMISTRY METHOD 08/20/2024 11:02 AM [facility] LAB Anion Gap 6 3 - 11 LAB CHEMISTRY METHOD 08/20/2024 11:02 AM [facility] LAB Glucose 89 70 - 100 mg/dL LAB CHEMISTRY METHOD 08/20/2024 11:02 AM [facility] LAB BUN 9 5 - 25 mg/dL LAB CHEMISTRY METHOD 08/20/2024 11:02 AM [facility] LAB Creatinine 0.56 0.50 - 1.10 mg/dL LAB CHEMISTRY METHOD 08/20/2024 11:02 AM [facility] LAB eGFR 90 >=60 mL/min/1. 73m2 LAB CHEMISTRY METHOD 08/20/2024 11:02 AM [facility] LAB Comment:Calculation based on the Chronic Kidney Disease Epidemiology Collaboration (CKD-EPI) equation refit without adjustment for race. BUN/Creatinine Ratio 16.1 LAB CHEMISTRY METHOD 08/20/2024 11:02 AM [facility] LAB Calcium 9.1 8.5 - 10.5 mg/dL LAB CHEMISTRY METHOD 08/20/2024 11:02 AM [facility] LAB Blood Venous blood specimen / Unknown Venipuncture / Unknown 08/20/2024 6:56 AM EST 08/20/2024 9:56 AM EST us Doris Vázquez MD LAB BLOOD ORDERABLES Fin al Result [facility] LAB [address] [place] [address], * (ABNORMAL) Complete blood count (08/20/2024 6:56 AM EST) WBC 5.7 4.8 - 10.8 K/[facility] LAB HEMETOLOGY METHOD 08/20/2024 10:38 AM [facility] LAB RBC 2.80(L) 3.80 - 4.80 M/[facility] LAB HEMETOLOGY METHOD 08/20/2024 10:38 AM [facility] LAB Hemoglobin 9.7(L) 11.5 - 16.0 g/dL LAB HEMETOLOGY METHOD 08/20/2024 10:38 AM [facility] LAB Hematocrit 30.3(L) 35.0 - 47.0 % LAB HEMETOLOGY METHOD 08/20/2024 10:38 AM [facility] LAB MCV 110.2(H) 79.0 - 98.0 FL LAB HEMETOLOGY METHOD 08/20/2024 10:38 AM [facility] LAB MCH 35.3(H) 27.0 - 32.0 pcg LAB HEMETOLOGY METHOD 08/20/2024 10:38 AM [facility] LAB MCHC 32.0 32.0 - 37.0 g/dL LAB HEMETOLOGY METHOD 08/20/2024 10:38 AM [facility] LAB RDW 14.4 11.0 - 15.0 % LAB HEMETOLOGY METHOD 08/20/2024 10:38 AM [facility] LAB Platelets 200 130 - 400 K/mcL LAB HEMETOLOGY METHOD 08/20/2024 10:38 AM [facility] LAB MPV 10.5 7.0 - 11.0 FL LAB HEMETOLOGY METHOD 08/20/2024 10:38 AM [facility] LAB NRBC 0.0 <1.0 % LAB HEMETOLOGY METHOD 08/20/2024 10:38 AM [facility] LAB NRBC Absolute 0.00 <0.10 K/[facility] LAB HEMETOLOGY METHOD 08/20/2024 10:38 AM [facility] LAB Blood Venous blood specimen / Unknown Venipuncture / Unknown 08/20/2024 6:56 AM EST 08/20/2024 9:56 AM EST us Doris Vázquez MD LAB BLOOD ORDERABLES Fin al Result [facility] ([facility]) [facility] [address] [place] [address], documented in this encounter Visit Diagnoses Diagnosis Gastro-esophageal reflux disease with esophagitis, without bleeding Essential (primary) hypertension Unspecified essential hypertension documented in this encounter Care Teams Timber Trimmer Relationship Specialty Start Date End Date Doris Vázquez MD [address] [place] [phone] PCP - General Family Medicine 08/01/24 documented as of this encounter
--- OUTSIDE RECORDS SUMMARY | 2025-08-16 14:57 | XMS_ITS | Encounter Summary ---
Author Organization [facility] Address [address] [place] [address] Care Team Providers Care Cinder Pit Worker Name Role Phone Doris Vázquez MD Primary Care Provider + Encounter Details Date Type Department Care Team (Late st Contact Info) Description 07/24/2024 Lab Requisition [facility] - Main Lab 299 [facility] [place] [address] Doris Vázquez MD [address] [address] Gastro-esophageal reflux disease with esophagitis, [...] Travel phlebotomy fee (07/26/2024 6:51 AM EST) [facility] TRAVEL PHLEBOTOMY FEE Completed 07/26/2024 1:01 PM [facility] LAB Blood Venous blood specimen / Unknown 07/26/2024 6:51 AM EST 07/26/2024 12:07 PM EST us Doris Vzáquez MD LAB BLOOD ORDERABLES Fin al Result [facility] LAB [address] [place] [address], * Basic metabolic panel (07/26/2024 6:51 AM EST) Sodium 141 133 - 145 mmol/L LAB CHEMISTRY METHOD 07/26/2024 2:03 PM [facility] LAB Potassium 4.2 3.5 - 5.5 mmol/L LAB CHEMISTRY METHOD 07/26/2024 2:03 PM [facility] LAB Chloride 108 96 - 110 mmol/L LAB CHEMISTRY METHOD 07/26/2024 2:03 PM [facility] LAB CO2 27 21 - 32 mmol/L LAB CHEMISTRY METHOD 07/26/2024 2:03 PM [facility] LAB Anion Gap 6 3 - 11 LAB CHEMISTRY METHOD 07/26/2024 2:03 PM [facility] LAB Glucose 77 70 - 100 mg/dL LAB CHEMISTRY METHOD 07/26/2024 2:03 PM [facility] LAB BUN 11 5 - 25 mg/dL LAB CHEMISTRY METHOD 07/26/2024 2:03 PM [facility] LAB Creatinine 0.56 0.50 - 1.10 mg/dL LAB CHEMISTRY METHOD 07/26/2024 2:03 PM [facility] LAB eGFR 90 >=60 mL/min/1. 73m2 LAB CHEMISTRY METHOD 07/26/2024 2:03 PM [facility] LAB Comment:Calculation based on the Chronic Kidney Disease Epidemiology Collaboration (CKD-EPI) equation refit without adjustment for race. BUN/Creatinine Ratio 19.6 LAB CHEMISTRY METHOD 07/26/2024 2:03 PM [facility] LAB Calcium 9.0 8.5 - 10.5 mg/dL LAB CHEMISTRY METHOD 07/26/2024 2:03 PM [facility] LAB Blood Venous blood specimen / Unknown Venipuncture / Unknown 07/26/2024 6:51 AM EST 07/26/2024 12:07 PM EST us Doris Vázquez MD LAB BLOOD ORDERABLES Fin al Result [facility] LAB [address] [place] [address], * (ABNORMAL) Complete blood count (07/26/2024 6:51 AM EST) WBC 3.6(L) 4.8 - 10.8 K/mcL LAB HEMETOLOGY METHOD 07/26/2024 1:48 PM [facility] LAB RBC 2.80(L) 3.80 - 4.80 M/mcL LAB HEMETOLOGY METHOD 07/26/2024 1:48 PM [facility] LAB Hemoglobin 9.6(L) 11.5 - 16.0 g/dL LAB HEMETOLOGY METHOD 07/26/2024 1:48 PM [facility] LAB Hematocrit 31.7(L) 35.0 - 47.0 % LAB HEMETOLOGY METHOD 07/26/2024 1:48 PM [facility] LAB MCV 115.3(H) 79.0 - 98.0 FL LAB HEMETOLOGY METHOD 07/26/2024 1:48 PM [facility] LAB MCH 34.9(H) 27.0 - 32.0 pcg LAB HEMETOLOGY METHOD 07/26/2024 1:48 PM [facility] LAB MCHC 30.3(L) 32.0 - 37.0 g/dL LAB HEMETOLOGY METHOD 07/26/2024 1:48 PM EST [facility] LAB RDW 19.5(H) 11.0 - 15.0 % LAB HEMETOLOGY METHOD 07/26/2024 1:48 PM EST [facility] LAB Platelets 212 130 - 400 K/mcL LAB HEMETOLOGY METHOD 07/26/2024 1:48 PM EST [facility] LAB MPV 10.8 7.0 - 11.0 FL LAB HEMETOLOGY METHOD 07/26/2024 1:48 PM EST [facility] LAB NRBC 0.0 <1.0 % LAB HEMETOLOGY METHOD 07/26/2024 1:48 PM EST [facility] LAB NRBC Absolute 0.00 <0.10 K/mcL LAB HEMETOLOGY METHOD 07/26/2024 1:48 PM [facility] LAB Blood Venous blood specimen / Unknown Venipuncture / Unknown 07/26/2024 6:51 AM EST 07/26/2024 12:07 PM EST us Doris Vázquez MD LAB BLOOD ORDERABLES Fin al Result [facility] LAB [address] [place] [address], documented in this encounter Visit Diagnoses Diagnosis Gastro-esophageal reflux disease with esophagitis, without bleeding Essential (primary) hypertension Unspecified essential hypertension documented in this encounter Care Teams Cinder Pit Worker Relationship Specialty Start Date End Date Doris Vázquez MD [address] [place] [phone] PCP - General Family Medicine 08/01/24 documented as of this encounter
--- OUTSIDE RECORDS SUMMARY | 2025-08-16 14:57 | XMS_ITS | Encounter Summary ---
Author Organization [facility] Address [address] [place] [address] Care Team Providers Care Radioisotope Technologist Name Role Phone Doris Vázquez MD Primary Care Provider + Encounter Details Date Type Department Care Team (Late st Contact Info) Description 09/08/2024 Lab Requisition [facility] - Main Lab 299 [facility] [place] [address] Doris Vázquez MD [address] [address] Gastro-esophageal reflux disease with esophagitis, [...] LAB CHEMISTRY METHOD 09/09/2024 9:50 AM EST [facility] ([facility] LAB Potassium 4.0 3.5 - 5.5 mmol/L LAB CHEMISTRY METHOD 09/09/2024 9:50 AM [facility] LAB Chloride 106 96 - 110 mmol/L LAB CHEMISTRY METHOD 09/09/2024 9:50 AM [facility] LAB CO2 28 21 - 32 mmol/L LAB CHEMISTRY METHOD 09/09/2024 9:50 AM [facility] LAB Anion Gap 8 3 - 11 LAB CHEMISTRY METHOD 09/09/2024 9:50 AM [facility] LAB Glucose 93 70 - 100 mg/dL LAB CHEMISTRY METHOD 09/09/2024 9:50 AM [facility] LAB BUN 9 5 - 25 mg/dL LAB CHEMISTRY METHOD 09/09/2024 9:50 AM [facility] LAB Creatinine 0.60 0.50 - 1.10 mg/dL LAB CHEMISTRY METHOD 09/09/2024 9:50 AM [facility] LAB eGFR 89 >=60 mL/min/1. 73m2 LAB CHEMISTRY METHOD 09/09/2024 9:50 AM [facility] LAB Comment:Calculation based on the Chronic Kidney Disease Epidemiology Collaboration (CKD-EPI) equation refit without adjustment for race. BUN/Creatinine Ratio 15.0 LAB CHEMISTRY METHOD 09/09/2024 9:50 AM [facility] LAB Calcium 9.0 8.5 - 10.5 mg/dL LAB CHEMISTRY METHOD 09/09/2024 9:50 AM [facility] LAB Blood Venous blood specimen / Unknown Venipuncture / Unknown 09/09/2024 6:06 AM EST 09/09/2024 9:06 AM EST us Doris Vázquez MD LAB BLOOD ORDERABLES Fin al Result [facility] [address] [place] [address], * (ABNORMAL) Complete blood count (09/09/2024 6:06 AM EST) WBC 5.4 4.8 - 10.8 K/mcL LAB HEMETOLOGY METHOD 09/09/2024 9:28 AM [facility] LAB RBC 3.20(L) 3.80 - 4.80 M/mcL LAB HEMETOLOGY METHOD 09/09/2024 9:28 AM [facility] LAB Hemoglobin 10.6(L) 11.5 - 16.0 g/dL LAB HEMETOLOGY METHOD 09/09/2024 9:28 AM [facility] LAB Hematocrit 33.5(L) 35.0 - 47.0 % LAB HEMETOLOGY METHOD 09/09/2024 9:28 AM [facility] LAB MCV 105.3(H) 79.0 - 98.0 FL LAB HEMETOLOGY METHOD 09/09/2024 9:28 AM [facility] LAB MCH 33.3(H) 27.0 - 32.0 pcg LAB HEMETOLOGY METHOD 09/09/2024 9:28 AM [facility] LAB MCHC 31.6(L) 32.0 - 37.0 g/dL LAB HEMETOLOGY METHOD 09/09/2024 9:28 AM [facility] LAB RDW 14.6 11.0 - 15.0 % LAB HEMETOLOGY METHOD 09/09/2024 9:28 AM [facility] LAB Platelets 270 130 - 400 K/mcL LAB HEMETOLOGY METHOD 09/09/2024 9:28 AM [facility] LAB MPV 9.7 7.0 - 11.0 FL LAB HEMETOLOGY METHOD 09/09/2024 9:28 AM [facility] LAB NRBC 0.0 <1.0 % LAB HEMETOLOGY METHOD 09/09/2024 9:28 AM [facility] LAB NRBC Absolute 0.00 <0.10 K/mcL LAB HEMETOLOGY METHOD 09/09/2024 9:28 AM EST [facility] Blood Venous blood specimen / Unknown Venipuncture / Unknown 09/09/2024 6:06 AM EST 09/09/2024 9:06 AM EST us Doris Vázquez MD LAB BLOOD ORDERABLES Fin al Result [facility] ([facility]) [facility] [address] [place] [address], documented in this encounter Visit Diagnoses Diagnosis Gastro-esophageal reflux disease with esophagitis, without bleeding Essential (primary) hypertension Unspecified essential hypertension documented in this encounter Care Teams Radioisotope Technologist Relationship Specialty Start Date End Date Doris Vázquez MD [address] [place] [phone] PCP - General Family Medicine 08/01/24 documented as of this encounter
--- OUTSIDE RECORDS SUMMARY | 2025-08-16 14:57 | XMS_ITS | Encounter Summary ---
Author Organization [facility] Address [address] [place] [address] Care Team Providers Care Electronic Assembler Name Role Phone Doris Vázquez MD Primary Care Provider + Encounter Details Date Type Department Care Team (Late st Contact Info) Description 08/04/2024 Lab Requisition [facility] - Main Lab 299 [facility] [place] [address] Doris Vázquez MD [address] [address] Gastro-esophageal reflux disease with esophagitis, [...] LAB CHEMISTRY METHOD 08/05/2024 11:23 AM EST [facility] Potassium 3.7 3.5 - 5.5 mmol/L LAB CHEMISTRY METHOD 08/05/2024 11:23 AM [facility] LAB Chloride 105 96 - 110 mmol/L LAB CHEMISTRY METHOD 08/05/2024 11:23 AM [facility] LAB CO2 25 21 - 32 mmol/L LAB CHEMISTRY METHOD 08/05/2024 11:23 AM [facility] LAB Anion Gap 8 3 - 11 LAB CHEMISTRY METHOD 08/05/2024 11:23 AM [facility] LAB Glucose 91 70 - 100 mg/dL LAB CHEMISTRY METHOD 08/05/2024 11:23 AM [facility] LAB BUN 10 5 - 25 mg/dL LAB CHEMISTRY METHOD 08/05/2024 11:23 AM [facility] LAB Creatinine 0.71 0.50 - 1.10 mg/dL LAB CHEMISTRY METHOD 08/05/2024 11:23 AM [facility] LAB eGFR 84 >=60 mL/min/1. 73m2 LAB CHEMISTRY METHOD 08/05/2024 11:23 AM [facility] LAB Comment:Calculation based on the Chronic Kidney Disease Epidemiology Collaboration (CKD-EPI) equation refit without adjustment for race. BUN/Creatinine Ratio 14.1 LAB CHEMISTRY METHOD 08/05/2024 11:23 AM [facility] LAB Calcium 9.2 8.5 - 10.5 mg/dL LAB CHEMISTRY METHOD 08/05/2024 11:23 AM [facility] LAB Blood Venous blood specimen / Unknown Venipuncture / Unknown 08/05/2024 6:53 AM EST 08/05/2024 10:11 AM EST us Doris Vázquez MD LAB BLOOD ORDERABLES Fin al Result [facility] [address] [place] [address], * (ABNORMAL) Complete blood count (08/05/2024 6:53 AM EST) WBC 6.8 4.8 - 10.8 K/mcL LAB HEMETOLOGY METHOD 08/05/2024 11:04 AM [facility] LAB RBC 3.20(L) 3.80 - 4.80 M/mcL LAB HEMETOLOGY METHOD 08/05/2024 11:04 AM [facility] LAB Hemoglobin 11.1(L) 11.5 - 16.0 g/dL LAB HEMETOLOGY METHOD 08/05/2024 11:04 AM [facility] LAB Hematocrit 34.5(L) 35.0 - 47.0 % LAB HEMETOLOGY METHOD 08/05/2024 11:04 AM [facility] LAB MCV 109.2(H) 79.0 - 98.0 FL LAB HEMETOLOGY METHOD 08/05/2024 11:04 AM [facility] LAB MCH 35.1(H) 27.0 - 32.0 pcg LAB HEMETOLOGY METHOD 08/05/2024 11:04 AM [facility] LAB MCHC 32.2 32.0 - 37.0 g/dL LAB HEMETOLOGY METHOD 08/05/2024 11:04 AM [facility] LAB RDW 16.5(H) 11.0 - 15.0 % LAB HEMETOLOGY METHOD 08/05/2024 11:04 AM [facility] LAB Platelets 158 130 - 400 K/mcL LAB HEMETOLOGY METHOD 08/05/2024 11:04 AM [facility] LAB MPV 11.4(H) 7.0 - 11.0 FL LAB HEMETOLOGY METHOD 08/05/2024 11:04 AM [facility] LAB NRBC 0.0 <1.0 % LAB HEMETOLOGY METHOD 08/05/2024 11:04 AM [facility] LAB NRBC Absolute 0.00 <0.10 K/mcL LAB HEMETOLOGY METHOD 08/05/2024 11:04 AM [facility] LAB Blood Venous blood specimen / Unknown Venipuncture / Unknown 08/05/2024 6:53 AM EST 08/05/2024 10:11 AM EST Doris Vázquez MD LAB BLOOD ORDERABLES Fin al Result [facility]) [facility] [address] [place] [address], documented in this encounter Visit Diagnoses Diagnosis Gastro-esophageal reflux disease with esophagitis, without bleeding Essential (primary) hypertension Unspecified essential hypertension documented in this encounter Care Teams Electronic Assembler Relationship Specialty Start Date End Date Doris Vázquez MD [address] [place] [phone] PCP - General Family Medicine 08/01/24 documented as of this encounter
--- OUTSIDE RECORDS SUMMARY | 2025-08-16 14:57 | XMS_ITS | Encounter Summary ---
Author Organization [facility] Address [address] [place] [address] Care Team Providers Care Dry Ice Machine Operator Name Role Phone Doris Vázquez MD Primary Care Provider + Encounter Details Date Type Department Care Team (Late st Contact Info) Description 08/01/2024 Lab Requisition [facility] - Main Lab [address] [facility] [place] [address] Doris Vázquez MD [address] [phone] Gastro-esophageal reflux disease with esophagitis, without bleeding; [...] LAB CHEMISTRY METHOD 08/02/2024 12:36 PM EST [facility] Potassium 3.7 3.5 - 5.5 mmol/L LAB CHEMISTRY METHOD 08/02/2024 12:36 PM [facility] LAB Chloride 108 96 - 110 mmol/L LAB CHEMISTRY METHOD 08/02/2024 12:36 PM [facility] LAB CO2 25 21 - 32 mmol/L LAB CHEMISTRY METHOD 08/02/2024 12:36 PM [facility] LAB Anion Gap 8 3 - 11 LAB CHEMISTRY METHOD 08/02/2024 12:36 PM [facility] LAB Glucose 80 70 - 100 mg/dL LAB CHEMISTRY METHOD 08/02/2024 12:36 PM [facility] LAB BUN 10 5 - 25 mg/dL LAB CHEMISTRY METHOD 08/02/2024 12:36 PM [facility] LAB Creatinine 0.59 0.50 - 1.10 mg/dL LAB CHEMISTRY METHOD 08/02/2024 12:36 PM [facility] LAB eGFR 89 >=60 mL/min/1. 73m2 LAB CHEMISTRY METHOD 08/02/2024 12:36 PM [facility] LAB Comment:Calculation based on the Chronic Kidney Disease Epidemiology Collaboration (CKD-EPI) equation refit without adjustment for race. BUN/Creatinine Ratio 16.9 LAB CHEMISTRY METHOD 08/02/2024 12:36 PM [facility] LAB Calcium 9.6 8.5 - 10.5 mg/dL LAB CHEMISTRY METHOD 08/02/2024 12:36 PM [facility] LAB Blood Venous blood specimen / Unknown 08/02/2024 6:48 AM EST 08/02/2024 10:53 AM EST us Doris Vázquez MD LAB BLOOD ORDERABLES Fin al Result [facility] LAB [address] [place] [address], * (ABNORMAL) Complete blood count (08/02/2024 6:48 AM EST) WBC 3.4(L) 4.8 - 10.8 K/mcL LAB HEMETOLOGY METHOD 08/02/2024 1:03 PM [facility] LAB RBC 3.20(L) 3.80 - 4.80 M/mcL LAB HEMETOLOGY METHOD 08/02/2024 1:03 PM [facility] LAB Hemoglobin 11.1(L) 11.5 - 16.0 g/dL LAB HEMETOLOGY METHOD 08/02/2024 1:03 PM [facility] LAB Hematocrit 36.2 35.0 - 47.0 % LAB HEMETOLOGY METHOD 08/02/2024 1:03 PM [facility] LAB MCV 113.1(H) 79.0 - 98.0 FL LAB HEMETOLOGY METHOD 08/02/2024 1:03 PM [facility] LAB MCH 34.7(H) 27.0 - 32.0 pcg LAB HEMETOLOGY METHOD 08/02/2024 1:03 PM [facility] LAB MCHC 30.7(L) 32.0 - 37.0 g/dL LAB HEMETOLOGY METHOD 08/02/2024 1:03 PM [facility] LAB RDW 17.2(H) 11.0 - 15.0 % LAB HEMETOLOGY METHOD 08/02/2024 1:03 PM [facility] LAB Platelets 178 130 - 400 K/mcL LAB HEMETOLOGY METHOD 08/02/2024 1:03 PM [facility] LAB MPV 11.0 7.0 - 11.0 FL LAB HEMETOLOGY METHOD 08/02/2024 1:03 PM [facility] LAB NRBC 0.0 <1.0 % LAB HEMETOLOGY METHOD 08/02/2024 1:03 PM [facility] LAB NRBC Absolute 0.00 <0.10 K/mcL LAB HEMETOLOGY METHOD 08/02/2024 1:03 PM [facility] LAB Blood Venous blood specimen / Unknown Venipuncture / Unknown 08/02/2024 6:48 AM EST 08/02/2024 10:52 AM EST Doris Vázquez MD LAB BLOOD ORDERABLES Fin al Result [facility] [address] [place] [address], documented in this encounter Visit Diagnoses Diagnosis Gastro-esophageal reflux disease with esophagitis, without bleeding Essential (primary) hypertension Unspecified essential hypertension documented in this encounter Care Teams Dry Ice Machine Operator Relationship Specialty Start Date End Date Doris Vázquez MD [address] [place] [id number] PCP - General Family Medicine 08/01/24 documented as of this encounter
--- OUTSIDE RECORDS SUMMARY | 2025-08-16 14:57 | XMS_ITS | Encounter Summary ---
Author Organization [employer] [facility] Address [address] [place] [address] Care Team Providers Care Orchardist Name Role Phone Doris Vázquez MD Primary Care Provider + Encounter Details Date Type Department Care Team (Late st Contact Info) Description 09/14/2024 Lab Requisition [facility] - Main Lab [address] [facility] [place] [address] Doris Vázquez MD [address] [facility] [address] [place] [address] Gastro-esophageal reflux disease with esophagitis, [...] AM EST) WBC 6.2 4.8 - 10.8 K/[facility] LAB HEMETOLOGY METHOD 09/16/2024 10:02 AM [facility] LAB RBC 3.30(L) 3.80 - 4.80 M/mcL LAB HEMETOLOGY METHOD 09/16/2024 10:02 AM [facility] LAB Hemoglobin 10.9(L) 11.5 - 16.0 g/dL LAB HEMETOLOGY METHOD 09/16/2024 10:02 AM [facility] LAB Hematocrit 34.7(L) 35.0 - 47.0 % LAB HEMETOLOGY METHOD 09/16/2024 10:02 AM [facility] LAB MCV 105.5(H) 79.0 - 98.0 FL LAB HEMETOLOGY METHOD 09/16/2024 10:02 AM [facility] LAB MCH 33.1(H) 27.0 - 32.0 pcg LAB HEMETOLOGY METHOD 09/16/2024 10:02 AM [facility] LAB MCHC 31.4(L) 32.0 - 37.0 g/dL LAB HEMETOLOGY METHOD 09/16/2024 10:02 AM [facility] LAB RDW 14.6 11.0 - 15.0 % LAB HEMETOLOGY METHOD 09/16/2024 10:02 AM [facility] LAB Platelets 218 130 - 400 K/mcL LAB HEMETOLOGY METHOD 09/16/2024 10:02 AM [facility] LAB MPV 10.0 7.0 - 11.0 FL LAB HEMETOLOGY METHOD 09/16/2024 10:02 AM [facility] LAB NRBC 0.0 <1.0 % LAB HEMETOLOGY METHOD 09/16/2024 10:02 AM [facility] LAB NRBC Absolute 0.00 <0.10 K/mcL LAB HEMETOLOGY METHOD 09/16/2024 10:02 AM [facility] LAB Neutrophils Relative 62.7 % LAB HEMETOLOGY METHOD 09/16/2024 10:02 AM [facility] LAB Lymphocytes Relative 24.8 % LAB HEMETOLOGY METHOD 09/16/2024 10:02 AM [facility] LAB Monocytes Relative 8.3 % LAB HEMETOLOGY METHOD 09/16/2024 10:02 AM [facility] LAB Eosinophils Relative 3.7 % LAB HEMETOLOGY METHOD 09/16/2024 10:02 AM [facility] LAB Basophils Relative 0.2 % LAB HEMETOLOGY METHOD 09/16/2024 10:02 AM [facility] LAB Immature Granulocytes Relative 0.3 % LAB HEMETOLOGY METHOD 09/16/2024 10:02 AM [facility] LAB Neutrophils Absolute 3.91 1.50 - 7.00 K/mcL LAB HEMETOLOGY METHOD 09/16/2024 10:02 AM [facility] LAB Lymphocytes Absolute 1.55 1.00 - 5.00 K/mcL LAB HEMETOLOGY METHOD 09/16/2024 10:02 AM [facility] LAB Monocytes Absolute 0.52 0.20 - 1.00 K/mcL LAB HEMETOLOGY METHOD 09/16/2024 10:02 AM [facility] LAB Eosinophils Absolute 0.23 0.00 - 0.50 K/mcL LAB HEMETOLOGY METHOD 09/16/2024 10:02 AM [facility] LAB Basophils Absolute 0.01 0.00 - 0.20 K/mcL LAB HEMETOLOGY METHOD 09/16/2024 10:02 AM [facility] LAB Immature Granulocytes Absolute 0.02 0.00 - 0.03 K/mcL LAB HEMETOLOGY METHOD 09/16/2024 10:02 AM [facility] LAB Blood Venous blood specimen / Unknown Venipuncture / Unknown 09/16/2024 6:40 AM EST 09/16/2024 9:40 AM EST us Doris Vázquez MD LAB BLOOD ORDERABLES Fin al Result [facility] LAB [address] [place] [address], * Basic metabolic panel (09/16/2024 6:40 AM EST) Sodium 140 133 - 145 mmol/L LAB CHEMISTRY METHOD 09/16/2024 10:29 AM [facility] LAB Potassium 4.0 3.5 - 5.5 mmol/L LAB CHEMISTRY METHOD 09/16/2024 10:29 AM [facility] LAB Chloride 107 96 - 110 mmol/L LAB CHEMISTRY METHOD 09/16/2024 10:29 AM [facility] LAB CO2 28 21 - 32 mmol/L LAB CHEMISTRY METHOD 09/16/2024 10:29 AM [facility] LAB Anion Gap 5 3 - 11 LAB CHEMISTRY METHOD 09/16/2024 10:29 AM [facility] LAB Glucose 90 70 - 100 mg/dL LAB CHEMISTRY METHOD 09/16/2024 10:29 AM [facility] LAB BUN 8 5 - 25 mg/dL LAB CHEMISTRY METHOD 09/16/2024 10:29 AM [facility] LAB Creatinine 0.59 0.50 - 1.10 mg/dL LAB CHEMISTRY METHOD 09/16/2024 10:29 AM [facility] LAB eGFR 89 >=60 mL/min/1. 73m2 LAB CHEMISTRY METHOD 09/16/2024 10:29 AM [facility] LAB Comment:Calculation based on the Chronic Kidney Disease Epidemiology Collaboration (CKD-EPI) equation refit without adjustment for race. BUN/Creatinine Ratio 13.6 LAB CHEMISTRY METHOD 09/16/2024 10:29 AM [facility] LAB Calcium 9.1 8.5 - 10.5 mg/dL LAB CHEMISTRY METHOD 09/16/2024 10:29 AM [facility] LAB Blood Venous blood specimen / Unknown Venipuncture / Unknown 09/16/2024 6:40 AM EST 09/16/2024 9:41 AM EST us Doris Vázquez MD LAB BLOOD ORDERABLES Fin al Result [facility] LAB [address] [place] [address], documented in this encounter Visit Diagnoses Diagnosis Gastro-esophageal reflux disease with esophagitis, without bleeding Essential (primary) hypertension Unspecified essential hypertension documented in this encounter Care Teams Orchardist Relationship Specialty Start Date End Date Doris Vázquez MD [address] [place] [id number] PCP - General Family Medicine 08/01/24 documented as of this encounter
== END 2025-08-16 12:36 | disposition home or self-care (01) ==
LOC: HO.HMCC 11:17
PROVIDERS: PCP Internal Medicine; Visit Provider Internal Medicine
DX: Z00.00 Encounter for general adult medical examination without abnormal findings (principal); M06.9 Rheumatoid arthritis, unspecified; R73.01 Impaired fasting glucose; E03.9 Hypothyroidism, unspecified; E78.5 Hyperlipidemia, unspecified; I10 Essential (primary) hypertension

== ENCOUNTER → 2025-08-16 11:16 | Outpatient (BNVA) | payer MEDICARE, OTHER, SELFPAY | PROVIDERS: PCP Internal Medicine; Visit Provider Internal Medicine | DX: Z13.31 Encounter for screening for depression (principal) | CPT/HCPCS: 96127 ==